=== PATIENT | male | born 1945 | race Caucasian/White ===

== ENCOUNTER 2021-02-22 11:18 | Emergency (ER) | payer OTHER, SELFPAY ==
[2021-02-22] VITALS (8 sets, daily range): BP systolic 98–165; BP diastolic 61–78; PULSE 50–106; RESP 15–18; TEMP 36.3–36.8; O2SAT 99–100
--- NOTE | ~2021-02-22 | XR_ITS ---
EXAMINATION: XR chest 2V DATE: 02/22/2021 13:20 INDICATION: Cough TECHNIQUE: AP and lateral views of the chest are obtained. COMPARISON: None available FINDINGS: The lungs are free of acute opacities. There is no pleural effusion or pneumothorax. The ca rdiomediastinal silhouette is normal. There is moderate thoracic spondylosis. IMPRESSION: 1. No acute cardiopulmonary abnormality. Reviewed, dictated and finalized at location A. OR ANALYST PROGRAMMER
--- NOTE | ~2021-02-22 | CT_ITS ---
EXAMINATION: CT abdomen pelvis w con DATE: 02/22/2021 14:45 INDICATION: Low abdominal pain. Diarrhea. TECHNIQUE: Computed tomography (CT) of the abdomen and pelvis was performed with 100 mL Omnipaque 350 intravenous contrast. Automated exposure control and iterative reconstruction technique were employe d. The dose-length product was 583.06 mGy-cm. COMPARISON: None. FINDINGS: The visualized portions of the lung bases demonstrate mild atelectasis. Calcified pulmonary nodules and calcified hilar lymph nodes are consistent with old granulomatous disease. No pleural ef fusion. The heart size is normal. There are coronary artery calcifications. No pericardial effusion. There is a small sliding hiatal hernia. The liver is normal. There are changes of cholecystectomy. Ca lcifications in the spleen are consistent with old granulomatous disease. The pancreas and adrenal gl ands are normal. There is cortical thinning of the kidneys. There is liquid stool in the colon correl ating with the symptom of diarrhea. There are scattered diverticula in the colon. There is mild wall thickening throughout the colon, consistent with colitis. The appendix is normal. The prostate is mil dly enlarged. There is a diverticulum of the third portion of the duodenum. There are no pathological ly enlarged lymph nodes. There is no free intraperitoneal fluid. There is mild thoracolumbar spondylo sis. IMPRESSION: 1. Pancolitis. Reviewed, dictated and finalized at location A. MECHANIC HELPER IMPRESSION: 1. Pancolitis.
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
--- NOTE | 2021-02-22 13:22 | PC.NURSE ---
Called Jacqueline from vascular access team for assistance with line and labs.
--- NOTE | 2021-02-22 13:44 | PC.NURSE ---
Jacqueline from vascular access at bedside
[2021-02-22] MEDS: SODIUM CHLORIDE 0.9% IV 1,000 ML 999 ML IV CONT ×3 (14:01→17:42)
[2021-02-22 14:06] LABS: Hematocrit 33.9 % (42.0-52.0); Mean Corpuscular HGB Conc 32.4 g/dl (32-36); Mean Corpuscular Hemoglobin 25.8 pg (26-34); Mean Corpuscular Volume 79.4 fl (80-100); Mean Platelet Volume 8.8 fl (7.4-10.4); Platelet Count Result 434 k/mm3 (150-375); Red Blood Count 4.27 M/mm3 (4.6-6.20); Red Cell Distribution Width 13.6 % (11.5-14.5); White Blood Count 8.6 K/mm3 (4.5-10.0)
[2021-02-22 14:16] LABS: Alanine Aminotransferase 16 U/L (4-50); Albumin Level 3.2 g/dL (3.5-5.1); Alkaline Phosphatase 76 U/L (38-126); Anion Gap 8 mmol/L (8-16); Aspartate Amino Transferase 24 U/L (17-59); Bilirubin,Total 0.5 mg/dL (0.2-1.3); Blood Urea Nitrogen 10 mg/dL (9-20); Calcium 8.8 mg/dL (8.4-10.2); Carbon Dioxide 29 mmol/L (22-30); Chloride 94 mmol/L (98-107); Estimated CRCL calculation 38 ml/min; Estimated Glomerular Filt Rate 50; Glucose 98 mg/dL (65-110); Lipase 38 U/L (23-300); Potassium 3.4 mmol/L (3.4-5.0); Sodium 131 mmol/L (137-145)
--- NOTE | 2021-02-22 14:33 | PC.NURSE ---
Pt off floor in CT scan
[2021-02-22 14:46] LABS: Band Neutrophils Percent 11 % (0-6); Lymphocytes Absolute Manual 0.86 K/mm3 (1.1-4.5); Monocytes Absolute Manual 0.43 K/mm3 (0.1-0.90); Monocytes Percent Manual 5 % (3-9); Neutrophils Absolute Manual 7.31 K/mm3 (1.3-6.7); Neutrophils Percent Manual 74 % (46-73); Total Cells Counted 100
[2021-02-22 14:47] LABS: Platelet Estimate Increased (Adequate)
[2021-02-22 16:50] LABS: Add Urine Microscopic? YES; Appearance Urine Clear (Clear); Bilirubin Urine Negative (Negative); Blood Urine Negative (Negative); Color Urine Yellow (Yellow); Glucose Urine UA Negative (Negative); Ketones Urine Trace mg/dL (Negative); Leukocyte Esterase Ur Negative LEU/UL (Negative); Mucus Urine Rare /lpf; Nitrate Urine Negative (Negative); Protein Urine Negative (Negative); RBC Urine 0-2 /hpf (0-2); Squamous Epithelial Cell Urine Rare /hpf (Few); Urobilinogen Urine Negative mg/dL (<2.0); WBC Urine 0-3 /hpf
--- NOTE | 2021-02-22 16:50 | PC.NURSE ---
Orthostatics complete. Pt incontinent of stool, assisted to BSC.
[2021-02-22 16:54] LABS: Specific Grav Ur 1.053 (1.001-1.035)
--- NOTE | 2021-02-22 19:01 | PC.NURSE ---
Spoke with lab as stool sample was walked down earlier by Bone Glue Maker, Natasha, but is not showing as received. Specimen is a send out but confirmed with Montez the sample is present in the lab.
== END 2021-02-22 18:55 | disposition home or self-care (01) ==
PROVIDERS: Emergency Provider General Practice
DX: K52.9 Noninfective gastroenteritis and colitis, unspecified (principal); I25.2 Old myocardial infarction; F03.90 Unspecified dementia, unspecified severity, without behavioral disturbance, psychotic disturbance, mood disturbance, and anxiety; Z86.73 Personal history of transient ischemic attack (TIA), and cerebral infarction without residual deficits; Z87.891 Personal history of nicotine dependence
CPT/HCPCS: 36415; 71046; 74177; 80053; 81001; 83690; 85025; 87324; 96360; 96361; 99284; J7030; Q9967

== ENCOUNTER 2021-09-04 12:56 | Inpatient (IN) | payer MEDICARE, MEDICAID, SELFPAY ==
--- NOTE | ~2021-09-04 | XR_ITS ---
EXAMINATION: XR knee RT 3V DATE: 09/04/2021 14:37 INDICATION: Right knee pain TECHNIQUE: Three views of the right knee were obtained. COMPARISON: None. FINDINGS: Alignment is normal. No fracture or osteochondral lesion. Joint spaces are normal with no e rosions. No joint effusion/synovitis. There is anterior soft tissue swelling of the knee. Scattered soft tissue calcifications are also noted about the knee and distal femur. IMPRESSION: 1. No acute osseous abnormality. Reviewed, dictated and finalized at location A.
--- NOTE | ~2021-09-04 | CT_ITS ---
EXAMINATION: CT brain wo con DATE: 09/05/2021 18:06 INDICATION: AMS . TECHNIQUE: Computed tomography (CT) of the head was performed without intravenous contrast. The mA wa s adjusted according to patient size. Iterative reconstruction technique was employed. The dose-lengt h product was 394.35 mGy-cm. COMPARISON: None FINDINGS: Exam limited by nonstandard positioning. No acute intracranial hemorrhage or extra-axial fluid collection. No hydrocephalus, mass, or herniation. No acute ischemic infarct. Unremarkable dural venous sinus attenuation. No acute osseous abnormality. The aerated spaces are clear. Mild atrophy. Atherosclerotic intracranial calcifications. IMPRESSION: No acute intracranial process. Reviewed, dictated and finalized at location K.
--- NOTE | ~2021-09-04 | CT_ITS ---
EXAMINATION: CT abdomen pelvis wo con DATE: 09/04/2021 14:30 INDICATION: GI bleed TECHNIQUE: Computed tomography (CT) of the abdomen and pelvis was performed without intravenous contr ast. The dose-length product (DLP) was 302.34 mGy-cm. Automated exposure control and iterative recons truction technique were employed. COMPARISON: 02/22/2021 FINDINGS: Calcified pulmonary nodules are consistent with old granulomatous disease. The heart size i s normal. There is a small sliding hiatal hernia. The gallbladder is surgically absent. The liver, sp tushar, pancreas, and adrenal glands are normal. The kidneys are unremarkable. There is calcified ather osclerosis of the aorta and many of the other arteries. There is diffuse wall thickening throughout t he colon. No pathologically enlarged abdominal or pelvic lymph nodes are identified. There is no free intraperitoneal gas or evidence of bowel obstruction. IMPRESSION: 1. Findings consistent with pancolitis. Reviewed, dictated and finalized at location A.
[2021-09-04 13:00] VITALS: PULSE 86; RESP 18; TEMP 36.1; O2SAT 100
--- NOTE | 2021-09-04 13:04 | ED.GIBLEED ---
HPI - GI Bleed General Chief complaint: GI Bleed Stated complaint: rectal bleed History of Present Illness HPI Narrative: pt here wiht bloody stool in depends pt has no c/o temp low and feels cold chills no f/abd pain/urine chagnes/cp/sob/f/uri/ or other c/o pt doen'st think he's on blood thinners or h/o gi bleed Related Data Allergies Allergy/AdvReac Type Severity Reaction Status Date / Time shellfish derived Allergy Hives Verified 02/22/21 12:05 Review of Systems Constitutional: Comments: CONSTITUTIONAL: Denies fever, chills, or sweats. EYES: Denies visual changes, redness, or discharge. ENT: Denies rhinorrhea, congestion, sore throat, or otalgia. CARDIOVASCULAR: Denies chest pain, palpitations, or edema. RESPIRATORY: Denies cough or dyspnea. GASTROINTESTINAL: Denies abdominal pain, nausea, vomiting, or diarrhea. GENITOURINARY: Denies dysuria or hematuria. pt found by NH staff with bloody stool in depends pt has no c/o SKIN: Denies rash or itching. MUSCULOSKELETAL: Denies back pain, joint pain, or myalgia. NEUROLOGIC: Denies headache, numbness, or weakness. PSYCHIATRIC: Denies anxiety or depression. [facility] Past Medical History Medical History (Updated 09/04/21 @ 14:54 by Nel Charels MD) CVA (cerebral vascular accident) Myocardial infarction Social History Social History (Updated 02/22/21 @ 12:34 by Nya Landrum MD) Smoking status: Former smoker Exam Const: Other: APPEARANCE: Well appearing, no pain in distress, well-nourished. Head normocephalic atraumtaic. EYES: PERRLA/EOMI, conjunctivae very clear. NOSE: Normal no drainage EARS:TMS clear Juan David Salinas, with good light reflex. THROAT: Pharynx clear, no exudate. NECK: Supple. No adenopathy, no masses. RESPIRATORY: Airway patent, repsirations nonlabored. Clear to auscultation bilaterally, no rales, rhonchi, wheezing. CARDIOVASCULAR: Regular rate and rhythm without murmurs rubs or gallops. ABDOMINAL: Soft, nontender, nondistended, no hepatosplenomegally heme positive mucus in vault no stool no hemorrhoids externally or fistulas MUSCULOSKELETAl: Moves all extremities. Strenght/ROM intact, No edema, No calf tenderness. but has right knee pain no deformity says pain all day isn't sure if xray done says no fall no swelling noted no ankle/hip pain on exam able to fully flex on own NEURO: Alert. Cranial nerves II through XII intact. Good gait. Good coordination SKIN:: Warm, dry. Normal Color PSYCHIATRIC: Normal affect/mood, normal interaction with parents. Course Reevaluation(s) Reevaluation #1: pt getting US guided iv for blood/access at 1410 Consultations Consultation #1: calling hospitalist for admission at 1453 Vital Signs Vital signs: Vital Signs Temperature 36.1 C L 09/04/21 13:00 Pulse Rate 86 09/04/21 13:00 Respiratory Rate 18 09/04/21 13:00 Pulse Oximetry 100 09/04/21 13:00 Oxygen Delivery Room Air 09/04/21 13:00 Temperature 36.1 C L 09/04/21 13:00 Pulse Rate 86 09/04/21 13:00 Respiratory Rate 18 09/04/21 13:00 Pulse Oximetry 100 09/04/21 13:00 Oxygen Delivery Room Air 09/04/21 13:00 MDM - GI Bleed Lab Data Result diagrams: 09/04/21 14:21 09/04/21 14:21 Labs: Lab Results 09/04/21 09/04/21 09/04/21 Range/Units 14:21 14:21 14:21 WBC 8.4 (4.5-10.0) K/mm3 RBC 4.15 L (4.6-6.20) M/mm3 Hgb 12.1 L (14.0-18.0) g/dL Hct 36.8 L (42.0-52.0) % MCV 88.7 (80-100) fl MCH 29.2 (26-34) pg MCHC 32.9 (32-36) g/dl RDW 14.0 (11.5-14.5) % Plt Count 327 (150-375) k/mm3 MPV 8.6 (7.4-10.4) fl Immature Gran % (Auto) Not Reportable Neut % (Auto) Not Reportable Lymph % (Auto) Not Reportable Collier % (Auto) Not Reportable Eos % (Auto) Not Reportable Baso % (Auto) Not Reportable Lymph # (Auto) Not Reportable Collier # (Auto) Not Reportable Eos # (Auto) Not Reportable Baso # (Auto) Not Reportable
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
--- NOTE | 2021-09-04 13:39 | PC.NURSE ---
IV nurse notified that we need ultrasound in order to gain IV access.
[2021-09-04 14:33] LABS: Hematocrit 36.8 % (42.0-52.0); Hemoglobin 12.1 g/dL (14.0-18.0); Mean Corpuscular HGB Conc 32.9 g/dl (32-36); Mean Corpuscular Hemoglobin 29.2 pg (26-34); Mean Corpuscular Volume 88.7 fl (80-100); Mean Platelet Volume 8.6 fl (7.4-10.4); Platelet Count Result 327 k/mm3 (150-375); Red Blood Count 4.15 M/mm3 (4.6-6.20); White Blood Count 8.4 K/mm3 (4.5-10.0)
[2021-09-04 14:43] LABS: Alanine Aminotransferase 9 U/L (6-50); Albumin Level 2.7 g/dL (3.5-5.1); Alkaline Phosphatase 74 U/L (38-126); Anion Gap 5 mmol/L (8-16); Aspartate Amino Transferase 16 U/L (17-59); Bilirubin,Total 0.7 mg/dL (0.2-1.3); Blood Urea Nitrogen 16 mg/dL (9-20); Calcium 7.8 mg/dL (8.4-10.2); Carbon Dioxide 27 mmol/L (22-30); Chloride 97 mmol/L (98-107); Estimated CRCL calculation 52 ml/min; Estimated Glomerular Filt Rate > 60; Glucose 92 mg/dL (65-110); Lipase 26 U/L (23-300); Potassium 3.7 mmol/L (3.4-5.0); Sodium 129 mmol/L (137-145)
[2021-09-04 14:45] LABS: INR 1.3
[2021-09-04 14:46] LABS: Partial Thromboplastin Time 32.6 SECONDS (22.3-36.8)
[2021-09-04] MEDS: SODIUM CHLORIDE 0.9% IV 1,000 ML 999 ML IV CONT (14:46)
[2021-09-04] MEDS: ONDANSETRON INJ 4 MG/2 ML VIAL IV PUSH (14:47)
[2021-09-04] MEDS: PANTOPRAZOLE SODIUM IV 40 MG VIAL IV PUSH (14:47)
[2021-09-04] MEDS: metroNIDAZOLE 500 MG/ISO 100ML 500 MG/100 ML BAG 100 MG IVPB (14:59)
[2021-09-04 15:17] LABS: Band Neutrophils Percent 13 % (0-6); Lymphocytes Absolute Manual 0.92 K/mm3 (1.1-4.5); Monocytes Percent Manual 6 % (3-9); Neutrophils Absolute Manual 6.97 K/mm3 (1.3-6.7); Neutrophils Percent Manual 70 % (46-73); Platelet Estimate Adequate (Adequate); Total Cells Counted 100
[2021-09-04 15:22] VITALS: BP 130/73; PULSE 19; RESP 18
--- NOTE | 2021-09-04 16:56 | PC.NURSE ---
unable to collect stool. Pt had one episode of watery blood tinged stool.
[2021-09-04 17:30] VITALS: BMI 23.4
--- NOTE | 2021-09-04 17:30 | ADMGEN ---
This patient, Philip Hernández, was admitted to Medical Room 248-. Patient/family oriented to hospital policies and general routines including ID bracelet, bed and alarms, visiting hours, pain management, procedures, bathroom and other care routines, personal items, smoking policy, room service/diet, and visiting hours. Information on how to activate the Rapid Response Team has been discussed. Patient/Family are encouraged to report perceived risks to care and to ask questions if they do not understand what they are told or what they should do.
[2021-09-04 18:23] VITALS: BP 133/74; PULSE 90; RESP 16; TEMP 36.6; O2SAT 100
[2021-09-04 19:46] VITALS: PULSE 107; O2SAT 94
[2021-09-04 20:00] VITALS: PULSE 107; RESP 16; O2SAT 94
--- NOTE | 2021-09-04 20:39 | PM.IMHP ---
H&P: HPI History of Present Illness Date/Time: 09/04/21 20:39 Chief Complaint: blood in the stools Narrative: this is a 75-year-old male with past medical history significant for stroke, myocardial infarction. Patient presents to the emergency room for evaluation of bright red blood per rectum according to patient he has been his usual state of health he denies any fevers, rigors, chills, abdominal pain, nausea, vomiting, diarrhea, no weight loss. preliminary workup was significant for CT abdomen and pelvis with findings typical for pancolitis, CBC showed a hemoglobin of 10 hematocrit of 33 MCV 88 sodium 129 a Hemoccult was positive. patient has been admitted for further evaluation, management and treatment. Review of Systems Review of Systems: Blood in the stools Constitutional: Constitutional: Denies chills, Denies fever(s), Denies malaise, Denies night sweats, Denies poor appetite and Denies weight loss Eyes: Eyes: Denies change in vision ENT: Denies dysphagia, Denies vertigo, Denies dizziness and Denies odynophagia Cardiovascular: Cardiovascular: Denies chest pain, Denies irregular heart rhythm, Denies lightheadedness, Denies palpitations and Denies dyspnea on exertion Respiratory: Respiratory: Denies chest congestion, Denies cough and Denies excessive phlegm production Gastrointestinal: Gastrointestinal: Denies abdominal pain, Reports hematochezia, Denies change in stool character, Denies coffee ground emesis, Denies dyspepsia, Denies heartburn, Denies nausea and Denies vomiting Genitourinary: Genitourinary: Denies dysuria Musculoskeletal: Musculoskeletal: Denies arthralgias, Denies joint swelling and Denies limited range of motion Integumentary/Breasts: Skin/Breast: Denies rash Neurologic: Denies focal weakness and Denies Sensory deficit (Neuro) Psychiatric: Psychiatric: Reports no additional psychiatric complaints and Reports as per HPI Endocrine: Endocrine: Denies cold intolerance, Denies flushing, Denies heat intolerance, Denies polyphagia, Denies polydipsia and Denies palpitations Hematologic/Lymphatic: Hematologic/Lymphatic: Reports no additional hematologic/lymphatic complaints and Reports as per HPI Allergic/Immunologic: Allergic/Immunologic: Reports no additional allergic/immunologic complaints and Reports as per HPI [facility] Past Medical History Medical History (Updated 09/06/21 @ 11:13 by Huma Dover PA-C) CVA (cerebral vascular accident) Myocardial infarction Social History Social History (Updated 02/22/21 @ 12:34 by Nya Landrum MD) Smoking status: Former smoker Tobacco type: pipe and cigars Alcohol intake: never Substance use: never Substance use type: does not use Spiritual care concerns: No Meds Home Medications and Allergies Home Medications Medication Instructions Recorded Confirmed Type acetaminophen 325 mg tablet 650 mg PO 6XD PRN Pain, Mild 09/04/21 09/04/21 History famotidine 20 mg tablet 20 mg PO BID 09/04/21 09/04/21 History folic acid 1 mg tablet 1 mg PO DAILY 09/04/21 09/04/21 History loperamide 2 mg capsule 2 mg PO QID PRN Diarrhea 09/04/21 09/04/21 History midodrine 2.5 mg tablet 7.5 mg PO QID 09/04/21 09/04/21 History Allergies Allergy/AdvReac Type Severity Reaction Status Date / Time shellfish derived Allergy Hives Verified 09/04/21 18:12 Vital Signs Vital Signs - 24 hr 09/04/21 13:00 09/04/21 15:22 09/04/21 18:23 Temperature 96.9 F L 97.8 F Pulse Rate 86 19 L 90 Respiratory Rate 18 18 16 Blood Pressure 130/73 133/74 Pulse Oximetry 100 100 Oxygen Delivery Room Air 09/04/21 19:46 Temperature Pulse Rate 107 H Respiratory Rate Blood Pressure Pulse Oximetry 94 Oxygen Delivery Room Air Exam Const: General: comfortable, no acute distress, well developed, alert, awake and ill appearing chronically Nutritional Appearance: average body habitus Orientation/consciousness: patient oriented x3 HENMT: Head: nor
[2021-09-04 23:46] VITALS: BP 106/64; PULSE 95; RESP 21; TEMP 36.9; O2SAT 100
[2021-09-05] MEDS: metroNIDAZOLE 500 MG/ISO 100ML 500 MG/100 ML BAG 100 MG IVPB ×3 (02:41→18:49)
[2021-09-05] MEDS: ACETAMINOPHEN 325 MG TABLET 650 MG PO (02:41)
[2021-09-05] MEDS: LOPERAMIDE HCL 2 MG CAPSULE PO (02:42)
[2021-09-05] MEDS: ONDANSETRON INJ 4 MG/2 ML VIAL IV PUSH (02:43)
[2021-09-05 06:00] VITALS: BP 113/51; PULSE 99; RESP 20; TEMP 36.1; O2SAT 98
[2021-09-05 07:48] LABS: Hematocrit 33.2 % (42.0-52.0); Hemoglobin 10.9 g/dL (14.0-18.0); Mean Corpuscular HGB Conc 32.8 g/dl (32-36); Mean Corpuscular Hemoglobin 28.9 pg (26-34); Mean Corpuscular Volume 88.1 fl (80-100); Mean Platelet Volume 8.5 fl (7.4-10.4); Platelet Count Result 273 k/mm3 (150-375); Red Blood Count 3.77 M/mm3 (4.6-6.20); Red Cell Distribution Width 13.9 % (11.5-14.5); White Blood Count 7.3 K/mm3 (4.5-10.0)
[2021-09-05 08:02] LABS: Alanine Aminotransferase 9 U/L (6-50); Albumin Level 2.3 g/dL (3.5-5.1); Alkaline Phosphatase 62 U/L (38-126); Anion Gap 5 mmol/L (8-16); Aspartate Amino Transferase 16 U/L (17-59); Bilirubin,Total 0.5 mg/dL (0.2-1.3); Blood Urea Nitrogen 12 mg/dL (9-20); Calcium 7.5 mg/dL (8.4-10.2); Carbon Dioxide 23 mmol/L (22-30); Chloride 102 mmol/L (98-107); Estimated CRCL calculation 52 ml/min; Estimated Glomerular Filt Rate > 60; Glucose 86 mg/dL (65-110); Potassium 3.4 mmol/L (3.4-5.0); Sodium 130 mmol/L (137-145)
[2021-09-05 08:19] LABS: Band Neutrophils Percent 14 % (0-6); Lymphocytes Absolute Manual 1.53 K/mm3 (1.1-4.5); Monocytes Absolute Manual 0.43 K/mm3 (0.1-0.90); Monocytes Percent Manual 6 % (3-9); Neutrophils Absolute Manual 5.32 K/mm3 (1.3-6.7); Neutrophils Percent Manual 59 % (46-73); Total Cells Counted 100
[2021-09-05 08:20] LABS: Atypical Lymphocytes Present; Platelet Estimate Adequate (Adequate)
[2021-09-05] MEDS: FOLIC ACID 1 MG TABLET PO (09:47)
[2021-09-05] MEDS: FAMOTIDINE 20 MG TABLET PO ×2 (09:47→17:32)
[2021-09-05] MEDS: MIDODRINE HCL 2.5 MG TABLET 7.5 MG PO ×4 (09:47→20:16)
[2021-09-05 10:01] VITALS: BMI 23.4
[2021-09-05 13:33] VITALS: BP 117/55; PULSE 64; RESP 18; TEMP 36.2; O2SAT 98
--- NOTE | 2021-09-05 15:56 | PM.IMPN ---
Progress Note: A&P Assessment and Plan (1) Acute metabolic encephalopathy: Code(s): G93.41 - Metabolic encephalopathy Status: Acute Assessment and Plan: -baseline mental status unknown -chart indicates hx of dementia -could be secondary to acute infection -check CT head, UA (2) Pancolitis: Code(s): K51.00 - Ulcerative (chronic) pancolitis without complications Status: Acute Assessment and Plan: -noted on CT abd/pelv -no fevers or leukocytosis -continue Levaquin/Flagyl (3) Acute GI bleeding: Code(s): K92.2 - Gastrointestinal hemorrhage, unspecified Status: Acute Assessment and Plan: -ER notes indicate he was having bright red blood in his stool -likely secondary to pancolitis -stool occult ordered -monitor hgb, has been stable, today is 12.1 (4) Hyponatremia: Code(s): E87.1 - Hypo-osmolality and hyponatremia Status: Acute Assessment and Plan: -appears to be chronic, near his baseline -monitor BMP Subjective Date/time seen: 09/05/21 15:56 Interval history: 75 yo male w/ hx of [place], CVA, and dementia, admitted for pancolitis. Hx limited secondary to mental status. Some hx obtained from chart review. Pt A/Ox1-2. Denies pain currently but does have abdominal tenderness. Somnolent but arousable. Denies N/V. No cp/sob. No other complaints. Review of Systems Review of Systems: ROS unobtainable: Yes unobtainable due to mental status Exam Narrative: General: No acute distress,chronically ill appearing, somnolent but arousable Eyes: PERRL, no scleral icterus HEENT: NCAT, external ears normal, MMM Respiratory: No respiratory distress, Lungs CTA bilaterally, no wheezing Cardiovascular: RRR, no murmur Abdominal: Soft, moderate diffuse ttp, non distended Musculoskeletal: Moves all 4 extremities, no edema Neurological: A/Ox1-2, no facial asymmetry Skin: Warm, dry Psychiatric: Confused Objective Data Vital Signs Vital Signs: Vital Signs - 24 hr 09/04/21 18:23 09/04/21 19:46 09/04/21 20:00 Temperature 97.8 F Pulse Rate 90 107 H 107 H Respiratory Rate 16 16 Blood Pressure 133/74 Pulse Oximetry 100 94 94 Oxygen Delivery Room Air Room Air 09/04/21 23:46 09/05/21 06:00 09/05/21 13:33 Temperature 98.4 F 97.0 F L 97.1 F L Pulse Rate 95 99 64 Respiratory Rate 21 H 20 18 Blood Pressure 106/64 113/51 L 117/55 L Pulse Oximetry 100 98 98 Oxygen Delivery Intake/Output Intake/Output: Intake & Output 09/02/21 09/03/21 09/04/21 09/05/21 23:59 23:59 23:59 23:59 Intake Total 1250 430 Output Total 400 Balance 1250 30 Meds/Results Medications: Active Medications Generic Name Dose Route Start Last Admin Trade Name Freq PRN Reason Stop Dose Admin Acetaminophen 650 mg 09/05/21 01:42 09/05/21 02:41 Acetaminophen 325 Mg Tablet PO 650 mg Q4H PRN Administration Pain Rated 1-3 Collagenase 1 applic 09/05/21 09:00 Collagenase Oint 30 Gm Tube TOPICAL QAM [facility] Famotidine 20 mg 09/05/21 09:00 09/05/21 09:47 Famotidine 20 Mg Tablet PO 20 mg BID ANKIT Administration Folic Acid 1 mg 09/05/21 09:00 09/05/21 09:47 Folic Acid 1 Mg Tablet PO 1 mg DAILY ANKIT Administration Levofloxacin/Dextrose 750 mg in 150 mls @ 100 mls/hr 09/05/21 15:00 Levaquin 750 Mg/D5w 150 Ml IVPB Q24H ANKIT Metronidazole 500 mg in 100 mls @ 100 mls/hr 09/05/21 02:00 09/05/21 09:46 Flagyl 500 Mg/Iso Soln 100 Ml IVPB 100 mls/hr Q8H ANKIT Administration Loperamide HCl 2 mg 09/05/21 01:42 09/05/21 02:42 Loperamide Hcl 2 Mg Capsule PO 2 mg QID PRN Administration Diarrhea Midodrine 7.5 mg 09/05/21 08:00 09/05/21 11:50 Midodrine Hcl 2.5 Mg Tablet PO 7.5 mg 0800,1200,1600,2000 ANKIT Administration Ondansetron HCl 4 mg 09/04/21 20:37 09/05/21 02:43 Ondansetron Inj 4 Mg/2 Ml Vial IV PUSH 4 mg Q4H PRN A
[2021-09-05] MEDS: COLLAGENASE OINT 30 GM TUBE 1 APPLIC TOPICAL (18:49)
[2021-09-05 20:00] VITALS: PULSE 64; RESP 18; O2SAT 98
[2021-09-05 21:48] LABS: IFOB Positive Control Positive; Immunochemical Fecal Occult Bl Positive (N)
[2021-09-05 22:00] VITALS: BP 129/73; PULSE 86; RESP 21; TEMP 36.8; O2SAT 100
[2021-09-06] MEDS: metroNIDAZOLE 500 MG/ISO 100ML 500 MG/100 ML BAG 100 MG IVPB ×3 (01:24→17:49)
[2021-09-06 02:11] LABS: Appearance Urine Clear (Clear); Bilirubin Urine Negative (Negative); Blood Urine Negative (Negative); Color Urine Yellow (Yellow); Glucose Urine UA Negative (Negative); Ketones Urine Negative (Negative); Leukocyte Esterase Ur Negative LEU/UL (Negative); Nitrate Urine Negative (Negative); Protein Urine 1+ mg/dL (Negative); Specific Grav Ur >= 1.030 (1.001-1.035); Urobilinogen Urine 0.2 mg/dL (<2.0); pH Urine 6.5 (5.0-9.0)
[2021-09-06 02:28] LABS: Bacteria Urine Trace /hpf; Mucus Urine Rare /lpf; Squamous Epithelial Cell Urine Rare /hpf (Few); WBC Urine 0-3 /hpf
[2021-09-06 03:31] LABS: Add Urine Microscopic? YES
[2021-09-06 06:03] VITALS: BP 103/50; PULSE 74; RESP 21; TEMP 36.9; O2SAT 100
[2021-09-06 06:37] LABS: Basophils Absolute Auto 0.1 K/mm3 (0.0-0.1); Basophils Percent Auto 1.1 % (0.2-1.2); Eosinophils Percent Auto 0.3 % (0-4.4); Hematocrit 33.9 % (42.0-52.0); Hemoglobin 10.9 g/dL (14.0-18.0); Immature Granulocyte Absolute 0.08 K/mm3 (0.00-0.031); Lymphocytes Absolute Auto 0.77 K/mm3 (0.9-3.2); Lymphocytes Percent Auto 9.7 % (18.3-44.2); Mean Corpuscular HGB Conc 32.2 g/dl (32-36); Mean Corpuscular Hemoglobin 29.1 pg (26-34); Mean Corpuscular Volume 90.6 fl (80-100); Mean Platelet Volume 8.9 fl (7.4-10.4); Monocytes Absolute Auto 0.5 K/mm3 (0.1-0.6); Monocytes Percent Auto 6.3 % (2.6-8.5); Neutrophils Absolute Auto 6.5 K/mm3 (1.3-6.7); Neutrophils Percent Auto 81.6 % (45.5-73.1); Platelet Count Result 295 k/mm3 (150-375); Red Blood Count 3.74 M/mm3 (4.6-6.20); Red Cell Distribution Width 14.1 % (11.5-14.5)
[2021-09-06 06:41] LABS: Alanine Aminotransferase 6 U/L (6-50); Albumin Level 2.2 g/dL (3.5-5.1); Alkaline Phosphatase 58 U/L (38-126); Anion Gap 5 mmol/L (8-16); Aspartate Amino Transferase 13 U/L (17-59); Bilirubin,Total 0.3 mg/dL (0.2-1.3); Blood Urea Nitrogen 7 mg/dL (9-20); Calcium 7.5 mg/dL (8.4-10.2); Carbon Dioxide 21 mmol/L (22-30); Chloride 105 mmol/L (98-107); Estimated CRCL calculation 58 ml/min; Estimated Glomerular Filt Rate > 60; Glucose 69 mg/dL (65-110); Potassium 3.2 mmol/L (3.4-5.0); Sodium 131 mmol/L (137-145)
[2021-09-06] MEDS: FAMOTIDINE 20 MG TABLET PO ×2 (10:24→16:27)
[2021-09-06] MEDS: POTASSIUM CHLORIDE 20 MEQ TABLET 40 MEQ PO (10:24)
[2021-09-06] MEDS: MIDODRINE HCL 2.5 MG TABLET 7.5 MG PO ×4 (10:25→20:12)
[2021-09-06] MEDS: FOLIC ACID 1 MG TABLET PO (10:25)
[2021-09-06] MEDS: COLLAGENASE OINT 30 GM TUBE 1 APPLIC TOPICAL (10:25)
[2021-09-06] MEDS: ONDANSETRON INJ 4 MG/2 ML VIAL IV PUSH (10:47)
--- NOTE | 2021-09-06 11:10 | PM.IMPN ---
Progress Note: A&P Assessment and Plan (1) Acute metabolic encephalopathy: Code(s): G93.41 - Metabolic encephalopathy Status: Acute Assessment and Plan: -baseline mental status unknown - tried calling but number in chart was disconnected -chart indicates hx of dementia -could be secondary to acute infection -ct head and UA unremarkable (2) Pancolitis: Code(s): K51.00 - Ulcerative (chronic) pancolitis without complications Status: Acute Assessment and Plan: -noted on CT abd/pelv -no fevers or leukocytosis -continue Levaquin/Flagyl -still having persistent diarrhea (3) Acute GI bleeding: Code(s): K92.2 - Gastrointestinal hemorrhage, unspecified Status: Acute Assessment and Plan: -ER notes indicate he was having bright red blood in his stool -likely secondary to pancolitis -stool occult ordered -monitor hgb, has been stable, today is 10.9 (4) Hyponatremia: Code(s): E87.1 - Hypo-osmolality and hyponatremia Status: Acute Assessment and Plan: -appears to be chronic, near his baseline -monitor BMP (5) Hypokalemia: Code(s): E87.6 - Hypokalemia Status: Acute Assessment and Plan: -mild -monitor and replace as indicated -daily BMP Subjective Date/time seen: 09/06/21 11:10 Interval history: 75 yo male w/ hx of [place], CVA, and dementia, admitted for pancolitis. Hx limited secondary to mental status. Some hx obtained from chart review. Pt A/Ox1-2. Denies N/V although RN states he was dry heaving with his pills this AM. He also denies diarrhea but RN states he just had an episode of watery stool. Denies abdominal pain but does have tenderness. Further hx limited secondary to mental status. Attempted to call today but number in chart was disconnected. Review of Systems Review of Systems: ROS unobtainable: Yes unobtainable due to mental status Exam Narrative: General: No acute distress,chronically ill appearing, somnolent but arousable Eyes: PERRL, no scleral icterus HEENT: NCAT, external ears normal, MMM Respiratory: No respiratory distress, Lungs CTA bilaterally, no wheezing Cardiovascular: RRR, no murmur Abdominal: Soft, moderate diffuse ttp, non distended Musculoskeletal: Moves all 4 extremities, no edema Neurological: A/Ox1-2, no facial asymmetry Skin: Warm, dry Psychiatric: Confused Objective Data Vital Signs Vital Signs: Vital Signs - 24 hr 09/05/21 13:33 09/05/21 20:00 09/05/21 22:00 Temperature 97.1 F L 98.3 F Pulse Rate 64 64 86 Respiratory Rate 18 18 21 H Blood Pressure 117/55 L 129/73 Pulse Oximetry 98 98 100 Oxygen Delivery Room Air 09/06/21 06:03 09/06/21 08:00 Temperature 98.5 F Pulse Rate 74 Respiratory Rate 21 H Blood Pressure 103/50 L Pulse Oximetry 100 Oxygen Delivery Room Air Intake/Output Intake/Output: Intake & Output 09/03/21 09/04/21 09/05/21 09/06/21 23:59 23:59 23:59 23:59 Intake Total 1250 780 340 Output Total 400 400 Balance 1250 380 -60 Meds/Results Medications: Active Medications Generic Name Dose Route Start Last Admin Trade Name Baldomero PRN Reason Stop Dose Admin Acetaminophen 650 mg 09/05/21 01:42 09/05/21 02:41 Acetaminophen 325 Mg Tablet PO 650 mg Q4H PRN Administration Pain Rated 1-3 Collagenase 1 applic 09/05/21 09:00 09/06/21 10:25 Collagenase Oint 30 Gm Tube TOPICAL 1 applic QAM ANKIT Administration Famotidine 20 mg 09/05/21 09:00 09/06/21 10:24 Famotidine 20 Mg Tablet PO 20 mg BID ANKIT Administration Folic Acid 1 mg 09/05/21 09:00 09/06/21 10:25 Folic Acid 1 Mg Tablet PO 1 mg DAILY ANKIT Administration Levofloxacin/Dextrose 750 mg in 150 mls @ 100 mls/hr 09/05/21 15:00 09/05/21 18:55 Levaquin 750 Mg/D5w 150 Ml IVPB Infused Q24H ANKIT Infusion Metronidazole 500 mg in 100 mls @ 100 mls/hr 09/05/21 02:00 0
[2021-09-06] MEDS: KCL 20 MEQ/D5/0.9% SOD CHL 1,000 ML 75 ML IV CONT (12:30)
[2021-09-06 14:00] VITALS: BP 117/65; PULSE 68; RESP 16; TEMP 36.1; O2SAT 99
[2021-09-06 20:29] VITALS: BP 138/69; PULSE 67; RESP 18; TEMP 35.7; O2SAT 100
[2021-09-07] VITALS: BP 136/64; PULSE 71; RESP 20; TEMP 35.7; O2SAT 100
[2021-09-07] MEDS: metroNIDAZOLE 500 MG/ISO 100ML 500 MG/100 ML BAG 100 MG IVPB ×3 (01:51→18:18)
[2021-09-07 04:23] VITALS: BP 110/54; PULSE 70; RESP 16; TEMP 36.3; O2SAT 100
[2021-09-07 05:39] LABS: Basophils Percent Auto 0.4 % (0.2-1.2); Eosinophils Percent Auto 0.6 % (0-4.4); Hematocrit 33.3 % (42.0-52.0); Hemoglobin 11.1 g/dL (14.0-18.0); Immature Granulocyte Absolute 0.08 K/mm3 (0.00-0.031); Immature Granulocyte Percent A 1.1 % (0-0.5); Lymphocytes Absolute Auto 0.57 K/mm3 (0.9-3.2); Lymphocytes Percent Auto 7.8 % (18.3-44.2); Mean Corpuscular HGB Conc 33.3 g/dl (32-36); Mean Corpuscular Hemoglobin 29.8 pg (26-34); Mean Corpuscular Volume 89.5 fl (80-100); Mean Platelet Volume 8.6 fl (7.4-10.4); Monocytes Absolute Auto 0.4 K/mm3 (0.1-0.6); Monocytes Percent Auto 5.1 % (2.6-8.5); Neutrophils Absolute Auto 6.2 K/mm3 (1.3-6.7); Platelet Count Result 264 k/mm3 (150-375); Red Blood Count 3.72 M/mm3 (4.6-6.20); Red Cell Distribution Width 14.2 % (11.5-14.5); White Blood Count 7.3 K/mm3 (4.5-10.0)
[2021-09-07] MEDS: KCL 20 MEQ/D5/0.9% SOD CHL 1,000 ML 75 ML IV CONT (05:50)
[2021-09-07 05:54] LABS: Alanine Aminotransferase 8 U/L (6-50); Albumin Level 2.3 g/dL (3.5-5.1); Alkaline Phosphatase 63 U/L (38-126); Anion Gap 3 mmol/L (8-16); Aspartate Amino Transferase 13 U/L (17-59); Bilirubin,Total 0.3 mg/dL (0.2-1.3); Blood Urea Nitrogen 9 mg/dL (9-20); Calcium 7.6 mg/dL (8.4-10.2); Carbon Dioxide 24 mmol/L (22-30); Chloride 107 mmol/L (98-107); Estimated CRCL calculation 58 ml/min; Estimated Glomerular Filt Rate > 60; Glucose 99 mg/dL (65-110); Potassium 4.1 mmol/L (3.4-5.0); Sodium 134 mmol/L (137-145)
--- NOTE | 2021-09-07 09:07 | PCNFU ---
Nutrition Follow-Up Complete: Suboptimal po intake related to current diet order and reduced appetite as evidenced by clear liquid status with poor intake Goal: Meet nutritional needs Patient is progressing towards goal. We will continue current goal. Pt current nutrition is clear liquids with Ensure Clear TID. Last recorded weight is 65.9 kg, no new weight to report. Bowel Motility:+Bm reported 09/07-no diarrhea per patient. Labs Reviewed:Na 134, Alb 2.3,Hct 33.3,Hgb 11.1 Meds Noted:Folic Acid, Pepcid, Levaquin, Flagyl, KCL Skin: WNL Additional Notes: patient seen today for nutrition follow up. He was starting to drink coffee this morning. He states to not liking the apple flavor of the ensure clear, flavor change to mixed chow. Diet supplement is providing 240 kcals and 8 gms protein. Recommend advancing diet as tolerated per MD orders. Monitoring: Monitor intake, diet order, tolerance, wt, labs. Follow up in 5 days.
[2021-09-07] MEDS: SODIUM CHLORIDE 0.9% IV 1,000 ML 75 ML IV CONT (10:02)
[2021-09-07] MEDS: FOLIC ACID 1 MG TABLET PO (10:09)
[2021-09-07] MEDS: MIDODRINE HCL 2.5 MG TABLET 7.5 MG PO ×4 (10:09→20:36)
[2021-09-07] MEDS: COLLAGENASE OINT 30 GM TUBE 1 APPLIC TOPICAL (10:09)
[2021-09-07] MEDS: FAMOTIDINE 20 MG TABLET PO ×2 (10:09→17:12)
--- NOTE | 2021-09-07 10:19 | PM.IMPN ---
Progress Note: A&P Assessment and Plan (1) Pancolitis: Code(s): K51.00 - Ulcerative (chronic) pancolitis without complications Status: Acute Assessment and Plan: -noted on CT abd/pelv -no fevers or leukocytosis -continue Levaquin/Flagyl -diarrhea improving, move to full liquids -plan on outpatient GI follow up (2) Acute metabolic encephalopathy: Code(s): G93.41 - Metabolic encephalopathy Status: Acute Assessment and Plan: -chart indicates hx of dementia -could be secondary to acute infection -ct head and UA unremarkable -more alert today, family at bedside today states he is at his baseline mental status (3) Acute GI bleeding: Code(s): K92.2 - Gastrointestinal hemorrhage, unspecified Status: Acute Assessment and Plan: -ER notes indicate he was having bright red blood in his stool -likely secondary to pancolitis -stool occult positive -monitor hgb, has been stable, today is 11.1 (4) Hyponatremia: Code(s): E87.1 - Hypo-osmolality and hyponatremia Status: Acute Assessment and Plan: -appears to be chronic, near his baseline -monitor BMP (5) Hypokalemia: Code(s): E87.6 - Hypokalemia Status: Acute Assessment and Plan: -mild -monitor and replace as indicated -daily BMP Subjective Date/time seen: 09/07/21 10:19 Interval history: 75 yo male w/ hx of [place], CVA, and dementia, admitted for pancolitis. Hx limited secondary to mental status. Some hx obtained from chart review. Pt A/Ox2 today. Much more alert. Family at bedside. He is tired but otherwise has no complaints. No abd pain. No N/V. RN reports no diarrhea. Review of Systems Review of Systems: ROS unobtainable: Yes unobtainable due to mental status Exam Narrative: General: No acute distress, chronically ill appearing, elderly Eyes: PERRL, no scleral icterus HEENT: NCAT, external ears normal, MMM Respiratory: No respiratory distress, Lungs CTA bilaterally, no wheezing Cardiovascular: RRR, no murmur Abdominal: Soft, non tender, non distended, no rebound or guarding Musculoskeletal: Moves all 4 extremities, no edema Neurological: A/Ox2, no facial asymmetry, speech clear Skin: Warm, dry Psychiatric: Confused Objective Data Vital Signs Vital Signs: Vital Signs - 24 hr 09/06/21 14:00 09/06/21 20:29 09/06/21 20:00 Temperature 97.0 F L 96.3 F L Pulse Rate 68 67 Respiratory Rate 16 18 Blood Pressure 117/65 138/69 Pulse Oximetry 99 100 Oxygen Delivery Room Air 09/07/21 00:00 09/07/21 04:23 09/07/21 08:00 Temperature 96.2 F L 97.4 F L Pulse Rate 71 70 Respiratory Rate 20 16 Blood Pressure 136/64 110/54 L Pulse Oximetry 100 100 Oxygen Delivery Room Air Intake/Output Intake/Output: Intake & Output 09/04/21 09/05/21 09/06/21 09/07/21 23:59 23:59 23:59 23:59 Intake Total 1250 352 858 4492 Output Total 400 450 Balance 1250 338 650 1068 Meds/Results Medications: Active Medications Generic Name Dose Route Start Last Admin Trade Name Freq PRN Reason Stop Dose Admin Acetaminophen 650 mg 09/05/21 01:42 09/05/21 02:41 Acetaminophen 325 Mg Tablet PO 650 mg Q4H PRN Administration Pain Rated 1-3 Collagenase 1 applic 09/05/21 09:00 09/07/21 10:09 Collagenase Oint 30 Gm Tube TOPICAL 1 applic QAM ANKIT Administration Famotidine 20 mg 09/05/21 09:00 09/07/21 10:09 Famotidine 20 Mg Tablet PO 20 mg BID ANKIT Administration Folic Acid 1 mg 09/05/21 09:00 09/07/21 10:09 Folic Acid 1 Mg Tablet PO 1 mg DAILY ANKIT Administration Levofloxacin/Dextrose 750 mg in 150 mls @ 100 mls/hr 09/05/21 15:00 09/06/21 16:39 Levaquin 750 Mg/D5w 150 Ml IVPB Infused Q24H ANKIT Infusion Metronidazole 500 mg in 100 mls @ 100 mls/hr 09/05/21 02:00 09/07/21 10:04 Flagyl 500 Mg/Iso Soln 100 Ml IVPB 100 mls/hr Q8H ANKIT Administrati
[2021-09-07 14:00] VITALS: BP 115/62; PULSE 70; RESP 18; TEMP 36.3; O2SAT 97
[2021-09-07 20:28] VITALS: BP 145/65; PULSE 69; RESP 76; TEMP 36; O2SAT 100
[2021-09-08] VITALS: BP 138/65; PULSE 69; RESP 16; TEMP 35.8; O2SAT 98
[2021-09-08] MEDS: metroNIDAZOLE 500 MG/ISO 100ML 500 MG/100 ML BAG 100 MG IVPB ×3 (02:01→18:23)
[2021-09-08] MEDS: SODIUM CHLORIDE 0.9% IV 1,000 ML 75 ML IV CONT (02:02)
[2021-09-08 02:59] VITALS: BP 144/70; PULSE 72; RESP 16; TEMP 36; O2SAT 100
[2021-09-08 05:42] LABS: Hemoglobin 10.6 g/dL (14.0-18.0); Mean Corpuscular HGB Conc 32.1 g/dl (32-36); Mean Corpuscular Volume 90.4 fl (80-100); Mean Platelet Volume 8.7 fl (7.4-10.4); Platelet Count Result 255 k/mm3 (150-375); Red Blood Count 3.65 M/mm3 (4.6-6.20); Red Cell Distribution Width 14.3 % (11.5-14.5); White Blood Count 7.8 K/mm3 (4.5-10.0)
[2021-09-08 05:50] LABS: Alanine Aminotransferase 6 U/L (6-50); Alkaline Phosphatase 58 U/L (38-126); Anion Gap 8 mmol/L (8-16); Aspartate Amino Transferase 17 U/L (17-59); Bilirubin,Total 0.2 mg/dL (0.2-1.3); Blood Urea Nitrogen 7 mg/dL (9-20); Calcium 7.2 mg/dL (8.4-10.2); Carbon Dioxide 18 mmol/L (22-30); Chloride 109 mmol/L (98-107); Estimated CRCL calculation 58 ml/min; Estimated Glomerular Filt Rate > 60; Glucose 79 mg/dL (65-110); Sodium 135 mmol/L (137-145)
[2021-09-08 07:43] LABS: Band Neutrophils Percent 21 % (0-6); Eosinophils Absolute Manual 0.07 K/mm3 (0.02-0.5); Eosinophils Percent Manual 1 % (0-4); Lymphocytes Absolute Manual 0.15 K/mm3 (1.1-4.5); Monocytes Absolute Manual 0.31 K/mm3 (0.1-0.90); Monocytes Percent Manual 4 % (3-9); Neutrophils Absolute Manual 7.25 K/mm3 (1.3-6.7); Neutrophils Percent Manual 72 % (46-73); Total Cells Counted 100
[2021-09-08 07:45] LABS: Burr Cells 2+ (NORMAL); Hyperchromasia 2+ (NORMAL); Platelet Estimate Adequate (Adequate)
[2021-09-08 07:49] VITALS: BP 129/61; PULSE 68; RESP 12; TEMP 36.6; O2SAT 100
[2021-09-08 08:36] VITALS: O2SAT 93
[2021-09-08] MEDS: FAMOTIDINE 20 MG TABLET PO ×2 (09:09→16:47)
[2021-09-08] MEDS: MIDODRINE HCL 2.5 MG TABLET 7.5 MG PO ×4 (09:09→19:33)
[2021-09-08] MEDS: FOLIC ACID 1 MG TABLET PO (09:09)
[2021-09-08] MEDS: COLLAGENASE OINT 30 GM TUBE 1 APPLIC TOPICAL (09:10)
--- NOTE | 2021-09-08 09:57 | PM.IMPN ---
Progress Note: A&P Assessment and Plan (1) Pancolitis: Code(s): K51.00 - Ulcerative (chronic) pancolitis without complications Status: Acute Assessment and Plan: -noted on CT abd/pelv -no fevers or leukocytosis -continue Levaquin/Flagyl -diarrhea improving, move to low fiber -plan on outpatient GI follow up (2) Acute metabolic encephalopathy: Code(s): G93.41 - Metabolic encephalopathy Status: Acute Assessment and Plan: -chart indicates hx of dementia -could be secondary to acute infection -ct head and UA unremarkable -more alert today, family at bedside states he is at his baseline mental status (3) Acute GI bleeding: Code(s): K92.2 - Gastrointestinal hemorrhage, unspecified Status: Acute Assessment and Plan: -ER notes indicate he was having bright red blood in his stool -likely secondary to pancolitis -stool occult positive -monitor hgb, has been stable, today is 10.6 (4) Hyponatremia: Code(s): E87.1 - Hypo-osmolality and hyponatremia Status: Acute Assessment and Plan: -appears to be chronic, near his baseline -monitor BMP (5) Hypokalemia: Code(s): E87.6 - Hypokalemia Status: Acute Assessment and Plan: -mild -monitor and replace as indicated -daily BMP -IVF w/ KCL Subjective Date/time seen: 09/08/21 09:57 Interval history: 75 yo male w/ hx of [place], CVA, and dementia, admitted for pancolitis. Hx limited secondary to mental status. Some hx obtained from chart review. Pt A/Ox3 today. Even more alert today. No abd pain. No N/V. Pt admits to mild diarrhea but this is improving. He was doing okay on full liquids, will move to low fiber today. Review of Systems Review of Systems: All systems reviewed & are unremarkable except as noted in HPI and below Exam Narrative: General: No acute distress, chronically ill appearing, elderly, thin stature Eyes: PERRL, no scleral icterus HEENT: NCAT, external ears normal, MMM Respiratory: No respiratory distress, Lungs CTA bilaterally, no wheezing Cardiovascular: RRR, no murmur Abdominal: Soft, non tender, non distended, no rebound or guarding Musculoskeletal: Moves all 4 extremities, no edema Neurological: A/Ox3, no facial asymmetry, speech clear Skin: Warm, dry Psychiatric: Confused Objective Data Vital Signs Vital Signs: Vital Signs - 24 hr 09/07/21 14:00 09/07/21 20:28 09/07/21 20:00 Temperature 97.4 F L 96.8 F L Pulse Rate 70 69 Respiratory Rate 18 76 H Blood Pressure 115/62 145/65 H Pulse Oximetry 97 100 Oxygen Delivery Room Air 09/08/21 00:00 09/08/21 02:59 09/08/21 07:49 Temperature 96.4 F L 96.8 F L 98 F Pulse Rate 69 72 68 Respiratory Rate 16 16 12 Blood Pressure 138/65 144/70 H 129/61 Pulse Oximetry 98 100 100 Oxygen Delivery 09/08/21 08:36 09/08/21 08:00 Temperature Pulse Rate Respiratory Rate Blood Pressure Pulse Oximetry 93 Oxygen Delivery Autopap Autopap Intake/Output Intake/Output: Intake & Output 09/05/21 09/06/21 09/07/21 09/08/21 23:59 23:59 23:59 23:59 Intake Total 020 018 8282 640 Output Total 400 450 Balance 171 107 3440 640 Meds/Results Medications: Active Medications Generic Name Dose Route Start Last Admin Trade Name Freq PRN Reason Stop Dose Admin Acetaminophen 650 mg 09/05/21 01:42 09/05/21 02:41 Acetaminophen 325 Mg Tablet PO 650 mg Q4H PRN Administration Pain Rated 1-3 Collagenase 1 applic 09/05/21 09:00 09/08/21 09:10 Collagenase Oint 30 Gm Tube TOPICAL 1 applic QAM ANKIT Administration Famotidine 20 mg 09/05/21 09:00 09/08/21 09:09 Famotidine 20 Mg Tablet PO 20 mg BID ANKIT Administration Folic Acid 1 mg 09/05/21 09:00 09/08/21 09:09 Folic Acid 1 Mg Tablet PO 1 mg DAILY ANKIT Administration Levofloxacin/Dextrose 750 mg in 150 mls @ 100 mls/hr 09/05/21 15:00 09/07/21
[2021-09-08] MEDS: KCL 20 MEQ/D5/0.9% SOD CHL 1,000 ML 75 ML IV CONT (11:53)
[2021-09-08 15:45] VITALS: BP 140/68; PULSE 72; RESP 14; TEMP 36.3; O2SAT 100
[2021-09-08] MEDS: ONDANSETRON INJ 4 MG/2 ML VIAL IV PUSH (19:32)
[2021-09-08 22:00] VITALS: BP 132/80; PULSE 68; RESP 14; TEMP 36.4; O2SAT 100
[2021-09-09] MEDS: LOPERAMIDE HCL 2 MG CAPSULE PO ×2 (01:06→21:27)
[2021-09-09] MEDS: ONDANSETRON INJ 4 MG/2 ML VIAL IV PUSH (01:06)
[2021-09-09] MEDS: metroNIDAZOLE 500 MG/ISO 100ML 500 MG/100 ML BAG 100 MG IVPB ×3 (01:06→17:04)
[2021-09-09] MEDS: KCL 20 MEQ/D5/0.9% SOD CHL 1,000 ML 75 ML IV CONT (03:14)
[2021-09-09 05:02] VITALS: BP 136/62; PULSE 69; RESP 16; TEMP 36.4; O2SAT 98
[2021-09-09 05:48] LABS: Basophils Percent Auto 0.2 % (0.2-1.2); Eosinophils Absolute Auto 0.1 K/mm3 (0-0.3); Eosinophils Percent Auto 0.9 % (0-4.4); Hematocrit 31.4 % (42.0-52.0); Hemoglobin 10.5 g/dL (14.0-18.0); Immature Granulocyte Absolute 0.09 K/mm3 (0.00-0.031); Immature Granulocyte Percent A 1.1 % (0-0.5); Lymphocytes Absolute Auto 0.89 K/mm3 (0.9-3.2); Lymphocytes Percent Auto 11.1 % (18.3-44.2); Mean Corpuscular HGB Conc 33.4 g/dl (32-36); Mean Corpuscular Hemoglobin 29.5 pg (26-34); Mean Corpuscular Volume 88.2 fl (80-100); Mean Platelet Volume 8.6 fl (7.4-10.4); Monocytes Absolute Auto 0.5 K/mm3 (0.1-0.6); Monocytes Percent Auto 6.7 % (2.6-8.5); Neutrophils Absolute Auto 6.4 K/mm3 (1.3-6.7); Platelet Count Result 242 k/mm3 (150-375); Red Blood Count 3.56 M/mm3 (4.6-6.20); Red Cell Distribution Width 14.4 % (11.5-14.5)
[2021-09-09 05:58] LABS: Alanine Aminotransferase 7 U/L (6-50); Alkaline Phosphatase 58 U/L (38-126); Anion Gap 3 mmol/L (8-16); Aspartate Amino Transferase 13 U/L (17-59); Bilirubin,Total < 0.1 mg/dL (0.2-1.3); Blood Urea Nitrogen 6 mg/dL (9-20); Calcium 7.2 mg/dL (8.4-10.2); Carbon Dioxide 20 mmol/L (22-30); Chloride 111 mmol/L (98-107); Estimated CRCL calculation 65 ml/min; Estimated Glomerular Filt Rate > 60; Glucose 103 mg/dL (65-110); Potassium 3.1 mmol/L (3.4-5.0); Sodium 134 mmol/L (137-145)
[2021-09-09 07:44] VITALS: BP 105/52; PULSE 68; RESP 16; TEMP 36.1; O2SAT 99
[2021-09-09] MEDS: FOLIC ACID 1 MG TABLET PO (09:07)
[2021-09-09] MEDS: MIDODRINE HCL 2.5 MG TABLET 7.5 MG PO ×4 (09:07→19:28)
[2021-09-09] MEDS: COLLAGENASE OINT 30 GM TUBE 1 APPLIC TOPICAL (09:07)
[2021-09-09] MEDS: FAMOTIDINE 20 MG TABLET PO ×2 (09:07→17:04)
[2021-09-09 09:16] VITALS: O2SAT 99
--- NOTE | 2021-09-09 11:38 | PM.IMPN ---
Progress Note: A&P Assessment and Plan (1) Pancolitis: Code(s): K51.00 - Ulcerative (chronic) pancolitis without complications Status: Acute Assessment and Plan: -noted on CT abd/pelv -no fevers or leukocytosis -continue Levaquin/Flagyl -diarrhea improving, move to low fiber -plan on outpatient GI follow up -struggling with appetite, want to re evaluate when acute infection subsides as family states the appetite has been an ongoing issue for quite some time (2) Acute metabolic encephalopathy: Code(s): G93.41 - Metabolic encephalopathy Status: Acute Assessment and Plan: -chart indicates hx of dementia -could be secondary to acute infection -ct head and UA unremarkable -more alert, family at bedside states he is at his baseline mental status (3) Acute GI bleeding: Code(s): K92.2 - Gastrointestinal hemorrhage, unspecified Status: Acute Assessment and Plan: -ER notes indicate he was having bright red blood in his stool -likely secondary to pancolitis -stool occult positive -monitor hgb, has been stable, today is 10.5 (4) Hyponatremia: Code(s): E87.1 - Hypo-osmolality and hyponatremia Status: Acute Assessment and Plan: -appears to be chronic, near his baseline -monitor BMP (5) Hypokalemia: Code(s): E87.6 - Hypokalemia Status: Acute Assessment and Plan: -mild -monitor and replace as indicated -daily BMP -continue pushing oral intake Subjective Date/time seen: 09/09/21 11:38 Interval history: 75 yo male w/ hx of [place], CVA, and dementia, admitted for pancolitis. Hx limited secondary to mental status. Some hx obtained from chart review. Pt A/Ox3 today but tired. Not eating much today. Denies abd pain/N/V/diarrhea. No cp/sob. Review of Systems Review of Systems: ROS unobtainable: Yes unobtainable due to mental status Exam Narrative: General: No acute distress, chronically ill appearing, elderly, thin stature, somnolent but arousable Eyes: PERRL, no scleral icterus HEENT: NCAT, external ears normal, MMM Respiratory: No respiratory distress, Lungs CTA bilaterally, no wheezing Cardiovascular: RRR, no murmur Abdominal: Soft, non tender, non distended, no rebound or guarding Musculoskeletal: Moves all 4 extremities, no edema Neurological: A/Ox3, no facial asymmetry, speech clear Skin: Warm, dry Psychiatric: Confused Objective Data Vital Signs Vital Signs: Vital Signs - 24 hr 09/08/21 15:45 09/08/21 22:00 09/09/21 05:02 Temperature 97.3 F L 97.6 F 97.6 F Pulse Rate 72 68 69 Respiratory Rate 14 14 16 Blood Pressure 140/68 132/80 136/62 Pulse Oximetry 100 100 98 Oxygen Delivery 09/09/21 07:44 09/09/21 09:16 Temperature 97 F L Pulse Rate 68 Respiratory Rate 16 Blood Pressure 105/52 L Pulse Oximetry 99 99 Oxygen Delivery Room Air Intake/Output Intake/Output: Intake & Output 09/06/21 09/07/21 09/08/21 09/09/21 23:59 23:59 23:59 23:59 Intake Total 990 4170 1530 1500 Output Total 450 400 Balance 540 4170 1530 1100 Meds/Results Medications: Active Medications Generic Name Dose Route Start Last Admin Trade Name Freq PRN Reason Stop Dose Admin Acetaminophen 650 mg 09/05/21 01:42 09/05/21 02:41 Acetaminophen 325 Mg Tablet PO 650 mg Q4H PRN Administration Pain Rated 1-3 Collagenase 1 applic 09/05/21 09:00 09/09/21 09:07 Collagenase Oint 30 Gm Tube TOPICAL 1 applic QAM ANKIT Administration Famotidine 20 mg 09/05/21 09:00 09/09/21 09:07 Famotidine 20 Mg Tablet PO 20 mg BID ANKIT Administration Folic Acid 1 mg 09/05/21 09:00 09/09/21 09:07 Folic Acid 1 Mg Tablet PO 1 mg DAILY ANKIT Administration Levofloxacin/Dextrose 750 mg in 150 mls @ 100 mls/hr 09/05/21 15:00 09/08/21 18:55 Levaquin 750 Mg/D5w 150 Ml IVPB Infused Q24H ANKIT Infusion Metronidazole 500 mg in 100 mls
[2021-09-09] MEDS: SODIUM CHLORIDE 0.9% IV 1,000 ML 75 ML IV CONT (12:10)
[2021-09-09 15:58] VITALS: BP 98/57; PULSE 80; RESP 16; TEMP 36.2; O2SAT 100
[2021-09-09] MEDS: POTASSIUM CHLORIDE 20 MEQ TABLET.ER 40 MEQ PO (17:04)
[2021-09-09 19:39] VITALS: BP 107/59; PULSE 60; RESP 16; TEMP 36.5; O2SAT 99
[2021-09-10] MEDS: metroNIDAZOLE 500 MG/ISO 100ML 500 MG/100 ML BAG 100 MG IVPB ×3 (01:11→17:10)
[2021-09-10] MEDS: SODIUM CHLORIDE 0.9% IV 1,000 ML 75 ML IV CONT ×2 (04:16→21:41)
[2021-09-10 05:49] LABS: Basophils Percent Auto 0.4 % (0.2-1.2); Eosinophils Absolute Auto 0.1 K/mm3 (0-0.3); Eosinophils Percent Auto 0.7 % (0-4.4); Hemoglobin 10.6 g/dL (14.0-18.0); Immature Granulocyte Percent A 1.2 % (0-0.5); Lymphocytes Absolute Auto 0.85 K/mm3 (0.9-3.2); Lymphocytes Percent Auto 10.3 % (18.3-44.2); Mean Corpuscular HGB Conc 33.1 g/dl (32-36); Mean Corpuscular Hemoglobin 29.7 pg (26-34); Mean Corpuscular Volume 89.6 fl (80-100); Mean Platelet Volume 8.4 fl (7.4-10.4); Monocytes Absolute Auto 0.5 K/mm3 (0.1-0.6); Monocytes Percent Auto 6.3 % (2.6-8.5); Neutrophils Absolute Auto 6.7 K/mm3 (1.3-6.7); Neutrophils Percent Auto 81.1 % (45.5-73.1); Platelet Count Result 194 k/mm3 (150-375); Red Blood Count 3.57 M/mm3 (4.6-6.20); Red Cell Distribution Width 14.6 % (11.5-14.5); White Blood Count 8.2 K/mm3 (4.5-10.0)
[2021-09-10 05:51] VITALS: BP 126/67; PULSE 100; RESP 12; TEMP 36.4; O2SAT 99
[2021-09-10 06:05] LABS: Alanine Aminotransferase 6 U/L (6-50); Alkaline Phosphatase 58 U/L (38-126); Anion Gap 4 mmol/L (8-16); Aspartate Amino Transferase 16 U/L (17-59); Bilirubin,Total 0.2 mg/dL (0.2-1.3); Blood Urea Nitrogen 6 mg/dL (9-20); Calcium 7.1 mg/dL (8.4-10.2); Carbon Dioxide 20 mmol/L (22-30); Chloride 112 mmol/L (98-107); Estimated CRCL calculation 58 ml/min; Estimated Glomerular Filt Rate > 60; Glucose 79 mg/dL (65-110); Potassium 3.4 mmol/L (3.4-5.0); Sodium 136 mmol/L (137-145)
[2021-09-10 07:34] VITALS: BP 109/76; PULSE 65; RESP 14; TEMP 36.3; O2SAT 99
[2021-09-10] MEDS: MIDODRINE HCL 2.5 MG TABLET 7.5 MG PO ×4 (09:04→21:35)
[2021-09-10] MEDS: FOLIC ACID 1 MG TABLET PO (09:05)
[2021-09-10] MEDS: FAMOTIDINE 20 MG TABLET PO ×2 (09:05→17:10)
[2021-09-10] MEDS: POTASSIUM CHLORIDE 20 MEQ TABLET.ER 40 MEQ PO ×2 (09:05→17:10)
[2021-09-10] MEDS: COLLAGENASE OINT 30 GM TUBE 1 APPLIC TOPICAL (09:05)
[2021-09-10] MEDS: LOPERAMIDE HCL 2 MG CAPSULE PO (11:32)
--- NOTE | 2021-09-10 13:31 | PM.IMPN ---
Progress Note: A&P Assessment and Plan (1) Pancolitis: Code(s): K51.00 - Ulcerative (chronic) pancolitis without complications Status: Acute Assessment and Plan: -noted on CT abd/pelv -no fevers or leukocytosis -continue Levaquin/Flagyl -diarrhea improving, move to low fiber -stool studies pending -plan on outpatient GI follow up -struggling with appetite/failure to thrive, started Megace today (2) Acute metabolic encephalopathy: Code(s): G93.41 - Metabolic encephalopathy Status: Acute Assessment and Plan: -chart indicates hx of dementia -could be secondary to acute infection -ct head and UA unremarkable -slowly becoming more alert since starting abx, family at bedside states he is at his baseline mental status (3) Acute GI bleeding: Code(s): K92.2 - Gastrointestinal hemorrhage, unspecified Status: Acute Assessment and Plan: -ER notes indicate he was having bright red blood in his stool -likely secondary to pancolitis -stool occult positive -monitor hgb, has been stable, today is 10.6 (4) Hyponatremia: Code(s): E87.1 - Hypo-osmolality and hyponatremia Status: Acute Assessment and Plan: -appears to be chronic, near his baseline -monitor BMP (5) Hypokalemia: Code(s): E87.6 - Hypokalemia Status: Acute Assessment and Plan: -mild -monitor and replace as indicated -daily BMP -continue pushing oral intake Subjective Date/time seen: 09/10/21 13:31 Interval history: 75 yo male w/ hx of [place], CVA, and dementia, admitted for pancolitis. Hx limited secondary to mental status. Some hx obtained from chart review. Pt A/Ox3 today but weak and tired. Has no appetite. Has full lunch tray sitting by him. Has hardly been eating. Denies abd pain, nausea. Review of Systems Review of Systems: All systems reviewed & are unremarkable except as noted in HPI and below Exam Narrative: General: No acute distress, chronically ill appearing, elderly, thin stature, somnolent but arousable Eyes: PERRL, no scleral icterus HEENT: NCAT, external ears normal, MMM Respiratory: No respiratory distress, Lungs CTA bilaterally, no wheezing Cardiovascular: RRR, no murmur Abdominal: Soft, non tender, non distended, no rebound or guarding Musculoskeletal: Moves all 4 extremities, no edema Neurological: A/Ox3, no facial asymmetry, speech clear Skin: Warm, dry Psychiatric: Confused Objective Data Vital Signs Vital Signs: Vital Signs - 24 hr 09/09/21 15:58 09/09/21 19:39 09/10/21 05:51 Temperature 97.1 F L 97.7 F 97.6 F Pulse Rate 80 60 100 Respiratory Rate 16 16 12 Blood Pressure 98/57 L 107/59 L 126/67 Pulse Oximetry 100 99 99 Oxygen Delivery 09/10/21 07:34 09/10/21 09:14 Temperature 97.3 F L Pulse Rate 65 Respiratory Rate 14 Blood Pressure 109/76 Pulse Oximetry 99 Oxygen Delivery Room Air Intake/Output Intake/Output: Intake & Output 09/07/21 09/08/21 09/09/21 09/10/21 23:59 23:59 23:59 23:59 Intake Total 4170 1530 2890 1450 Output Total 400 Balance 4170 1530 2490 1450 Meds/Results Medications: Active Medications Generic Name Dose Route Start Last Admin Trade Name Freq PRN Reason Stop Dose Admin Acetaminophen 650 mg 09/05/21 01:42 09/05/21 02:41 Acetaminophen 325 Mg Tablet PO 650 mg Q4H PRN Administration Pain Rated 1-3 Collagenase 1 applic 09/05/21 09:00 09/10/21 09:05 Collagenase Oint 30 Gm Tube TOPICAL 1 applic QAM ANKIT Administration Famotidine 20 mg 09/05/21 09:00 09/10/21 09:05 Famotidine 20 Mg Tablet PO 20 mg BID ANKIT Administration Folic Acid 1 mg 09/05/21 09:00 09/10/21 09:05 Folic Acid 1 Mg Tablet PO 1 mg DAILY ANKIT Administration Levofloxacin/Dextrose 750 mg in 150 mls @ 100 mls/hr 09/05/21 15:00 09/09/21 16:45 Levaquin 750 Mg/D5w 150 Ml IVPB Infused Q24H ANKIT Infusion
[2021-09-10 15:58] VITALS: BP 127/63; PULSE 69; RESP 16; TEMP 36.3; O2SAT 100
[2021-09-10] MEDS: MEGESTROL ACETATE (*CHEMO) 40 MG TABLET PO (17:10)
[2021-09-10 21:07] VITALS: BP 127/75; PULSE 72; RESP 14; TEMP 36.5; O2SAT 100
[2021-09-11] MEDS: metroNIDAZOLE 500 MG/ISO 100ML 500 MG/100 ML BAG 100 MG IVPB ×3 (02:36→18:30)
[2021-09-11 04:54] VITALS: BP 114/64; PULSE 79; RESP 16; TEMP 36.5; O2SAT 100
[2021-09-11] MEDS: MIDODRINE HCL 2.5 MG TABLET 7.5 MG PO ×4 (09:17→20:46)
[2021-09-11] MEDS: POTASSIUM CHLORIDE 20 MEQ TABLET.ER 40 MEQ PO ×2 (09:17→16:55)
[2021-09-11] MEDS: FAMOTIDINE 20 MG TABLET PO ×2 (09:18→16:54)
[2021-09-11] MEDS: MEGESTROL ACETATE (*CHEMO) 40 MG TABLET PO ×3 (09:18→16:55)
[2021-09-11] MEDS: FOLIC ACID 1 MG TABLET PO (09:18)
[2021-09-11] MEDS: COLLAGENASE OINT 30 GM TUBE 1 APPLIC TOPICAL (09:19)
--- NOTE | 2021-09-11 11:48 | PM.IMPN ---
Progress Note: A&P Assessment and Plan (1) Pancolitis: Code(s): K51.00 - Ulcerative (chronic) pancolitis without complications Status: Acute Assessment and Plan: -noted on CT abd/pelv -no further fevers -continue Levaquin/Flagyl -diarrhea continues but is less -low Fiber diet -stool studies pending -plan on outpatient GI follow up -struggling with appetite/failure to thrive, started Megace today - Dietitian has consulted, concern for Failure To Thrive. (2) Acute metabolic encephalopathy: Code(s): G93.41 - Metabolic encephalopathy Status: Acute Assessment and Plan: -chart indicates hx of dementia -could be secondary to acute infection -ct head and UA unremarkable - Pt. is alert and oriented x3, but is very somnolent. (3) Acute GI bleeding: Code(s): K92.2 - Gastrointestinal hemorrhage, unspecified Status: Acute Assessment and Plan: -ER notes indicate he was having bright red blood in his stool -likely secondary to pancolitis -stool occult positive -Hgb level is flat and not declining. (4) Hyponatremia: Code(s): E87.1 - Hypo-osmolality and hyponatremia Status: Acute Assessment and Plan: -appears to be chronic, near his baseline -monitor BMP (5) Hypokalemia: Code(s): E87.6 - Hypokalemia Status: Resolved Assessment and Plan: -mild -monitor and replace as indicated -daily BMP -continue pushing oral intake - 09/11/21: Resolved Time Spent With Patient Time: 20 minutes Subjective Date/time seen: 09/11/21 0920 This pt. was examined at the bedside today in interval assessment. He is complaining of feeling cold and tired. He has remained afebrile, but intake has been poor despite the fact that it has increased. He has no pain today and has no dyspnea. BS are present in all quads and there is no distention. He appears somnolent and reports that he wants to sleep. He remains on Levaquin, Flagyl and NS infusion. Review of Systems Review of Systems: All systems reviewed & are unremarkable except as noted in HPI and below Exam Narrative: General: No acute distress, chronically ill appearing, elderly, thin stature, somnolent but arousable Eyes: PERRL, no scleral icterus HEENT: external ears normal, MMM Respiratory: No respiratory distress, Lungs CTA bilaterally, no wheezing Cardiovascular: RRR, no murmur Abdominal: Soft, non tender, non distended, no rebound or guarding Musculoskeletal: Moves all 4 extremities, no edema Neurological: A/Ox3, non-focal exam. Skin: Warm, dry Psychiatric: flat affect. Objective Data Vital Signs Vital Signs: Vital Signs - 24 hr 09/10/21 15:58 09/10/21 21:07 09/11/21 04:54 Temperature 97.4 F L 97.7 F 97.7 F Pulse Rate 69 72 79 Respiratory Rate 16 14 16 Blood Pressure 127/63 127/75 114/64 Pulse Oximetry 100 100 100 Intake/Output Intake/Output: Intake & Output 09/08/21 09/09/21 09/10/21 09/11/21 23:59 23:59 23:59 23:59 Intake Total 1530 2890 3100 570 Output Total 400 450 Balance 1530 2490 2650 570 Meds/Results Medications: Active Medications Generic Name Dose Route Start Last Admin Trade Name Freq PRN Reason Stop Dose Admin Acetaminophen 650 mg 09/05/21 01:42 09/05/21 02:41 Acetaminophen 325 Mg Tablet PO 650 mg Q4H PRN Administration Pain Rated 1-3 Collagenase 1 applic 09/05/21 09:00 09/11/21 09:19 Collagenase Oint 30 Gm Tube TOPICAL 1 applic QAM ANKIT Administration Famotidine 20 mg 09/05/21 09:00 09/11/21 09:18 Famotidine 20 Mg Tablet PO 20 mg BID ANKIT Administration Folic Acid 1 mg 09/05/21 09:00 09/11/21 09:18 Folic Acid 1 Mg Tablet PO 1 mg DAILY ANKIT Administration Levofloxacin/Dextrose 750 mg in 150 mls @ 100 mls/hr 09/05/21 15:00 09/10/21 15:59 Levaquin 750 Mg/D5w 150 Ml IVPB Infused Q24H ANKIT Infusion Metronidazole 500 mg in 100 mls @ 100 mls/hr 09/05/21 02:00
[2021-09-11] MEDS: SODIUM CHLORIDE 0.9% IV 1,000 ML 75 ML IV CONT (13:37)
[2021-09-11 15:04] VITALS: BP 118/61; PULSE 63; RESP 16; TEMP 35.8; O2SAT 100
[2021-09-11 20:02] VITALS: BP 108/66; PULSE 69; RESP 16; TEMP 36.6; O2SAT 100
[2021-09-11] MEDS: ONDANSETRON INJ 4 MG/2 ML VIAL IV PUSH (20:46)
[2021-09-11 21:21] LABS: Basophils Percent Auto 0.5 % (0.2-1.2); Eosinophils Percent Auto 0.4 % (0-4.4); Hematocrit 36.1 % (42.0-52.0); Hemoglobin 11.7 g/dL (14.0-18.0); Immature Granulocyte Absolute 0.07 K/mm3 (0.00-0.031); Immature Granulocyte Percent A 0.8 % (0-0.5); Lymphocytes Absolute Auto 1.14 K/mm3 (0.9-3.2); Lymphocytes Percent Auto 13.8 % (18.3-44.2); Mean Corpuscular HGB Conc 32.4 g/dl (32-36); Mean Corpuscular Hemoglobin 29.3 pg (26-34); Mean Corpuscular Volume 90.3 fl (80-100); Mean Platelet Volume 8.3 fl (7.4-10.4); Monocytes Absolute Auto 0.5 K/mm3 (0.1-0.6); Monocytes Percent Auto 6.4 % (2.6-8.5); Neutrophils Absolute Auto 6.4 K/mm3 (1.3-6.7); Neutrophils Percent Auto 78.1 % (45.5-73.1); Platelet Count Result 236 k/mm3 (150-375); Red Cell Distribution Width 14.8 % (11.5-14.5); White Blood Count 8.2 K/mm3 (4.5-10.0)
[2021-09-11 21:35] LABS: Anion Gap 2 mmol/L (8-16); Blood Urea Nitrogen 7 mg/dL (9-20); Calcium 7.3 mg/dL (8.4-10.2); Carbon Dioxide 20 mmol/L (22-30); Chloride 110 mmol/L (98-107); Estimated CRCL calculation 65 ml/min; Estimated Glomerular Filt Rate > 60; Glucose 77 mg/dL (65-110); Potassium 4.3 mmol/L (3.4-5.0); Sodium 132 mmol/L (137-145)
[2021-09-12] MEDS: metroNIDAZOLE 500 MG/ISO 100ML 500 MG/100 ML BAG 100 MG IVPB ×3 (02:24→18:29)
[2021-09-12 03:50] VITALS: BP 116/60; PULSE 65; RESP 17; TEMP 36.6; O2SAT 100
[2021-09-12] MEDS: SODIUM CHLORIDE 0.9% IV 1,000 ML 75 ML IV CONT ×2 (06:28→23:38)
[2021-09-12 07:27] LABS: Basophils Percent Auto 0.3 % (0.2-1.2); Eosinophils Percent Auto 0.3 % (0-4.4); Hemoglobin 10.1 g/dL (14.0-18.0); Immature Granulocyte Absolute 0.05 K/mm3 (0.00-0.031); Immature Granulocyte Percent A 0.7 % (0-0.5); Lymphocytes Absolute Auto 1.04 K/mm3 (0.9-3.2); Lymphocytes Percent Auto 15.2 % (18.3-44.2); Mean Corpuscular HGB Conc 32.6 g/dl (32-36); Mean Corpuscular Hemoglobin 28.9 pg (26-34); Mean Corpuscular Volume 88.8 fl (80-100); Mean Platelet Volume 8.6 fl (7.4-10.4); Monocytes Absolute Auto 0.4 K/mm3 (0.1-0.6); Monocytes Percent Auto 6.1 % (2.6-8.5); Neutrophils Absolute Auto 5.3 K/mm3 (1.3-6.7); Neutrophils Percent Auto 77.4 % (45.5-73.1); Platelet Count Result 196 k/mm3 (150-375); Red Blood Count 3.49 M/mm3 (4.6-6.20); Red Cell Distribution Width 14.9 % (11.5-14.5); White Blood Count 6.9 K/mm3 (4.5-10.0)
[2021-09-12 07:41] LABS: Albumin Level 1.9 g/dL (3.5-5.1); Alkaline Phosphatase 61 U/L (38-126); Anion Gap 3 mmol/L (8-16); Aspartate Amino Transferase 15 U/L (17-59); Bilirubin,Total 0.2 mg/dL (0.2-1.3); Blood Urea Nitrogen 6 mg/dL (9-20); Calcium 6.9 mg/dL (8.4-10.2); Carbon Dioxide 18 mmol/L (22-30); Chloride 110 mmol/L (98-107); Estimated CRCL calculation 73 ml/min; Estimated Glomerular Filt Rate > 60; Glucose 75 mg/dL (65-110); Magnesium 1.6 mg/dL (1.6-2.3); Potassium 3.9 mmol/L (3.4-5.0); Sodium 131 mmol/L (137-145)
[2021-09-12 08:05] LABS: Alanine Aminotransferase < 6 U/L (6-50)
[2021-09-12] MEDS: MIDODRINE HCL 2.5 MG TABLET 7.5 MG PO ×4 (09:11→20:17)
[2021-09-12] MEDS: FAMOTIDINE 20 MG TABLET PO ×2 (09:12→16:46)
[2021-09-12] MEDS: MEGESTROL ACETATE (*CHEMO) 40 MG TABLET PO ×3 (09:12→16:45)
[2021-09-12] MEDS: FOLIC ACID 1 MG TABLET PO (09:12)
[2021-09-12] MEDS: POTASSIUM CHLORIDE 20 MEQ TABLET.ER 40 MEQ PO ×2 (09:12→16:46)
[2021-09-12] MEDS: COLLAGENASE OINT 30 GM TUBE 1 APPLIC TOPICAL (09:18)
[2021-09-12] MEDS: MAGNESIUM SULF 2 GM/WATER 50ML 2 GM/50 ML BAG IVPB (10:32)
--- NOTE | 2021-09-12 11:58 | PCNFU ---
Nutrition Follow-Up Complete: Suboptimal po intake related to reduced appetite as evidenced by poor intake and pt report. Goal: Meet nutritional needs. Pt is slowly progressing towards goal. Continue with same goal Pt current nutrition is now low fiber diet, Ensure compact BID in place. Nutrition recommendation: Modify diet consistency to soft and bite sized level 6 Last recorded weight is 65.9 kg - no new wt. Recommend to reweigh Bowel Motility: + BM 09/12 Labs Reviewed: hgb:10.1, HCT:31, Alb:1.9, NA:131, BUN:6 Meds Noted: pt started on megace for appetite stimulant. Skin:WNL Additional Notes: Pt diet upgraded to regular, low fiber. Intake remains poor, sips on ensure compact but noted remains on bedside table hardly touched. Megace started for appetite. Encouraged intake of meals and supplements. Family states may benefit from mechanical soft diet consistency. Recommend to change to level 6, soft and bite sized for better tolerance. Monitor intake, diet order, tolerance, wt, labs. Follow up in 5 days.
--- NOTE | 2021-09-12 14:35 | PM.IMPN ---
Progress Note: A&P Assessment and Plan (1) Pancolitis: Code(s): K51.00 - Ulcerative (chronic) pancolitis without complications Status: Acute Assessment and Plan: Noted on CT abd/pelv -completed 5 days of Levaquin and Flagyl. Will discontinue at this time. Appreciate ID PharmD assistance. -diarrhea resolved -continue low-fiber diet -stool cultures negative -will need outpatient GI follow-up (2) Acute GI bleeding: Code(s): K92.2 - Gastrointestinal hemorrhage, unspecified Status: Acute Assessment and Plan: ER notes indicate he was having bright red blood in his stool -likely secondary to pancolitis -stool occult positive -Hgb level remains stable -No evidence of blood in stool today -As above, will need outpatient GI follow-up. Will proceed with inpatient consultation if bleeding is persistent (3) Acute metabolic encephalopathy: Code(s): G93.41 - Metabolic encephalopathy Status: Acute Assessment and Plan: Etiology unclear and also baseline is unclear -Patient A&Ox3 during my evaluation -CT head and UA unremarkable (4) Hyponatremia: Code(s): E87.1 - Hypo-osmolality and hyponatremia Status: Acute Assessment and Plan: -appears to be chronic, near his baseline - 131 today - Monitor BMP (5) Hypokalemia: Code(s): E87.6 - Hypokalemia Status: Resolved Assessment and Plan: Resolved. - 3.9 today - Montir BMP (6) Protein calorie malnutrition: Code(s): E46 - Unspecified protein-calorie malnutrition Status: Acute Assessment and Plan: Patient poor appetite and extremity decreased p.o. intake -continue Megace -appreciate dietitian evaluation -continue dietary supplements Plan PT/OT carlos appreciated Subjective Date/time seen: 09/12/21 14:35 Interval history: Date of service: 09/12/2021 Philip Hernández is a 75-year-old male with a history of CVA and myocardial infarction who is seen in follow-up for pancolitis. He states that he feels tired today. He states that he slept all through the night last night but remains tired today. He is unsure why. He has not been eating. States he did not eat any of his breakfast. He states he is no appetite for lunch but I did encourage him to try something. Asked him what he likes and he did say he enjoys chocolate pudding so would like to try that. He denies abdominal pain, nausea, vomiting, fever, chills. No shortness breath, cough, chest pain. He cannot recall his last bowel movement. Unsure if he had blood in his stool. RN notes that last night he had a trace amount of dark colored stool but no bowel movements today. Review of Systems Review of Systems: All systems reviewed & are unremarkable except as noted in HPI and below Exam Narrative: General: Thin, well-appearing 75-year-old male, sitting up in bed, comfortable, NARD Neuro: awake, alert and oriented x4, speech clear, no focal neuro deficits noted HEENMT: normocephalic, atraumatic, EOMI, sclerae anicteric Respiratory: clear to auscultation bilaterally, nonlabored breathing Cardio: regular rate, regular rhythm with S1-S2 Abdomen: nondistended, normoactive bowel sounds, soft, nontender to palpation Extremities: no edema, erythema, or tenderness to palpation, DP pulses 2+ bilaterally Skin: no rashes or lesions, warm and dry Psych: appropriate mood, flat affect, judgment and insight intact Objective Data Vital Signs Vital Signs: Vital Signs - 24 hr 09/11/21 15:04 09/11/21 20:02 09/12/21 03:50 Temperature 96.5 F L 97.8 F 97.8 F Pulse Rate 63 69 65 Respiratory Rate 16 16 17 Blood Pressure 118/61 108/66 116/60 Pulse Oximetry 100 100 100 Oxygen Delivery 09/12/21 09:22 Temperature Pulse Rate Respiratory Rate Blood Pressure Pulse Oximetry Oxygen Delivery Room Air Intake/Output Intake/Output: Intake & Output 09/09/21 09/10/21 09/11/21 09/12/21 23
[2021-09-12 21:43] VITALS: BP 132/70; PULSE 70; RESP 14; TEMP 36.4; O2SAT 100
[2021-09-12] MEDS: ACETAMINOPHEN 325 MG TABLET 650 MG PO (23:36)
[2021-09-13] MEDS: metroNIDAZOLE 500 MG/ISO 100ML 500 MG/100 ML BAG 100 MG IVPB (01:46)
[2021-09-13 06:13] LABS: Hematocrit 29.4 % (42.0-52.0); Hemoglobin 9.8 g/dL (14.0-18.0); Mean Corpuscular HGB Conc 33.3 g/dl (32-36); Mean Corpuscular Hemoglobin 29.3 pg (26-34); Mean Corpuscular Volume 87.8 fl (80-100); Mean Platelet Volume 8.4 fl (7.4-10.4); Platelet Count Result 190 k/mm3 (150-375); Red Blood Count 3.35 M/mm3 (4.6-6.20); Red Cell Distribution Width 15.1 % (11.5-14.5); White Blood Count 7.8 K/mm3 (4.5-10.0)
[2021-09-13 06:37] LABS: Anion Gap 2 mmol/L (8-16); Blood Urea Nitrogen 5 mg/dL (9-20); Calcium 6.9 mg/dL (8.4-10.2); Carbon Dioxide 19 mmol/L (22-30); Chloride 111 mmol/L (98-107); Estimated CRCL calculation 65 ml/min; Estimated Glomerular Filt Rate > 60; Glucose 72 mg/dL (65-110); Magnesium 1.9 mg/dL (1.6-2.3); Potassium 4.4 mmol/L (3.4-5.0); Sodium 132 mmol/L (137-145)
[2021-09-13 07:18] VITALS: BP 91/58; PULSE 94; RESP 16; TEMP 36.6; O2SAT 100
--- NOTE | 2021-09-13 08:48 | PCOTNOTE ---
Attempted OT evaluation, patient declines and reports I just want to rest . Will follow, RN aware.
[2021-09-13] MEDS: POTASSIUM CHLORIDE 20 MEQ TABLET.ER 40 MEQ PO ×2 (08:58→17:03)
[2021-09-13] MEDS: MEGESTROL ACETATE (*CHEMO) 40 MG TABLET PO ×3 (08:58→17:04)
[2021-09-13] MEDS: FAMOTIDINE 20 MG TABLET PO ×2 (08:59→17:04)
[2021-09-13] MEDS: COLLAGENASE OINT 30 GM TUBE 1 APPLIC TOPICAL (08:59)
[2021-09-13] MEDS: MIDODRINE HCL 2.5 MG TABLET 7.5 MG PO ×4 (08:59→20:01)
[2021-09-13] MEDS: SODIUM CHLORIDE 0.9% IV 1,000 ML 75 ML IV CONT ×2 (08:59→14:47)
[2021-09-13] MEDS: FOLIC ACID 1 MG TABLET PO (08:59)
[2021-09-13 14:00] VITALS: BP 139/63; PULSE 65; RESP 16; TEMP 36.6; O2SAT 100
--- NOTE | 2021-09-13 16:35 | PM.IMPN ---
Progress Note: A&P Assessment and Plan (1) Pancolitis: Code(s): K51.00 - Ulcerative (chronic) pancolitis without complications Status: Acute Assessment and Plan: Noted on CT abd/pelv -completed 5 days of Levaquin and Flagyl. Antibiotics discontinued on 09/12. Appreciate ID PharmD recommendations. -diarrhea improving, 1 loose stool today -continue low-fiber diet -stool cultures negative -will need outpatient GI follow-up (2) Acute GI bleeding: Code(s): K92.2 - Gastrointestinal hemorrhage, unspecified Status: Acute Assessment and Plan: ER notes indicate he was having bright red blood in his stool -likely secondary to pancolitis -stool occult positive -slight decline in H&H to 9.8 today. May be dilutional. No further episodes of bleeding. -As above, will need outpatient GI follow-up. Will proceed with inpatient consultation if bleeding is persistent (3) Acute metabolic encephalopathy: Code(s): G93.41 - Metabolic encephalopathy Status: Acute Assessment and Plan: Etiology unclear and also baseline is unclear -Patient A&Ox3 during my evaluation -CT head and UA unremarkable -Daughter reports recent dementia diagnosis. Doubt this is an acute issue. (4) Hyponatremia: Code(s): E87.1 - Hypo-osmolality and hyponatremia Status: Acute Assessment and Plan: Appears to be chronic, near his baseline - 132 today - Monitor BMP (5) Hypokalemia: Code(s): E87.6 - Hypokalemia Status: Resolved Assessment and Plan: Resolved. - 4.4 today - Monitor BMP (6) Protein calorie malnutrition: Code(s): E46 - Unspecified protein-calorie malnutrition Status: Acute Assessment and Plan: Patient with poor appetite and extremity decreased p.o. intake -continue Megace -appreciate dietitian evaluation -continue dietary supplements (7) Dementia: Code(s): F03.90 - Unspecified dementia without behavioral disturbance Status: Acute Assessment and Plan: Daughter reports patient was diagnosed with dementia and may -Not currently on any medications Plan PT/OT carlos appreciated Subjective Date/time seen: 09/13/21 16:35 Interval history: Date of service: 09/12/2021 Philip Hernández is a 75-year-old male with a history of CVA and myocardial infarction who is seen in follow-up for pancolitis. This is his 3rd hospitalization for pancolitis over the past 6 months. He continues to state he is tired today. He declined to participate in PT/OT. He states he did not eat anything today. Patient unable/unwilling to provide further history. RN reports 3 loose stools overnight. One bowel movement this morning. Discussed with patient's daughter/POA via phone today for 11 minutes to provide updates and answer questions. Daughter, Heather, reports she has been talking with her dad about the need for him to eat and participate in therapy. Discussed options if he is not able to maintain nutritional support by mouth including feeding tube versus hospice care. Heather reports that she and her [id number] have discussed hospice in the past. She may want to consider informational meeting but would like to talk this over with her family. She does not feel that her father would want to have a feeding tube. She believes that much of his withdrawn behavior is due to the fact that he knows he will have to go back to a [facility] and cannot return home with his due to his level of care. Review of Systems Review of Systems: ROS unobtainable: Yes unobtainable due to mental status Exam Narrative: General: Thin, well-appearing 75-year-old male, supine in bed, comfortable, NARD Neuro: awake, alert and oriented x4, speech clear, no focal neuro deficits noted HEENMT: normocephalic, atraumatic, EOMI, sclerae anicteric Respiratory: clear to auscultation bilaterally, nonlabored breathing Cardio: regular rate, re
[2021-09-13 20:18] VITALS: BP 125/66; PULSE 67; RESP 18; TEMP 36.4; O2SAT 100
[2021-09-14] VITALS: BP 134/60; PULSE 69; RESP 18; TEMP 36.5; O2SAT 100
[2021-09-14 04:16] VITALS: BP 122/58; PULSE 70; RESP 16; TEMP 36.6; O2SAT 100
[2021-09-14] MEDS: MIDODRINE HCL 2.5 MG TABLET 7.5 MG PO ×4 (08:24→20:12)
[2021-09-14] MEDS: MEGESTROL ACETATE (*CHEMO) 40 MG TABLET PO ×3 (08:24→16:34)
[2021-09-14] MEDS: POTASSIUM CHLORIDE 20 MEQ TABLET.ER 40 MEQ PO ×2 (08:24→16:34)
[2021-09-14] MEDS: COLLAGENASE OINT 30 GM TUBE 1 APPLIC TOPICAL (08:24)
[2021-09-14] MEDS: FAMOTIDINE 20 MG TABLET PO (08:24)
[2021-09-14] MEDS: FOLIC ACID 1 MG TABLET PO (08:24)
[2021-09-14] MEDS: SODIUM CHLORIDE 0.9% IV 1,000 ML 75 ML IV CONT (08:31)
[2021-09-14 09:35] LABS: Hematocrit 32.7 % (42.0-52.0); Hemoglobin 10.7 g/dL (14.0-18.0)
[2021-09-14 09:48] LABS: Anion Gap 3 mmol/L (8-16); Blood Urea Nitrogen 5 mg/dL (9-20); Calcium 7.2 mg/dL (8.4-10.2); Carbon Dioxide 20 mmol/L (22-30); Chloride 108 mmol/L (98-107); Estimated CRCL calculation 65 ml/min; Estimated Glomerular Filt Rate > 60; Glucose 104 mg/dL (65-110); Potassium 4.1 mmol/L (3.4-5.0); Sodium 131 mmol/L (137-145)
[2021-09-14 12:15] VITALS: BP 140/68; PULSE 70; RESP 16; TEMP 36.5; O2SAT 100
--- NOTE | 2021-09-14 15:53 | PM.IMPN ---
Progress Note: A&P Assessment and Plan (1) Pancolitis: Code(s): K51.00 - Ulcerative (chronic) pancolitis without complications Status: Acute Assessment and Plan: Noted on CT abd/pelv -completed 5 days of Levaquin and Flagyl. Antibiotics discontinued on 09/12 per ID PharmD recommendations. Stool cultures negative. -diarrhea persistent today with approximately 3 episodes of loose stool -continue low-fiber diet -persistent pancolitis and weight loss concerning for inflammatory bowel disease versus malignancy -consult to GI. Recommendations appreciated. (2) Acute GI bleeding: Code(s): K92.2 - Gastrointestinal hemorrhage, unspecified Status: Acute Assessment and Plan: ER notes indicate he was having bright red blood in his stool -likely secondary to pancolitis -stool occult blood test positive -H&H remaining stable. No further episodes of bleeding. -appreciate GI consultation (3) Acute metabolic encephalopathy: Code(s): G93.41 - Metabolic encephalopathy Status: Ruled-out Assessment and Plan: Ruled out. -Patient A&Ox3 during my evaluation -CT head and UA unremarkable -Daughter reports recent dementia diagnosis. Likely any confusion is related to dementia rather than acute encephalopathy (4) Hyponatremia: Code(s): E87.1 - Hypo-osmolality and hyponatremia Status: Acute Assessment and Plan: Appears to be chronic, near his baseline - 131 today - Monitor BMP (5) Hypokalemia: Code(s): E87.6 - Hypokalemia Status: Resolved Assessment and Plan: Resolved. - 4.1 today - Monitor BMP (6) Protein calorie malnutrition: Code(s): E46 - Unspecified protein-calorie malnutrition Status: Acute Assessment and Plan: Patient with poor appetite and extremity decreased p.o. intake -continue Megace -appreciate dietitian evaluation -continue dietary supplements (7) Dementia: Code(s): F03.90 - Unspecified dementia without behavioral disturbance Status: Acute Assessment and Plan: Daughter reports patient was diagnosed with dementia in july -Not currently on any medications Plan PT/OT eval appreciated Subjective Date/time seen: 09/14/21 15:53 Interval history: Date of service: 09/12/2021 Philip Hernández is a 75-year-old male with a history of CVA and CAD who is seen in follow-up for pancolitis. This is his 3rd hospitalization for pancolitis over the past 6 months. His sister is present with him at the bedside today. Is more awake today and is able to participate more in conversation. He states he has not eaten anything today. He states he simply does does not feel like eating. Long discussion regarding importance of maintaining adequate nutrition. He states he has issues using the fork and knife so we will make sure his diet consists of foods he can eat with his hands and he will have assistance with cutting his meals. He states he will try to improve his oral intake. He continues to feel fatigued. He denies shortness breath, cough, chest pain, nausea, vomiting, fever, chills. He estimates that he has lost about 40 lb in the past 6 months. Review of Systems Review of Systems: All systems reviewed & are unremarkable except as noted in HPI and below Exam Narrative: General: Thin 75-year-old male, supine in bed, comfortable, NARD Neuro: awake, alert and oriented x4, speech clear, no focal neuro deficits noted HEENMT: normocephalic, atraumatic, EOMI, sclerae anicteric Respiratory: clear to auscultation bilaterally, nonlabored breathing Cardio: regular rate, regular rhythm with S1-S2 Abdomen: nondistended, normoactive bowel sounds, soft, nontender to palpation Extremities: no edema, erythema, or tenderness to palpation, DP pulses 2+ bilaterally Skin: no rashes or lesions, warm and dry Psych: flat affect, judgment and insight fair Objective Data Vital Signs Vital Signs
--- NOTE | 2021-09-14 16:09 | WPDGICN ---
Assessment and Plan Assessment and plan (1) Pancolitis: Code(s): K51.00 - Ulcerative (chronic) pancolitis without complications Status: Acute Assessment and Plan: given the fact that he has apparently had evidence of beverly colitis for at least 6 months, this suggests that he has inflammatory bowel disease, most likely ulcerative colitis. Colonoscopy would be very helpful (2) Acute GI bleeding: Code(s): K92.2 - Gastrointestinal hemorrhage, unspecified Status: Acute Assessment and Plan: no further bleeding. His hemoglobin today is higher than yesterday. It is now 10.7 and 32.7 (3) Protein calorie malnutrition: Code(s): E46 - Unspecified protein-calorie malnutrition Status: Acute Assessment and Plan: he states that he has lost 40 lb. His albumin is 1.9. He also has lymphopenia supporting protein calorie malnutrition Plan we will need to see what his Healthcare power of employee benefits attorney wishes to do. Colonoscopy would definitely be helpful in terms of identifying what is wrong with this colon GI Consult Note Consult date/time: 09/14/21 16:09 HPI: Philip Hernández is a 75 year old male with past medical history significant for stroke, myocardial infarction.? Patient presents to the emergency room for evaluation of bright red blood per rectum according to patient he has been his usual state of health he denies any fevers, rigors, chills, abdominal pain, nausea, vomiting, diarrhea, no weight loss. preliminary workup was significant for CT abdomen and pelvis with findings typical for pancolitis, CBC showed a hemoglobin of 10 hematocrit of 33?. He was found to have pancolitis on CT ( Personally reviewed) scan in has been treated with antibiotics for 5 days, Levaquin and Flagyl. These were given intravenously, not orally, he is unable to give an accurate history. The records indicate that he has had 3 hospitalizations for pancolitis in the last 6 months but I do not see that he has had a previous admission here for that. At any rate, does not appear that he has had a colonoscopy. Is very possible that he has ulcerative colitis. Review of Systems Review of Systems: All systems reviewed & are unremarkable except as noted in HPI and below PMFSH Past Medical History Medical History (Updated 09/14/21 @ 16:04 by Mary Tomlinson PA-C) CVA (cerebral vascular accident) Myocardial infarction Social History Social History (Updated 02/22/21 @ 12:34 by Nya Landrum MD) Smoking status: Former smoker Tobacco type: pipe and cigars Alcohol intake: never Substance use: never Substance use type: does not use Spiritual care concerns: No Meds Home Medications and Allergies Home Medications Medication Instructions Recorded Confirmed Type acetaminophen 325 mg tablet 650 mg PO 6XD PRN Pain, Mild 09/04/21 09/04/21 History famotidine 20 mg tablet 20 mg PO BID 09/04/21 09/04/21 History folic acid 1 mg tablet 1 mg PO DAILY 09/04/21 09/04/21 History loperamide 2 mg capsule 2 mg PO QID PRN Diarrhea 09/04/21 09/04/21 History midodrine 2.5 mg tablet 7.5 mg PO QID 09/04/21 09/04/21 History Allergies Allergy/AdvReac Type Severity Reaction Status Date / Time shellfish derived Allergy Hives Verified 09/04/21 18:12 Vital Signs Vital Signs - 24 hr 09/13/21 20:18 09/14/21 00:00 09/14/21 04:16 Temperature 36.4 C 36.5 C 36.6 C Pulse Rate 67 69 70 Respiratory Rate 18 18 16 Blood Pressure 125/66 134/60 122/58 L Pulse Oximetry 100 100 100 Oxygen Delivery 09/14/21 07:50 09/14/21 12:15 09/14/21 12:56 Temperature 36.5 C Pulse Rate 70 Respiratory Rate 16 Blood Pressure 140/68 Pulse Oximetry 100 Oxygen Delivery Room Air Room Air Exam Const: General: confusion Nutritional Appearance: underweight Orientation/consciousness: patient oriented x3 Resp: Auscultation: clear to auscultation bilaterally Cardio: Rhythm: regular rhythm GI: I
[2021-09-14 19:39] VITALS: BP 100/66; PULSE 56; RESP 20; TEMP 36.3; O2SAT 100
[2021-09-14] MEDS: MELATONIN 3 MG TABLET PO (20:12)
[2021-09-15] VITALS: BP 128/57; PULSE 63; RESP 18; TEMP 35.7; O2SAT 100
[2021-09-15 03:22] VITALS: BP 125/68; PULSE 86; RESP 16; TEMP 36.5; O2SAT 100
[2021-09-15] MEDS: SODIUM CHLORIDE 0.9% IV 1,000 ML 50 ML IV CONT (04:45)
[2021-09-15 06:12] LABS: Hematocrit 31.4 % (42.0-52.0); Hemoglobin 10.4 g/dL (14.0-18.0); Mean Corpuscular HGB Conc 33.1 g/dl (32-36); Mean Corpuscular Hemoglobin 29.3 pg (26-34); Mean Corpuscular Volume 88.5 fl (80-100); Mean Platelet Volume 8.3 fl (7.4-10.4); Platelet Count Result 231 k/mm3 (150-375); Red Blood Count 3.55 M/mm3 (4.6-6.20); Red Cell Distribution Width 15.2 % (11.5-14.5); White Blood Count 6.3 K/mm3 (4.5-10.0)
[2021-09-15 06:25] LABS: Anion Gap 2 mmol/L (8-16); Blood Urea Nitrogen 5 mg/dL (9-20); Calcium 7.3 mg/dL (8.4-10.2); Carbon Dioxide 20 mmol/L (22-30); Chloride 108 mmol/L (98-107); Estimated CRCL calculation 65 ml/min; Estimated Glomerular Filt Rate > 60; Glucose 73 mg/dL (65-110); Potassium 4.6 mmol/L (3.4-5.0); Sodium 130 mmol/L (137-145)
[2021-09-15] MEDS: MIDODRINE HCL 2.5 MG TABLET 7.5 MG PO ×4 (08:19→20:41)
[2021-09-15] MEDS: PANTOPRAZOLE 40 MG TABLET PO (08:19)
[2021-09-15] MEDS: POTASSIUM CHLORIDE 20 MEQ TABLET.ER 40 MEQ PO ×2 (08:19→17:13)
[2021-09-15] MEDS: FOLIC ACID 1 MG TABLET PO (08:19)
[2021-09-15] MEDS: COLLAGENASE OINT 30 GM TUBE 1 APPLIC TOPICAL (08:20)
[2021-09-15] MEDS: MEGESTROL ACETATE (*CHEMO) 40 MG TABLET PO ×3 (08:20→17:12)
[2021-09-15 14:27] VITALS: BP 97/54; PULSE 80; RESP 18; TEMP 37.1; O2SAT 100
--- NOTE | 2021-09-15 15:53 | PM.IMPN ---
Progress Note: A&P Assessment and Plan (1) Pancolitis: Code(s): K51.00 - Ulcerative (chronic) pancolitis without complications Status: Acute Assessment and Plan: Noted on CT abd/pelv -completed 5 days of Levaquin and Flagyl. Antibiotics discontinued on 09/12 per ID PharmD recommendations. Stool cultures negative. -diarrhea is persistent -continue low-fiber diet -persistent pancolitis and weight loss concerning for inflammatory bowel disease versus malignancy -consult to GI. Recommendations appreciated. -recommendations for colonoscopy per GI. Patient's daughter/POA would like to proceed with this. Patient agreeable. (2) Acute GI bleeding: Code(s): K92.2 - Gastrointestinal hemorrhage, unspecified Status: Acute Assessment and Plan: ER notes indicate he was having bright red blood in his stool -likely secondary to pancolitis -stool occult blood test positive -H&H remaining stable. No further episodes of bleeding. -appreciate GI consultation (3) Hyponatremia: Code(s): E87.1 - Hypo-osmolality and hyponatremia Status: Acute Assessment and Plan: Appears to be chronic, near his baseline - 130 today - Monitor BMP (4) Hypokalemia: Code(s): E87.6 - Hypokalemia Status: Resolved Assessment and Plan: Resolved. - 4.6 today - Monitor BMP (5) Protein calorie malnutrition: Code(s): E46 - Unspecified protein-calorie malnutrition Status: Acute Assessment and Plan: Patient with poor appetite and extremely decreased p.o. intake -continue Megace -appreciate dietitian evaluation -continue dietary supplements (6) Dementia: Code(s): F03.90 - Unspecified dementia without behavioral disturbance Status: Acute Assessment and Plan: Daughter reports patient was diagnosed with dementia in July -Not currently on any medications -Pt A&O x3 on evaluation today (7) Failure to thrive: Status: Acute Assessment and Plan: Patient with overall diminished oral intake, somnolence, refusing activity Plan as above Daughter/POA has been in contact with hospice. Plan PT/OT carlos appreciated Subjective Date/time seen: 09/15/21 15:53 Interval history: Date of service: 09/15/2021 Philip Hernández is a 75-year-old male with a history of CVA and CAD who is seen in follow-up for pancolitis. This is his 3rd hospitalization for pancolitis over the past 6 months. He continues to states that he feels tired. He cannot recall if he ate breakfast. When asked about diarrhea he said ?a little. He complains of feeling cold. No further history is obtainable. Review of Systems Review of Systems: ROS unobtainable: Yes unobtainable due to mental status Exam Narrative: General: Thin, tired appearing 75-year-old male, supine in bed with covers over his head, NARD Neuro: awake, alert and oriented x4, speech clear, no focal neuro deficits noted HEENMT: normocephalic, atraumatic, EOMI, sclerae anicteric Respiratory: clear to auscultation bilaterally, nonlabored breathing Cardio: regular rate, regular rhythm with S1-S2 Abdomen: nondistended, normoactive bowel sounds, soft, nontender to palpation Extremities: no edema, erythema, or tenderness to palpation, DP pulses 2+ bilaterally Skin: no rashes or lesions, warm and dry Psych: flat affect, judgment and insight poor Objective Data Vital Signs Vital Signs: Vital Signs - 24 hr 09/14/21 19:39 09/15/21 00:00 09/15/21 03:22 Temperature 97.3 F L 96.2 F L 97.7 F Pulse Rate 56 L 63 86 Respiratory Rate 20 18 16 Blood Pressure 100/66 128/57 L 125/68 Pulse Oximetry 100 100 100 Oxygen Delivery 09/15/21 08:15 09/15/21 14:27 Temperature 98.8 F Pulse Rate 80 Respiratory Rate 18 Blood Pressure 97/54 L Pulse Oximetry 100 Oxygen Delivery Room Air Intake/Output Intake/Output: Intake & Output 09/12/21 09/13/21 09/14/21 09/15/21 23:59
--- NOTE | 2021-09-15 16:33 | PC.NURSE ---
Spoke with Dr Graham re: colonoscopy on Friday with Dr Goodrich. Dr Graham will see patient tomorrow.
[2021-09-15 19:24] VITALS: BP 110/58; PULSE 77; RESP 16; TEMP 35.7; O2SAT 95
[2021-09-15] MEDS: MELATONIN 3 MG TABLET PO (20:41)
[2021-09-16 04:10] VITALS: BP 113/67; PULSE 68; RESP 17; TEMP 36.6; O2SAT 95
[2021-09-16 05:49] LABS: Hematocrit 36.9 % (42.0-52.0); Hemoglobin 11.3 g/dL (14.0-18.0); Mean Corpuscular HGB Conc 30.6 g/dl (32-36); Mean Corpuscular Hemoglobin 29.1 pg (26-34); Mean Corpuscular Volume 95.1 fl (80-100); Mean Platelet Volume 8.7 fl (7.4-10.4); Platelet Count Result 243 k/mm3 (150-375); Red Blood Count 3.88 M/mm3 (4.6-6.20); Red Cell Distribution Width 15.7 % (11.5-14.5); White Blood Count 8.5 K/mm3 (4.5-10.0)
[2021-09-16 07:22] LABS: Anion Gap 3 mmol/L (8-16); Blood Urea Nitrogen 6 mg/dL (9-20); Calcium 7.7 mg/dL (8.4-10.2); Carbon Dioxide 22 mmol/L (22-30); Chloride 107 mmol/L (98-107); Estimated CRCL calculation 65 ml/min; Estimated Glomerular Filt Rate > 60; Glucose 81 mg/dL (65-110); Potassium 4.6 mmol/L (3.4-5.0); Sodium 132 mmol/L (137-145)
[2021-09-16 07:31] LABS: Albumin Level 2.4 g/dL (3.5-5.1)
[2021-09-16] MEDS: MEGESTROL ACETATE (*CHEMO) 40 MG TABLET PO ×3 (08:10→16:23)
[2021-09-16] MEDS: COLLAGENASE OINT 30 GM TUBE 1 APPLIC TOPICAL (08:10)
[2021-09-16] MEDS: MIDODRINE HCL 2.5 MG TABLET 7.5 MG PO ×4 (08:10→20:37)
[2021-09-16] MEDS: POTASSIUM CHLORIDE 20 MEQ TABLET.ER 40 MEQ PO ×2 (08:10→16:24)
[2021-09-16] MEDS: FOLIC ACID 1 MG TABLET PO (08:10)
[2021-09-16] MEDS: PANTOPRAZOLE 40 MG TABLET PO (08:10)
--- NOTE | 2021-09-16 10:50 | PM.IMPN ---
Progress Note: A&P Assessment and Plan (1) Pancolitis: Code(s): K51.00 - Ulcerative (chronic) pancolitis without complications Status: Acute Assessment and Plan: Noted on CT abd/pelv -completed 5 days of Levaquin and Flagyl. Antibiotics discontinued on 09/12 per ID PharmD recommendations. Stool cultures negative. -diarrhea is persistent -continue low-fiber diet -persistent pancolitis and weight loss concerning for inflammatory bowel disease versus malignancy -consult to GI. Recommendations appreciated. -recommendations for colonoscopy per GI. Patient's daughter/POA would like to proceed with this. Patient agreeable. Hopefully can be completed tomorrow, will await GI recommendations (2) Acute GI bleeding: Code(s): K92.2 - Gastrointestinal hemorrhage, unspecified Status: Acute Assessment and Plan: ER notes indicate he was having bright red blood in his stool -likely secondary to pancolitis -stool occult blood test positive -H&H remaining stable. No further episodes of bleeding. -appreciate GI consultation (3) Hyponatremia: Code(s): E87.1 - Hypo-osmolality and hyponatremia Status: Acute Assessment and Plan: Appears to be chronic, near his baseline - 132 today - Monitor BMP (4) Hypokalemia: Code(s): E87.6 - Hypokalemia Status: Resolved Assessment and Plan: Resolved. - 4.6 today - Monitor BMP (5) Protein calorie malnutrition: Code(s): E46 - Unspecified protein-calorie malnutrition Status: Acute Assessment and Plan: Patient with poor appetite and extremely decreased p.o. intake -continue Megace -appreciate dietitian evaluation -continue dietary supplements -pt ate a good breakfast today (6) Dementia: Code(s): F03.90 - Unspecified dementia without behavioral disturbance Status: Acute Assessment and Plan: Daughter reports patient was diagnosed with dementia in July -Not currently on any medications -Pt A&O x3 on evaluation today (7) Failure to thrive: Status: Acute Assessment and Plan: Patient with overall diminished oral intake, somnolence, refusing activity Plan as above Daughter/POA has been in contact with hospice for informational meeting, however at this time awaiting colonoscopy. Hopeful that based on colonscopy findings, he can begin appropriate therapy that will improve his diarrhea and he will be more willing to eat. Plan PT/OT eval appreciated Subjective Date/time seen: 09/16/21 10:50 Interval history: Date of service: 09/15/2021 Philip Hernández is a 75-year-old male with a history of CVA and CAD who is seen in follow-up for pancolitis. This is his 3rd hospitalization for pancolitis over the past 6 months. He again complains of feeling cold today. He also states that he is tired. He does not offer any additional complaints. He is a bit more alert today. His nurse was present at the time my evaluation. Reports he has been having at least 2 episodes of diarrhea per shift. His RN and I helped him with his breakfast tray and I watched him drink his full Esure and eat his full serving of cream of wheat. He was able to feed himself appropriately. Encouraged him to try to eat something at lunch as well. He denied abdominal pain. He denied chest pain or shortness of breath. He did not provide any additional history. Review of Systems Review of Systems: ROS unobtainable: Yes unobtainable due to mental status Exam Narrative: General: Thin, tired appearing 75-year-old male, supine in bed, comfortable, NARD Neuro: awake, alert, answering all questions appropriately, follows all commands, speech clear, no focal neuro deficits noted HEENMT: normocephalic, atraumatic, EOMI, sclerae anicteric Respiratory: clear to auscultation bilaterally, nonlabored breathing Cardio: regular rate, regular rhythm with S1-S2 Abdomen: nondistended, normoactive darrick
[2021-09-16] MEDS: SIMETHICONE 80 MG TAB.CHEW 160 MG PO ×3 (11:43→20:37)
[2021-09-16] MEDS: BISACODYL 5 MG TABLET EC 10 MG PO ×3 (11:43→20:38)
[2021-09-16] MEDS: polyethylene glycoL 3350 238 GM BOTTLE PO (12:45)
[2021-09-16 14:04] VITALS: BP 108/61; PULSE 60; RESP 16; TEMP 36.5; O2SAT 100
[2021-09-16 22:00] VITALS: BP 109/71; PULSE 74; RESP 21; TEMP 36.6; O2SAT 100
[2021-09-17] VITALS (9 sets, daily range): BP systolic 101–132; BP diastolic 56–82; PULSE 68–93; RESP 12–25; TEMP 36.1–36.6; O2SAT 99–100
[2021-09-17] MEDS: MAGNESIUM CITRATE 300 ML BTL 180 ML PO (04:13)
[2021-09-17 08:08] LABS: Glucose Point of Care 83 mg/dl (65-105)
[2021-09-17] MEDS: COLLAGENASE OINT 30 GM TUBE 1 APPLIC TOPICAL (08:11)
[2021-09-17] MEDS: POTASSIUM CHLORIDE 20 MEQ TABLET.ER 40 MEQ PO ×2 (08:12→16:55)
[2021-09-17] MEDS: PANTOPRAZOLE 40 MG TABLET PO (08:12)
[2021-09-17] MEDS: MEGESTROL ACETATE (*CHEMO) 40 MG TABLET PO ×3 (08:12→16:55)
[2021-09-17] MEDS: MIDODRINE HCL 2.5 MG TABLET 7.5 MG PO ×4 (08:12→20:24)
[2021-09-17] MEDS: FOLIC ACID 1 MG TABLET PO (08:12)
--- NOTE | 2021-09-17 10:22 | P.PNAN_ITS ---
Anes - Initial Pre Proc Eval Procedure: Operation Date: 09/17/21 14:15 Proposed Procedures p Colonoscopy - Jaydon Goodrich MD Date/Time: 09/17/21 10:22 Surgeon: Mary Tomlinosn PA-C Pre Op Diagnosis: GI BLEED, PANCOLITIS Patient Data Age: 75 Gender: M Height: 1.68 m Weight: 65.9 kg Last Vital Signs Temp 36.4 C 09/17/21 08:35 Pulse 91 09/17/21 08:35 Resp 14 09/17/21 08:35 BP 126/82 09/17/21 08:35 Pulse Ox 99 09/17/21 08:39 O2 Del Method Room Air 09/17/21 08:39 Allergies Allergy/AdvReac Type Severity Reaction Status Date / Time shellfish derived Allergy Hives Verified 09/17/21 13:16 Home Medications Medication Instructions Recorded Confirmed Type acetaminophen 325 mg tablet 650 mg PO 6XD PRN Pain, Mild 09/04/21 09/04/21 History famotidine 20 mg tablet 20 mg PO BID 09/04/21 09/04/21 History folic acid 1 mg tablet 1 mg PO DAILY 09/04/21 09/04/21 History loperamide 2 mg capsule 2 mg PO QID PRN Diarrhea 09/04/21 09/04/21 History midodrine 2.5 mg tablet 7.5 mg PO QID 09/04/21 09/04/21 History Laboratory Tests 09/17/21 07:52 POC Capillary Glucose 83 mg/dl mg/dl (65-105) Patient hx anesthesia problems: none Family hx anesthesia problems: none Results Review: All pre-operative results and documents have been reviewed as part of the pre- operative evaluation. [facility] Past Medical History Medical History (Updated 09/17/21 @ 10:23 by Bernard Reilly DO) CVA (cerebral vascular accident) Dementia Failure to thrive Hypertension Myocardial infarction Protein calorie malnutrition Social History Social History (Updated 02/22/21 @ 12:34 by Nya Landrum MD) Smoking status: Former smoker Tobacco type: pipe and cigars Alcohol intake: never Substance use: never Substance use type: does not use Spiritual care concerns: No Anes - Eval Final PreProcedure Day of Procedure 09/17/21 10:22 Patient weight: normal Heart: regular rate and rhythm Lungs: clear to auscultation Airway: Mallampati scale class II Neurological: alert and oriented Last oral intake: >/= 8 hours ASA classification: IV Emergent: no Anesthetic plan: proceed Anesthesia type and monitoring: general GIVS and standard monitoring Results Review: All pre-operative results and documents have been reviewed as part of the pre- operative evaluation. Informed Consent: The patient's anesthetic plan and its attendant risks and benefits were discussed with the patient/family/POA. Questions were solicited and answers provided to the satisfaction of the patient/family/POA.
[2021-09-17] MEDS: LACTATED RINGERS 1,000 ML 150 ML IV CONT (13:27)
--- NOTE | 2021-09-17 14:50 | SUR.PHASEII ---
Patient transferred to [address] bed 248-01 at 1430. Patient comfortably in bed. Bed exit alarm on. GREGORIO arango.
--- NOTE | 2021-09-17 14:56 | PCNFU ---
Nutrition Follow-Up Complete: Suboptimal po intake related to reduced appetite as evidenced by poor intake Goal: PO intake 75% or greater of meals and supplements Pt current nutrition is low fiber diet. Nutrition recommendation: Add Ensure compact TID with meals, Banitrol BID Last recorded weight is 65.9 kg - stable at this time. Bowel Motility: +BM 09/16 Labs Reviewed: Hgb:11.3, HCT:36.9, Alb:2.4, NA:132, BUN:6 Meds Noted: megace, solumedrol, protonix, zofran Skin: WNL Additional Notes: Pt NPO today for procedure. Diet restarted as low fiber this afternoon. Was on ensure compact BID, recommend to increase to TID with meals. Also noted diarrhea, recommend banitrol BID. Monitor intake, tolerance, wt, labs. Follow up in 5 days.
[2021-09-17] MEDS: methylPREDNISolone SOD SUCC 40 MG VIAL IV PUSH ×2 (15:07→20:24)
--- NOTE | 2021-09-17 16:15 | PM.IMPN ---
Progress Note: A&P Assessment and Plan (1) Chronic pancolonic ulcerative colitis: Code(s): K51.00 - Ulcerative (chronic) pancolitis without complications Status: Acute Assessment and Plan: Patient with pancolitis noted on CT on presentation. Third hospitalization for pancolitis in 6 months (at outside facility) however no colonoscopy completed -completed 5 days of Levaquin and Flagyl. Antibiotics discontinued on 09/12 per ID PharmD recommendations. Stool cultures negative. -he has been seen in consultation by Gastroenterology -colonoscopy performed today showed ulcerative chronic pancolitis throughout the colon. Biopsies collected and are pending -continue low-fiber diet -begin mesalamine 1000 mg qid -begin Solu-Medrol 40 mg q.8 hours (2) Acute GI bleeding: Code(s): K92.2 - Gastrointestinal hemorrhage, unspecified Status: Acute Assessment and Plan: ER notes indicate he was having bright red blood in his stool -likely secondary to pancolitis -stool occult blood test positive -H&H remaining stable. No further episodes of bleeding. -appreciate GI consultation (3) Hyponatremia: Code(s): E87.1 - Hypo-osmolality and hyponatremia Status: Acute Assessment and Plan: Appears to be chronic, near his baseline - sodium levels remaining stable - Monitor BMP (4) Hypokalemia: Code(s): E87.6 - Hypokalemia Status: Resolved Assessment and Plan: Resolved. - potassium levels have been stable - Monitor BMP (5) Protein calorie malnutrition: Code(s): E46 - Unspecified protein-calorie malnutrition Status: Acute Assessment and Plan: Patient with poor appetite and extremely decreased p.o. intake -continue Megace -appreciate dietitian evaluation -continue dietary supplements (6) Dementia: Code(s): F03.90 - Unspecified dementia without behavioral disturbance Status: Acute Assessment and Plan: Daughter reports patient was diagnosed with dementia in July -Not currently on any medications -Pt A&O x3 on evaluation today (7) Failure to thrive: Status: Acute Assessment and Plan: Patient with overall diminished oral intake, somnolence, refusing activity - Plan as above - Daughter/POA has been in contact with hospice for informational meeting, however wished to defer until colonoscopy. - Hopeful that based on colonscopy findings of ulcerative pancolitis and initiation of therapy that will improve his symptomsand he will be more willing to eat. Plan PT/OT carlos appreciated Subjective Date/time seen: 09/17/21 16:15 Interval history: Date of service: 09/15/2021 Philip Hernández is a 75-year-old male with a history of CVA and CAD who is seen in follow-up for pancolitis. This is his 3rd hospitalization for pancolitis over the past 6 months. He states he feels cold today. He is having trouble sleeping and states he is feeling restless. He tolerated his colonoscopy prep. He denies abdominal pain or cramping. He has been NPO today. Denies shortness of breath or chest pain. He has no additional complaints. Review of Systems Review of Systems: All systems reviewed & are unremarkable except as noted in HPI and below Exam Narrative: General: Thin, tired appearing 75-year-old male, supine in bed, comfortable, NARD Neuro: awake, alert, answering all questions appropriately, follows all commands, speech clear, no focal neuro deficits noted HEENMT: normocephalic, atraumatic, EOMI, sclerae anicteric Respiratory: clear to auscultation bilaterally, nonlabored breathing Cardio: regular rate, regular rhythm with S1-S2 Abdomen: nondistended, normoactive bowel sounds, soft, nontender to palpation Extremities: no edema, erythema, or tenderness to palpation, DP pulses 2+ bilaterally Skin: no rashes or lesions, warm and dry Psych: flat affect, judgment and insight fair Objective Data Vital Signs Vital
[2021-09-17] MEDS: MESALAMINE 250 MG CAP CR 1000 MG PO ×2 (16:54→20:24)
[2021-09-17] MEDS: MELATONIN 3 MG TABLET PO (20:24)
[2021-09-17 21:19] LABS: CRP 1.1 mg/dL (<1.0)
[2021-09-18] VITALS (8 sets, daily range): BP systolic 90–146; BP diastolic 50–73; PULSE 58–87; RESP 16–21; TEMP 36.1–36.6; O2SAT 97–100
[2021-09-18] MEDS: methylPREDNISolone SOD SUCC 40 MG VIAL IV PUSH ×3 (05:47→22:36)
--- NOTE | 2021-09-18 07:54 | WPDANESPN ---
Anes - Prog Note Post-Op Date/Time: 09/18/21 07:54 Cardiovascular status: normal Respiratory status: normal Airway patency: baseline Mental status: baseline Post-Op hydration status: normal Vital Signs: Last Vital Signs Temp 36.3 C L 09/18/21 06:00 Pulse 58 L 09/18/21 06:00 Resp 20 09/18/21 06:00 BP 113/50 L 09/18/21 06:00 Pulse Ox 99 09/18/21 06:00 O2 Del Method Room Air 09/18/21 07:43 Pain Score (VAS): 0 I/O: Intake & Output 09/17/21 09/17/21 09/18/21 15:59 23:59 07:59 Intake Total 100 280 150 Output Total 600 Balance 100 280 -450 Laboratory Tests 09/16/21 05:32 09/16/21 06:53 09/17/21 09/17/21 07:52 20:39 POC Capillary Glucose 83 C-Reactive Protein 1.1 Post-procedural complaints: none Patient Feedback: Patient satisfied with anesthetic care.
[2021-09-18] MEDS: MIDODRINE HCL 2.5 MG TABLET 7.5 MG PO ×4 (08:36→20:03)
[2021-09-18] MEDS: POTASSIUM CHLORIDE 20 MEQ TABLET.ER 40 MEQ PO ×2 (08:36→17:37)
[2021-09-18] MEDS: MESALAMINE 250 MG CAP CR 1000 MG PO ×4 (08:36→20:03)
[2021-09-18] MEDS: MEGESTROL ACETATE (*CHEMO) 40 MG TABLET PO ×3 (08:36→17:38)
[2021-09-18] MEDS: FOLIC ACID 1 MG TABLET PO (08:36)
[2021-09-18] MEDS: COLLAGENASE OINT 30 GM TUBE 1 APPLIC TOPICAL (08:38)
[2021-09-18] MEDS: PANTOPRAZOLE 40 MG TABLET PO (08:39)
[2021-09-18 09:00] LABS: Hematocrit 34.1 % (42.0-52.0); Hemoglobin 11.3 g/dL (14.0-18.0); Mean Corpuscular HGB Conc 33.1 g/dl (32-36); Mean Corpuscular Hemoglobin 30.1 pg (26-34); Mean Corpuscular Volume 90.7 fl (80-100); Mean Platelet Volume 8.5 fl (7.4-10.4); Platelet Count Result 361 k/mm3 (150-375); Red Blood Count 3.76 M/mm3 (4.6-6.20); Red Cell Distribution Width 15.7 % (11.5-14.5); White Blood Count 15.2 K/mm3 (4.5-10.0)
[2021-09-18 09:10] LABS: Anion Gap 4 mmol/L (8-16); Blood Urea Nitrogen 10 mg/dL (9-20); Calcium 8.1 mg/dL (8.4-10.2); Carbon Dioxide 21 mmol/L (22-30); Chloride 105 mmol/L (98-107); Estimated CRCL calculation 52 ml/min; Estimated Glomerular Filt Rate > 60; Glucose 118 mg/dL (65-110); Potassium 5.1 mmol/L (3.4-5.0); Sodium 130 mmol/L (137-145)
[2021-09-18] MEDS: SODIUM CHLORIDE 0.9% IV 500 ML 250 ML IV CONT (10:23)
--- NOTE | 2021-09-18 13:18 | PM.IMPN ---
Progress Note: A&P Assessment and Plan (1) Chronic pancolonic ulcerative colitis: Code(s): K51.00 - Ulcerative (chronic) pancolitis without complications Status: Acute Assessment and Plan: Patient with pancolitis noted on CT on presentation. Third hospitalization for pancolitis in 6 months (at outside facility) however no colonoscopy completed -Completed 5 days of Levaquin and Flagyl. Antibiotics discontinued on 09/12 per ID PharmD recommendations. Stool cultures negative. -He has been seen in consultation by Gastroenterology -colonoscopy 09/17 showed ulcerative chronic pancolitis throughout the colon. Biopsies collected and are pending -continue low-fiber diet -Continue mesalamine 1000 mg qid started on 09/17 -Continue Solu-Medrol 40 mg q.8 hours. Wean based on GI recommendations Spoke with daughter/POA via phone today. She states patient was diagnosed with ulcerative colitis in March and was supposedly taking mesalamine although this diagnosis or medication is not evident in his records and this was not reported to me by family when discussing possibility of ulcerative colitis prior to colonoscopy. (2) Acute GI bleeding: Code(s): K92.2 - Gastrointestinal hemorrhage, unspecified Status: Acute Assessment and Plan: ER notes indicate he was having bright red blood in his stool -likely secondary to pancolitis -stool occult blood test positive -H&H remaining stable. No further episodes of bleeding. -appreciate GI consultation (3) Hyponatremia: Code(s): E87.1 - Hypo-osmolality and hyponatremia Status: Acute Assessment and Plan: Appears to be chronic, near his baseline - sodium levels remaining stable, 130 today - Monitor BMP (4) Hypokalemia: Code(s): E87.6 - Hypokalemia Status: Resolved Assessment and Plan: Resolved. - Potassium levels have been stable - Mildly elevated today at 5.1 for unclear reasons. He is not on potassium supplementation and not on any potassium raising medications - Monitor potassium levels closely (5) Protein calorie malnutrition: Code(s): E46 - Unspecified protein-calorie malnutrition Status: Acute Assessment and Plan: Patient with poor appetite and extremely decreased p.o. intake -continue Megace -appreciate dietitian evaluation -continue dietary supplements (6) Dementia: Code(s): F03.90 - Unspecified dementia without behavioral disturbance Status: Acute Assessment and Plan: Daughter reports patient was diagnosed with dementia in July -Not currently on any medications -Pt A&O x3 on evaluation today (7) Failure to thrive: Status: Acute Assessment and Plan: Patient with overall diminished oral intake, somnolence, overall decline - Plan as above - Daughter/POA has been in contact with hospice for informational meeting, however wished to defer until colonoscopy. - Continue to encourage PO intake - PT/OT (8) Orthostatic hypotension: Code(s): I95.1 - Orthostatic hypotension Status: Acute Assessment and Plan: Patient became dizzy today while participating in PT 25 point drop in BP from standing to supine position. Administer 500 cc IV fluid bolus CARLEE gilbert Fall precautions Monitor orthostatics Subjective Date/time seen: 09/18/21 13:18 Interval history: Date of service: 09/15/2021 Philip Hernández is a 75-year-old male with a history of CVA and CAD who is seen in follow-up for pancolitis. This is his 3rd hospitalization for pancolitis over the past 6 months. This morning when he got up with therapy he felt dizzy and lightheaded and had to lay back down. He states this happens to him from time to time. He does endorse abdominal discomfort. His appetite remains poor. He did eat some cream of wheat this morning. He complains of feeling cold. His dizziness/lightheadedness has resolved. He denies fevers or chills.
[2021-09-18] MEDS: MELATONIN 3 MG TABLET PO (20:03)
[2021-09-19] VITALS (10 sets, daily range): BP systolic 78–133; BP diastolic 48–75; PULSE 50–91; RESP 12–21; TEMP 36.2–36.6; O2SAT 95–100
[2021-09-19 05:45] LABS: Hematocrit 39.6 % (42.0-52.0); Hemoglobin 12.9 g/dL (14.0-18.0); Mean Corpuscular HGB Conc 32.6 g/dl (32-36); Mean Corpuscular Hemoglobin 29.5 pg (26-34); Mean Corpuscular Volume 90.4 fl (80-100); Mean Platelet Volume 9.4 fl (7.4-10.4); Platelet Count Result 346 k/mm3 (150-375); Red Blood Count 4.38 M/mm3 (4.6-6.20); Red Cell Distribution Width 15.9 % (11.5-14.5); White Blood Count 15.4 K/mm3 (4.5-10.0)
[2021-09-19] MEDS: methylPREDNISolone SOD SUCC 40 MG VIAL IV PUSH (05:53)
[2021-09-19 06:42] LABS: Anion Gap 5 mmol/L (8-16); Blood Urea Nitrogen 14 mg/dL (9-20); Calcium 8.8 mg/dL (8.4-10.2); Carbon Dioxide 22 mmol/L (22-30); Chloride 105 mmol/L (98-107); Estimated CRCL calculation 58 ml/min; Estimated Glomerular Filt Rate > 60; Glucose 110 mg/dL (65-110); Potassium 5.6 mmol/L (3.4-5.0); Sodium 132 mmol/L (137-145)
--- NOTE | 2021-09-19 07:01 | WPDGIPROGNO ---
Progress Note: A&P Assessment and Plan (1) Pancolitis: Code(s): K51.00 - Ulcerative (chronic) pancolitis without complications Status: Acute Assessment and Plan: given the fact that he has apparently had evidence of beverly colitis for at least 6 months, this suggests that he has inflammatory bowel disease, most likely ulcerative colitis. Colonoscopy would be very helpful 09/19/2021 biopsies do confirm ulcerative colitis. This severely suggested he may in fact at some point need a biologic. I am not sure how that could be managed at home. I think we can discontinue the intravenous steroids and started tapering dose of prednisone, 40 mg/ day for 1 week; then 30 mg etcetera (2) Acute GI bleeding: Code(s): K92.2 - Gastrointestinal hemorrhage, unspecified Status: Acute Assessment and Plan: no further bleeding. His hemoglobin today is higher than yesterday. It is now 10.7 and 32.7 09/19/2021 Hemoglobin today is 12.9 (3) Protein calorie malnutrition: Code(s): E46 - Unspecified protein-calorie malnutrition Status: Acute Assessment and Plan: he states that he has lost 40 lb. His albumin is 1.9. He also has lymphopenia supporting protein calorie malnutrition Subjective Date/time seen: 09/19/21 07:01 Patient has no complaints today. No bloody stools have been noted. Biopsies do confirm that he has severe ulcerative colitis. Apparently the family had been aware of that. When I asked the patient if he had been told in the past that he had colitis he nodded 'yes' but he cannot recall anything about medications which he may have taken. I see in the hospitalist's notes that the family recalls him being on mesalamine earlier in the year. Apparently he was treated somewhere else. Exam Const: General: confusion Nutritional Appearance: underweight Orientation/consciousness: patient oriented x3 and confusion Resp: Auscultation: clear to auscultation bilaterally Cardio: Rhythm: regular rhythm GI: Inspection: scaphoid Auscultation: normal bowel sounds Neuro: General: patient oriented x3 and confusion Objective Data Vital Signs Vital Signs: Vital Signs - 24 hr 09/18/21 07:43 09/18/21 09:22 09/18/21 09:23 Temperature Pulse Rate 76 87 Respiratory Rate Blood Pressure 115/70 90/58 L Pulse Oximetry 100 100 Oxygen Delivery Room Air 07/12/22 14:00 09/18/21 22:44 09/18/21 22:45 Temperature 36.6 C 36.2 C L 36.1 C L Pulse Rate 73 65 61 Respiratory Rate 16 18 21 H Blood Pressure 109/57 L 146/68 H 115/73 Pulse Oximetry 100 97 100 Oxygen Delivery 09/18/21 22:46 09/18/21 22:00 09/19/21 05:21 Temperature 36.2 C L 36.2 C L 36.6 C Pulse Rate 72 65 62 Respiratory Rate 21 H 18 21 H Blood Pressure 90/63 L 146/68 H 126/68 Pulse Oximetry 100 97 100 Oxygen Delivery Intake/Output Intake/Output: Intake & Output 09/16/21 09/17/21 09/18/21 09/19/21 23:59 23:59 23:59 23:59 Intake Total 637 561 3418 200 Output Total 750 606 750 950 Balance -275 -226 810 -750 Meds/Results Medications: Active Medications Generic Name Dose Route Start Last Admin Trade Name Freq PRN Reason Stop Dose Admin Acetaminophen 650 mg 09/05/21 01:42 09/12/21 23:36 Acetaminophen 325 Mg Tablet PO 650 mg Q4H PRN Administration Pain Rated 1-3 Collagenase 1 applic 09/05/21 09:00 09/18/21 08:38 Collagenase Oint 30 Gm Tube TOPICAL 1 applic QAM ANKIT Administration Folic Acid 1 mg 09/05/21 09:00 09/18/21 08:36 Folic Acid 1 Mg Tablet PO 1 mg DAILY ANKIT Administration Megestrol Acetate 40 mg 09/10/21 17:00 09/18/21 17:38 Megestrol Acetate (*Chemo) 40 Mg Tablet PO 40 mg TIDWM ANKIT Administration Melatonin 3 mg 09/14/21 21:00 09/18/21 20:03 Melatonin 3 Mg Tablet PO 3 mg HS ANKIT Administration Mesalamine 1,000 mg 09/17/21 17:00 09/18/21 20:03 Mesalamine 250 Mg Cap Cr PO 1,000 mg QID ANKIT Administration Met
[2021-09-19] MEDS: PANTOPRAZOLE 40 MG TABLET PO (08:11)
[2021-09-19] MEDS: MESALAMINE 250 MG CAP CR 1000 MG PO ×4 (08:11→22:55)
[2021-09-19] MEDS: MIDODRINE HCL 2.5 MG TABLET 7.5 MG PO ×4 (08:11→19:53)
[2021-09-19] MEDS: MEGESTROL ACETATE (*CHEMO) 40 MG TABLET PO ×3 (08:11→16:33)
[2021-09-19] MEDS: FOLIC ACID 1 MG TABLET PO (08:11)
[2021-09-19] MEDS: COLLAGENASE OINT 30 GM TUBE 1 APPLIC TOPICAL (08:12)
--- NOTE | 2021-09-19 10:20 | PM.IMPN ---
Progress Note: A&P Assessment and Plan (1) Chronic pancolonic ulcerative colitis: Code(s): K51.00 - Ulcerative (chronic) pancolitis without complications Status: Acute Assessment and Plan: Patient with pancolitis noted on CT on presentation. Third hospitalization for pancolitis in 6 months (at outside facility) however no colonoscopy completed -Completed 5 days of Levaquin and Flagyl. Antibiotics discontinued on 09/12 per ID PharmD recommendations. Stool cultures negative. -He has been seen in consultation by Gastroenterology -colonoscopy 09/17 showed ulcerative chronic pancolitis throughout the colon. Biopsies collected and do confirm UC -continue low-fiber diet -Continue mesalamine 1000 mg qid started on 09/17 -Was on Solu-Medrol 40 mg q.8 hours. Wean to oral prednisone taper based on GI recommendations. Spoke with daughter/POA via phone 09/18/21. She states patient was diagnosed with ulcerative colitis in March and was supposedly taking mesalamine although this diagnosis or medication is not evident in his records and this was not reported to me by family when discussing possibility of ulcerative colitis prior to colonoscopy. (2) Acute GI bleeding: Code(s): K92.2 - Gastrointestinal hemorrhage, unspecified Status: Acute Assessment and Plan: ER notes indicate he was having bright red blood in his stool -likely secondary to pancolitis -stool occult blood test positive -H&H remaining stable. No further episodes of bleeding. -appreciate GI consultation (3) Hyponatremia: Code(s): E87.1 - Hypo-osmolality and hyponatremia Status: Acute Assessment and Plan: Appears to be chronic, near his baseline - sodium levels remaining stable, 132 today - Monitor BMP (4) Hypokalemia: Code(s): E87.6 - Hypokalemia Status: Resolved Assessment and Plan: -he was started on KCL supplementation on 09/09/21 -started trending upward yesterday -hold KCL today, recheck this afternoon -hold on Lokelma for now due to patient's pancolitis and diarrhea (5) Protein calorie malnutrition: Code(s): E46 - Unspecified protein-calorie malnutrition Status: Acute Assessment and Plan: Patient with poor appetite and extremely decreased p.o. intake -continue Megace -appreciate dietitian evaluation -continue dietary supplements (6) Dementia: Code(s): F03.90 - Unspecified dementia without behavioral disturbance Status: Acute Assessment and Plan: Daughter reports patient was diagnosed with dementia in July -Not currently on any medications -Pt A&O x3 on evaluation today (7) Failure to thrive: Status: Acute Assessment and Plan: Patient with overall diminished oral intake, somnolence, overall decline - Plan as above - Daughter/POA has been in contact with hospice for informational meeting, however wished to defer until colonoscopy. Will revisit this. - Continue to encourage PO intake - PT/OT (8) Orthostatic hypotension: Code(s): I95.1 - Orthostatic hypotension Status: Acute Assessment and Plan: Patient became dizzy 09/18/21 while participating in PT 25 point drop in BP from standing to supine position. Administered 500 cc IV fluid bolus however still very orthostatic today CARLEE gilbert Fall precautions I believe this to be secondary to dehydration and decreased PO intake. He is still not eating/drink so I have restarted maintenance fluids which will hopefully help with his BP monitor daily orthostatics Subjective Date/time seen: 09/19/21 10:20 Interval history: Date of service: 09/15/2021 Philip Hernández is a 75-year-old male with a history of CVA and CAD who is seen in follow-up for pancolitis. This is his 3rd hospitalization for pancolitis over the past 6 months. Pt states he feels fine today other than he is cold. Still has no appetite. Was orthostatic this mor
[2021-09-19] MEDS: SODIUM CHLORIDE 0.9% IV 1,000 ML 80 ML IV CONT (10:27)
[2021-09-19] MEDS: predniSONE 20 MG TABLET 30 MG PO (11:26)
[2021-09-19 11:35] LABS: Anion Gap 3 mmol/L (8-16); Blood Urea Nitrogen 15 mg/dL (9-20); Calcium 8.1 mg/dL (8.4-10.2); Carbon Dioxide 22 mmol/L (22-30); Chloride 105 mmol/L (98-107); Estimated CRCL calculation 58 ml/min; Estimated Glomerular Filt Rate > 60; Glucose 151 mg/dL (65-110); Potassium 4.5 mmol/L (3.4-5.0); Sodium 130 mmol/L (137-145)
[2021-09-19] MEDS: MELATONIN 3 MG TABLET PO (22:56)
[2021-09-20] VITALS (11 sets, daily range): BP systolic 72–145; BP diastolic 49–82; PULSE 53–89; RESP 15–24; TEMP 35.8–36.8; O2SAT 96–100
[2021-09-20 06:40] LABS: Hematocrit 35.9 % (42.0-52.0); Hemoglobin 11.7 g/dL (14.0-18.0); Mean Corpuscular HGB Conc 32.6 g/dl (32-36); Mean Corpuscular Volume 92.1 fl (80-100); Mean Platelet Volume 9.2 fl (7.4-10.4); Platelet Count Result 332 k/mm3 (150-375); Red Cell Distribution Width 15.9 % (11.5-14.5); White Blood Count 14.4 K/mm3 (4.5-10.0)
[2021-09-20 07:05] LABS: Anion Gap 4 mmol/L (8-16); Blood Urea Nitrogen 16 mg/dL (9-20); Calcium 8.4 mg/dL (8.4-10.2); Carbon Dioxide 23 mmol/L (22-30); Chloride 102 mmol/L (98-107); Estimated CRCL calculation 52 ml/min; Estimated Glomerular Filt Rate > 60; Glucose 103 mg/dL (65-110); Potassium 4.4 mmol/L (3.4-5.0); Sodium 129 mmol/L (137-145)
--- NOTE | 2021-09-20 08:34 | PM.IMPN ---
Progress Note: A&P Assessment and Plan (1) Chronic pancolonic ulcerative colitis: Code(s): K51.00 - Ulcerative (chronic) pancolitis without complications Status: Acute Assessment and Plan: -Patient with pancolitis noted on CT on presentation. Third hospitalization for pancolitis in 6 months (at outside facility) -Completed 5 days of Levaquin and Flagyl. Antibiotics discontinued on 09/12 per ID PharmD recommendations. Stool cultures negative. -He has been seen in consultation by Gastroenterology -colonoscopy 09/17 showed ulcerative chronic pancolitis throughout the colon. Biopsies collected and do confirm UC -continue low-fiber diet -Continue mesalamine 1000 mg qid started on 09/17 -Was on Solu-Medrol 40 mg q.8 hours. Wean to oral prednisone taper based on GI recommendations. -09/18/21: Spoke with daughter/POA via phone. She states patient was diagnosed with ulcerative colitis in March and was supposedly taking mesalamine although this diagnosis or medication is not evident in his records and this was not reported to me by family when discussing possibility of ulcerative colitis prior to colonoscopy. -09/20/21: spoke w/ POA again and Dr. Goodrich. Plan is for EGD today to assess for other causes of his decreased appetite and malnutrition. After EGD will discuss possibility of feeding tube. POA is not ready to discuss hospice at this time. (2) Acute GI bleeding: Code(s): K92.2 - Gastrointestinal hemorrhage, unspecified Status: Acute Assessment and Plan: ER notes indicate he was having bright red blood in his stool -likely secondary to pancolitis -stool occult blood test positive -H&H remaining stable. No further episodes of bleeding. -appreciate GI consultation (3) Hyponatremia: Code(s): E87.1 - Hypo-osmolality and hyponatremia Status: Acute Assessment and Plan: Appears to be chronic, near his baseline - sodium levels remaining stable - Monitor BMP (4) Hypokalemia: Code(s): E87.6 - Hypokalemia Status: Resolved Assessment and Plan: -he was started on KCL supplementation on 09/09/21 -started trending upward -stopped KCL supplement -K normal today, 4.4 (5) Protein calorie malnutrition: Code(s): E46 - Unspecified protein-calorie malnutrition Status: Acute Assessment and Plan: Patient with poor appetite and extremely decreased p.o. intake -continue Megace -appreciate dietitian evaluation -continue dietary supplements -EGD today as above (6) Dementia: Code(s): F03.90 - Unspecified dementia without behavioral disturbance Status: Acute Assessment and Plan: Daughter reports patient was diagnosed with dementia in July -Not currently on any medications -Pt A&O x3 on evaluation today (7) Failure to thrive: Status: Acute Assessment and Plan: Patient with overall diminished oral intake, somnolence, overall decline - Plan as above - Daughter/POA has been in contact with hospice for informational meeting, however now wishes to defer this for now until after EGD and possibly 6 weeks into starting a biologic. We have discussed a feeding tube. - Continue to encourage PO intake - PT/OT (8) Orthostatic hypotension: Code(s): I95.1 - Orthostatic hypotension Status: Acute Assessment and Plan: Patient became dizzy 09/18/21 while participating in PT 25 point drop in BP from standing to supine position. Administered 500 cc IV fluid bolus however still very orthostatic CARLEE hose Fall precautions I believe this to be secondary to dehydration and decreased PO intake. He is still not eating/drink so I have restarted maintenance fluids which will hopefully help with his BP monitor daily orthostatics Subjective Date/time seen: 09/20/21 08:34 Interval history: Philip Hernández is a 75-year-old male with a history of CVA and CAD who is seen i
[2021-09-20] MEDS: SODIUM CHLORIDE 0.9% IV 1,000 ML 75 ML IV CONT (10:16)
[2021-09-20] MEDS: COLLAGENASE OINT 30 GM TUBE 1 APPLIC TOPICAL (10:16)
--- NOTE | 2021-09-20 10:50 | PCOTNOTE ---
Attempted to see patient this am, however patient sleeping upon entering with covers pulled over head. Encouraged patient to participate however patient responded shaking head while keeping eyes closed.
--- NOTE | 2021-09-20 12:18 | WPDANESEPPF ---
Anes - Initial Pre Proc Eval Procedure: Operation Date: 09/17/21 14:15 Proposed Procedures p Colonoscopy - Jaydon Goodrich MD Operation Date: 09/20/21 13:00 Proposed Procedures p Esophagogastroduodenoscopy - Jaydon Goodrich MD Date/Time: 09/20/21 12:18 Surgeon: Huma Dover PA-C Pre Op Diagnosis: GI BLEED, PANCOLITIS Patient Data Age: 75 Gender: M Height: 1.68 m Weight: 65.9 kg Last Vital Signs Temp 36.6 C 09/20/21 03:32 Pulse 71 09/20/21 03:32 Resp 20 09/20/21 03:32 BP 92/62 L 09/20/21 10:05 Pulse Ox 99 09/20/21 03:32 O2 Del Method Room Air 09/20/21 07:57 Allergies Allergy/AdvReac Type Severity Reaction Status Date / Time shellfish derived Allergy Hives Verified 09/17/21 13:16 Home Medications Medication Instructions Recorded Confirmed Type acetaminophen 325 mg tablet 650 mg PO 6XD PRN Pain, Mild 09/04/21 09/04/21 History famotidine 20 mg tablet 20 mg PO BID 09/04/21 09/04/21 History folic acid 1 mg tablet 1 mg PO DAILY 09/04/21 09/04/21 History loperamide 2 mg capsule 2 mg PO QID PRN Diarrhea 09/04/21 09/04/21 History midodrine 2.5 mg tablet 7.5 mg PO QID 09/04/21 09/04/21 History Laboratory Tests 09/20/21 09/20/21 05:57 05:57 WBC 14.4 K/mm3 H K/mm3 (4.5-10.0) RBC 3.90 M/mm3 L M/mm3 (4.6-6.20) Hgb 11.7 g/dL L g/dL (14.0-18.0) Hct 35.9 % L % (42.0-52.0) MCV 92.1 fl fl (80-100) MCH 30.0 pg pg (26-34) MCHC 32.6 g/dl g/dl (32-36) RDW 15.9 % H % (11.5-14.5) Plt Count 332 k/mm3 k/mm3 (150-375) MPV 9.2 fl fl (7.4-10.4) Sodium 129 mmol/L L mmol/L (137-145) Potassium 4.4 mmol/L mmol/L (3.4-5.0) Chloride 102 mmol/L mmol/L (98-107) Carbon Dioxide 23 mmol/L mmol/L (22-30) Anion Gap 4 mmol/L L mmol/L (8-16) BUN 16 mg/dL mg/dL (9-20) Creatinine 1.00 mg/dL mg/dL (0.7-1.3) Estim Creat Clear Calc 52 ml/min ml/min Estimated GFR > 60 (59 - ) Glucose 103 mg/dL mg/dL (65-110) Calcium 8.4 mg/dL mg/dL (8.4-10.2) Patient hx anesthesia problems: none Family hx anesthesia problems: none Results Review: All pre-operative results and documents have been reviewed as part of the pre-operative evaluation. [facility] Past Medical History Medical History (Updated 09/18/21 @ 13:43 by Mary Tomlinson PA-C) CVA (cerebral vascular accident) Dementia Failure to thrive Hypertension Myocardial infarction Protein calorie malnutrition Social History Social History (Updated 02/22/21 @ 12:34 by Nya Landrum MD) Smoking status: Former smoker Tobacco type: pipe and cigars Alcohol intake: never Substance use: never Substance use type: does not use Spiritual care concerns: No Anes - Eval Final PreProcedure Day of Procedure 09/20/21 12:18 Patient weight: normal Heart: regular rate and rhythm Lungs: clear to auscultation Airway: Mallampati scale class II Neurological: alert and oriented Last oral intake: >/= 8 hours ASA classification: IV Emergent: no Anesthetic plan: proceed Anesthesia type and monitoring: general GIVS and standard monitoring Results Review: All pre-operative results and documents have been reviewed as part of the pre-operative evaluation. Informed Consent: The patient's anesthetic plan and its attendant risks and benefits were discussed with the patient/family/POA. Questions were solicited and answers provided to the satisfaction of the patient/family/POA.
[2021-09-20] MEDS: LACTATED RINGERS 1,000 ML 150 ML IV CONT (12:21)
--- NOTE | 2021-09-20 14:00 | PCNFU ---
Nutrition Follow-Up Complete: Inadequate energy intake related to poor appetite as evidenced by meal intake less than 50%. Goal: Adequate intake of at least 75% of meals. Pt is not meeting goal. Pt current nutrition is regular diet. Last recorded weight is 60.9 kg. Weight is decreasing. Bowel Motility: + BM 09/20 Labs Reviewed: Hgb:11.7, Hct:35.9, Na: 129 Meds Noted: megace, zofran, pentasa, proamatine, folic acid Skin: WNL Additional Notes: Continue with current diet order. Recommend Ensure Compact BID: 220 kcals, 9 grams protein per bottle. Pt had EDG today and oral intake has been poor since admission. Discussion with MD regarding possible Tube feeding. Agree with diet orders. Monitor intake, diet order, tolerance, wt, labs. Follow up in 3 days.
[2021-09-20] MEDS: MEGESTROL ACETATE (*CHEMO) 40 MG TABLET PO (16:36)
[2021-09-20] MEDS: MIDODRINE HCL 2.5 MG TABLET 7.5 MG PO ×2 (16:36→21:09)
[2021-09-20] MEDS: MESALAMINE 250 MG CAP CR 1000 MG PO ×2 (16:36→21:08)
[2021-09-20] MEDS: LACTASE 3,000 UNIT TABLET 3000 UNIT PO (16:36)
--- NOTE | 2021-09-20 21:06 | PC.NURSE ---
Pt having frequent small output (50-150ml), post void bladder scan shows 154ml max
[2021-09-20] MEDS: MELATONIN 3 MG TABLET PO (21:12)
[2021-09-21 00:07] LABS: Calprotectin, Stool 3890 mcg/g
[2021-09-21] MEDS: SODIUM CHLORIDE 0.9% IV 1,000 ML 75 ML IV CONT ×2 (02:08→16:41)
[2021-09-21 04:01] VITALS: BP 104/52; PULSE 82; RESP 16; TEMP 36.4; O2SAT 99
[2021-09-21 05:36] LABS: Basophils Percent Auto 0.1 % (0.2-1.2); Eosinophils Percent Auto 0.2 % (0-4.4); Hematocrit 31.8 % (42.0-52.0); Hemoglobin 10.1 g/dL (14.0-18.0); Immature Granulocyte Absolute 0.07 K/mm3 (0.00-0.031); Immature Granulocyte Percent A 0.8 % (0-0.5); Lymphocytes Absolute Auto 0.96 K/mm3 (0.9-3.2); Lymphocytes Percent Auto 10.4 % (18.3-44.2); Mean Corpuscular HGB Conc 31.8 g/dl (32-36); Mean Corpuscular Hemoglobin 29.4 pg (26-34); Mean Corpuscular Volume 92.7 fl (80-100); Mean Platelet Volume 8.8 fl (7.4-10.4); Monocytes Absolute Auto 0.4 K/mm3 (0.1-0.6); Monocytes Percent Auto 4.8 % (2.6-8.5); Neutrophils Absolute Auto 7.7 K/mm3 (1.3-6.7); Neutrophils Percent Auto 83.7 % (45.5-73.1); Platelet Count Result 253 k/mm3 (150-375); Red Blood Count 3.43 M/mm3 (4.6-6.20); Red Cell Distribution Width 15.8 % (11.5-14.5); White Blood Count 9.2 K/mm3 (4.5-10.0)
[2021-09-21 05:52] LABS: Alanine Aminotransferase 63 U/L (6-50); Albumin Level 2.4 g/dL (3.5-5.1); Alkaline Phosphatase 80 U/L (38-126); Anion Gap 2 mmol/L (8-16); Aspartate Amino Transferase 58 U/L (17-59); Bilirubin,Total 0.4 mg/dL (0.2-1.3); Blood Urea Nitrogen 15 mg/dL (9-20); Calcium 7.6 mg/dL (8.4-10.2); Carbon Dioxide 21 mmol/L (22-30); Chloride 108 mmol/L (98-107); Estimated CRCL calculation 62 ml/min; Estimated Glomerular Filt Rate > 60; Glucose 87 mg/dL (65-110); Potassium 3.8 mmol/L (3.4-5.0); Sodium 131 mmol/L (137-145)
--- NOTE | 2021-09-21 06:43 | WPDGIPROGNO ---
Progress Note: A&P Assessment and Plan (1) Pancolitis: Code(s): K51.00 - Ulcerative (chronic) pancolitis without complications Status: Acute Assessment and Plan: given the fact that he has apparently had evidence of beverly colitis for at least 6 months, this suggests that he has inflammatory bowel disease, most likely ulcerative colitis. Colonoscopy would be very helpful 09/19/2021 biopsies do confirm ulcerative colitis. This severely suggested he may in fact at some point need a biologic. I am not sure how that could be managed at home. I think we can discontinue the intravenous steroids and started tapering dose of prednisone, 40 mg/ day for 1 week; then 30 mg etcetera 09/21/[address] Montaño. She knows that he had been started on mesalamine. He was then in the hospital, then in the rehab center he is now in alf. Because he has been in and out of various institutions she believes that somewhere along the line mesalamine was discontinued. She found records that indicate he was on 500 mg 3 times a day in June, but believes that Some provider noted that and stated that they were going to increase his dose. It was not listed as 1 of his medications at admission and it appears that he has been off of it for at least a month or so. At any rate I explained that mesalamine is the 1st step in treating ulcer colitis. If that fails we would need to consider a biologic but at this point is too soon to know whether that is necessary. fecal calprotectin level is 3890. This is of course high but will serve as a baseline to guide us in therapy and follow disease activity. (2) Acute GI bleeding: Code(s): K92.2 - Gastrointestinal hemorrhage, unspecified Status: Acute Assessment and Plan: no further bleeding. His hemoglobin today is higher than yesterday. It is now 10.7 and 32.7 09/19/2021 Hemoglobin today is 12.9 (3) Protein calorie malnutrition: Code(s): E46 - Unspecified protein-calorie malnutrition Status: Acute Assessment and Plan: he states that he has lost 40 lb. His albumin is 1.9. He also has lymphopenia supporting protein calorie malnutrition 09/21/2021 albumin actually has increased, though his oral intake is still negligible. The daughter is considering gastrostomy tube feedings and other options. Subjective Date/time seen: 09/19/21? 07:01 Patient has no complaints today.? No bloody stools have been noted.? Biopsies do confirm that he has severe ulcerative colitis.? Apparently the family had been aware of that.? When I asked the patient if he had been told in the past that he had colitis he nodded 'yes' but he cannot recall anything about medications? which he may have taken. ? I see in the hospitalist's notes that the family recalls him being on mesalamine earlier in the year.? Apparently he was treated somewhere else. 09/21/21 06:43 I spoke with the patient's daughter, Heather, who is the POA for the patient yesterday. She described how he was initially diagnosed with ulcerative colitis by Dr. Montaño. She knows that he had been started on mesalamine. He was then in the hospital, then in the rehab center he is now in alf. Because he has been in and out of various institutions she believes that somewhere along the line mesalamine was discontinued. She found records that indicate he was on 500 mg 3 times a day in June, but believes that Some provider noted that and stated that they were going to increase his dose. It was not listed as 1 of his medications at admission and it appears that he has been off of it for at least a month or so. At any rate I explained that mesalamine is the 1st step in treating ulcer colitis. If that fails we would need to consider a biologic but at this point is too soon to know whether that is necessary. The main issue now courses his nutrition. She states he has always been a picky eater but lately has not seem inter
[2021-09-21 08:00] VITALS: BP 104/68; BP 140/68
[2021-09-21] MEDS: MEGESTROL ACETATE (*CHEMO) 40 MG TABLET PO ×3 (08:44→16:44)
[2021-09-21] MEDS: FOLIC ACID 1 MG TABLET PO (08:44)
[2021-09-21] MEDS: MIDODRINE HCL 2.5 MG TABLET 7.5 MG PO ×4 (08:44→20:29)
[2021-09-21] MEDS: LACTASE 3,000 UNIT TABLET 3000 UNIT PO ×3 (08:45→16:43)
[2021-09-21] MEDS: MESALAMINE 250 MG CAP CR 1000 MG PO ×4 (08:45→20:28)
[2021-09-21] MEDS: COLLAGENASE OINT 30 GM TUBE 1 APPLIC TOPICAL (08:46)
[2021-09-21] MEDS: predniSONE 20 MG TABLET 30 MG PO (08:46)
--- NOTE | 2021-09-21 08:58 | PM.IMPN ---
Progress Note: A&P Assessment and Plan (1) Chronic pancolonic ulcerative colitis: Code(s): K51.00 - Ulcerative (chronic) pancolitis without complications Status: Acute Assessment and Plan: -Patient with pancolitis noted on CT on presentation. Third hospitalization for pancolitis in 6 months (at outside facility) -Completed 5 days of Levaquin and Flagyl. Antibiotics discontinued on 09/12 per ID PharmD recommendations. Stool cultures negative. -He has been seen in consultation by Gastroenterology -colonoscopy 09/17 showed ulcerative chronic pancolitis throughout the colon. Biopsies collected and do confirm UC -continue low-fiber diet -Continue mesalamine 1000 mg qid started on 09/17 -Was on Solu-Medrol 40 mg q.8 hours. Wean to oral prednisone taper based on GI recommendations. -09/18/21: Spoke with daughter/DASHAWN via phone. She states patient was diagnosed with ulcerative colitis in March and was supposedly taking mesalamine although this diagnosis or medication is not evident in his records and this was not reported to me by family when discussing possibility of ulcerative colitis prior to colonoscopy. -09/20/21: spoke w/ ALANATano again and Dr. Goodrich. Plan is for EGD today to assess for other causes of his decreased appetite and malnutrition. After EGD will discuss possibility of feeding tube. DASHAWN is not ready to discuss hospice at this time. -09/21/21: EGD fairly unremarkable. Dr. Goodrich has had in depth conversations with family, as have I. The daughter/POA Heather is currently debating G tube vs hospice and would like to see how he does over the next day or two and if he starts eating again. (2) Acute GI bleeding: Code(s): K92.2 - Gastrointestinal hemorrhage, unspecified Status: Acute Assessment and Plan: ER notes indicate he was having bright red blood in his stool -likely secondary to pancolitis -stool occult blood test positive -H&H remaining stable. No further episodes of bleeding. -appreciate GI consultation (3) Failure to thrive: Status: Acute Assessment and Plan: Patient with overall diminished oral intake, somnolence, overall decline - Plan as above - Daughter/DASHAWN has been in contact with hospice for informational meeting, however now wishes to defer this for now until after EGD and possibly 6 weeks into starting a biologic. We have discussed a feeding tube. - Continue to encourage PO intake - PT/OT (4) Protein calorie malnutrition: Code(s): E46 - Unspecified protein-calorie malnutrition Status: Acute Assessment and Plan: Patient with poor appetite and extremely decreased p.o. intake -continue Megace -appreciate dietitian evaluation -continue dietary supplements -EGD reviewed (5) Hyponatremia: Code(s): E87.1 - Hypo-osmolality and hyponatremia Status: Acute Assessment and Plan: Appears to be chronic, near his baseline - sodium levels remaining stable - Monitor BMP (6) Hypokalemia: Code(s): E87.6 - Hypokalemia Status: Resolved Assessment and Plan: -he was started on KCL supplementation on 09/09/21 -started trending upward -stopped KCL supplement -K normal today, 3.8 (7) Dementia: Code(s): F03.90 - Unspecified dementia without behavioral disturbance Status: Acute Assessment and Plan: Daughter reports patient was diagnosed with dementia in July -Not currently on any medications -Pt A&O x3 on evaluation today (8) Orthostatic hypotension: Code(s): I95.1 - Orthostatic hypotension Status: Acute Assessment and Plan: Patient became dizzy 09/18/21 while participating in PT 25 point drop in BP from standing to supine position. Administered 500 cc IV fluid bolus however still very orthostatic CARLEE hose Fall precautions I believe this to be secondary to dehydration and decreased PO intake. He is still not eating/drink much at all
--- NOTE | 2021-09-21 13:01 | PCNFU ---
Nutrition Follow-Up Complete: Suboptimal po intake related to reduced appetite as evidenced by 25% meal intake. Goal: Adequate meal intake of at least 50% of meals. Pt diet was advanced and pt is progressing towards goal. Pt current nutrition is regular with Ensure Compact BID: 220 kcals, 9 grams protein per bottle. Last recorded weight is 60.9 kg. Weight is decreasing. Bowel Motility: + BM 09/20 Labs Reviewed: Hgb:10.1, Hct:31.8, Alb:2.4, Na:131 Meds Noted: megace, zofran, pentasa, proamatine, folic acid, lactaid Skin: WNL Additional Notes: Continue with current diet order. Recommend Ensure Compact sent TID since pt is drinking them. Pt had EDG yesterday. Pt diet order was advanced to regular and curent intake is less than 50%. Discussion with MD regarding possible Tube feeding after the weekend. Agree with diet orders. Monitor intake, weight, diet order, and labs and follow up in 3 days.
--- NOTE | 2021-09-21 13:11 | PCNSR ---
On 09/21/21, the student, Anamaria Rodriguez, provided care and completed [facility] documentation on this patient. I have reviewed the student's documentation and agree with the findings.
[2021-09-21 14:30] VITALS: BP 98/51; PULSE 84; RESP 18; TEMP 36.4; O2SAT 99
[2021-09-21] MEDS: MELATONIN 3 MG TABLET PO (20:29)
[2021-09-21 21:18] VITALS: BP 106/63; PULSE 77; RESP 21; TEMP 36.2; O2SAT 100
[2021-09-21 21:19] VITALS: BP 121/85; BP 93/68; PULSE 54; PULSE 85; RESP 21; TEMP 36.1; TEMP 36.3; O2SAT 100
[2021-09-21 21:20] VITALS: BP 106/63; PULSE 77; RESP 21; TEMP 36.2; O2SAT 100
[2021-09-22 05:35] VITALS: BP 126/82; PULSE 73; RESP 21; TEMP 36.4; O2SAT 100
[2021-09-22] MEDS: LACTASE 3,000 UNIT TABLET 3000 UNIT PO ×3 (08:37→17:13)
[2021-09-22] MEDS: MIDODRINE HCL 2.5 MG TABLET 7.5 MG PO ×4 (08:38→19:59)
[2021-09-22] MEDS: MEGESTROL ACETATE (*CHEMO) 40 MG TABLET PO ×3 (08:38→17:13)
[2021-09-22] MEDS: predniSONE 10 MG TABLET 30 MG PO (08:39)
[2021-09-22] MEDS: predniSONE 20 MG TABLET 30 MG PO (08:39)
[2021-09-22] MEDS: MESALAMINE 250 MG CAP CR 1000 MG PO ×4 (08:40→19:59)
[2021-09-22] MEDS: FOLIC ACID 1 MG TABLET PO (08:40)
[2021-09-22] MEDS: COLLAGENASE OINT 30 GM TUBE 1 APPLIC TOPICAL (08:41)
--- NOTE | 2021-09-22 09:31 | PM.IMPN ---
Progress Note: A&P Assessment and Plan (1) Chronic pancolonic ulcerative colitis: Code(s): K51.00 - Ulcerative (chronic) pancolitis without complications Status: Acute Assessment and Plan: -Patient with pancolitis noted on CT on presentation. Third hospitalization for pancolitis in 6 months (at outside facility) -Completed 5 days of Levaquin and Flagyl. Antibiotics discontinued on 09/12 per ID PharmD recommendations. Stool cultures negative. -He has been seen in consultation by Gastroenterology -colonoscopy 09/17 showed ulcerative chronic pancolitis throughout the colon. Biopsies collected and do confirm UC -continue low-fiber diet -Continue mesalamine 1000 mg qid started on 09/17 -Was on Solu-Medrol 40 mg q.8 hours. Wean to oral prednisone taper based on GI recommendations. -09/18/21: Spoke with daughter/DASHAWN via phone. She states patient was diagnosed with ulcerative colitis in March and was supposedly taking mesalamine although this diagnosis or medication is not evident in his records and this was not reported to me by family when discussing possibility of ulcerative colitis prior to colonoscopy. -09/20/21: spoke w/ ALANAA again and Dr. Goodrich. Plan is for EGD today to assess for other causes of his decreased appetite and malnutrition. After EGD will discuss possibility of feeding tube. DASHAWN is not ready to discuss hospice at this time. -09/21/21: EGD fairly unremarkable. Dr. Goodrich has had in depth conversations with family, as have I. The daughter/POA Heather is currently debating G tube vs hospice and would like to see how he does over the next day or two and if he starts eating again. 09/22: Patient continues to be on interested in p.o. intake, will discuss hospice versus G tube with family again (2) Acute GI bleeding: Code(s): K92.2 - Gastrointestinal hemorrhage, unspecified Status: Acute Assessment and Plan: ER notes indicate he was having bright red blood in his stool -likely secondary to pancolitis -stool occult blood test positive -H&H remaining stable. No further episodes of bleeding. -appreciate GI consultation 09/22: Continue mesalamine for now, appreciate GI consultation, patient may need a biologic agent, will defer to GI for further management (3) Failure to thrive: Status: Acute Assessment and Plan: Patient with overall diminished oral intake, somnolence, overall decline - Plan as above - Daughter/POA has been in contact with hospice for informational meeting, however now wishes to defer this for now until after EGD and possibly 6 weeks into starting a biologic. We have discussed a feeding tube. - Continue to encourage PO intake - PT/OT (4) Protein calorie malnutrition: Code(s): E46 - Unspecified protein-calorie malnutrition Status: Acute Assessment and Plan: Patient with poor appetite and extremely decreased p.o. intake -continue Megace -appreciate dietitian evaluation -continue dietary supplements -EGD reviewed (5) Hyponatremia: Code(s): E87.1 - Hypo-osmolality and hyponatremia Status: Acute Assessment and Plan: Appears to be chronic, near his baseline - sodium levels remaining stable - Monitor BMP 09/22: Sodium is 131, continue current management (6) Hypokalemia: Code(s): E87.6 - Hypokalemia Status: Resolved Assessment and Plan: -he was started on KCL supplementation on 09/09/21 -started trending upward -stopped KCL supplement 09/22: Potassium 3.8, continue current management (7) Dementia: Code(s): F03.90 - Unspecified dementia without behavioral disturbance Status: Acute Assessment and Plan: Daughter reports patient was diagnosed with dementia in July -Not currently on any medications (8) Orthostatic hypotension: Code(s): I95.1 - Orthostatic hypotension Status: Acute Assessment and Plan: Patient became di
[2021-09-22] MEDS: SODIUM CHLORIDE 0.9% IV 1,000 ML 75 ML IV CONT (11:53)
[2021-09-22 14:00] VITALS: BP 111/57; PULSE 83; RESP 16; TEMP 36.2; O2SAT 97
[2021-09-22 14:37] VITALS: BP 111/57; PULSE 83
[2021-09-22 14:44] VITALS: BP 79/45; PULSE 92
--- NOTE | 2021-09-22 19:23 | PC.NURSE ---
IV fluids paused, pt has no IV access. aware and will reassess tomorrow. Per Crissy King RN
[2021-09-22] MEDS: MELATONIN 3 MG TABLET PO (19:59)
[2021-09-22 22:33] VITALS: BP 106/76; PULSE 58; RESP 21; TEMP 36.5; O2SAT 100
[2021-09-22 22:41] LABS: Basophils Percent Auto 0.1 % (0.2-1.2); Hematocrit 35.4 % (42.0-52.0); Hemoglobin 11.4 g/dL (14.0-18.0); Immature Granulocyte Percent A 0.7 % (0-0.5); Lymphocytes Absolute Auto 0.75 K/mm3 (0.9-3.2); Lymphocytes Percent Auto 5.1 % (18.3-44.2); Mean Corpuscular HGB Conc 32.2 g/dl (32-36); Mean Corpuscular Hemoglobin 29.6 pg (26-34); Mean Corpuscular Volume 91.9 fl (80-100); Mean Platelet Volume 8.8 fl (7.4-10.4); Monocytes Absolute Auto 0.4 K/mm3 (0.1-0.6); Neutrophils Absolute Auto 13.3 K/mm3 (1.3-6.7); Neutrophils Percent Auto 91.1 % (45.5-73.1); Platelet Count Result 345 k/mm3 (150-375); Red Blood Count 3.85 M/mm3 (4.6-6.20); Red Cell Distribution Width 16.1 % (11.5-14.5); White Blood Count 14.6 K/mm3 (4.5-10.0)
[2021-09-22 22:53] LABS: Alanine Aminotransferase 75 U/L (6-50); Albumin Level 3.1 g/dL (3.5-5.1); Alkaline Phosphatase 113 U/L (38-126); Anion Gap 5 mmol/L (8-16); Aspartate Amino Transferase 54 U/L (17-59); Bilirubin,Total 0.2 mg/dL (0.2-1.3); Blood Urea Nitrogen 13 mg/dL (9-20); Calcium 8.1 mg/dL (8.4-10.2); Carbon Dioxide 23 mmol/L (22-30); Chloride 104 mmol/L (98-107); Estimated CRCL calculation 70 ml/min; Estimated Glomerular Filt Rate > 60; Glucose 108 mg/dL (65-110); Potassium 4.1 mmol/L (3.4-5.0); Sodium 132 mmol/L (137-145)
[2021-09-23] VITALS (10 sets, daily range): BP systolic 94–168; BP diastolic 59–88; PULSE 52–91; RESP 16–21; TEMP 36.1–37; O2SAT 99–100
[2021-09-23] MEDS: MESALAMINE 250 MG CAP CR 1000 MG PO ×4 (09:06→20:37)
[2021-09-23] MEDS: MIDODRINE HCL 2.5 MG TABLET 7.5 MG PO ×4 (09:06→20:37)
[2021-09-23] MEDS: LACTASE 3,000 UNIT TABLET 3000 UNIT PO ×3 (09:07→16:16)
[2021-09-23] MEDS: FOLIC ACID 1 MG TABLET PO (09:07)
[2021-09-23] MEDS: MEGESTROL ACETATE (*CHEMO) 40 MG TABLET PO ×3 (09:08→16:16)
[2021-09-23] MEDS: predniSONE 10 MG TABLET 30 MG PO (09:08)
[2021-09-23] MEDS: COLLAGENASE OINT 30 GM TUBE 1 APPLIC TOPICAL (09:09)
[2021-09-23] MEDS: predniSONE 20 MG TABLET 30 MG PO (09:10)
--- NOTE | 2021-09-23 10:02 | PM.IMPN ---
Progress Note: A&P Assessment and Plan (1) Chronic pancolonic ulcerative colitis: Code(s): K51.00 - Ulcerative (chronic) pancolitis without complications Status: Acute Assessment and Plan: Pancolitis with underlying ulcerative colitis (confirmed on biopsy from colonoscopy done September 17) being treated with mesalamine, did receive a 5 day course of Levaquin and Flagyl upon admission before stool cultures came back negative and these were discontinued, appreciate GI consultation, they recommend outpatient management with possible biologic, however, rectal bleeding has completely resolved Continue prednisone taper per GI (2) Acute GI bleeding: Code(s): K92.2 - Gastrointestinal hemorrhage, unspecified Status: Acute Assessment and Plan: Resolved, hemoglobin stable at 11.4 today, no further reports of blood in stool (3) Failure to thrive: Status: Acute Assessment and Plan: No specific etiology, ulcerative colitis flare appears to be resolving, p.o. intake is not improving, suspect this is secondary to patient's underlying dementia with a multifactorial etiology (4) Protein calorie malnutrition: Code(s): E46 - Unspecified protein-calorie malnutrition Status: Acute Assessment and Plan: Appreciate Nutrition consultation Currently on Megace and steroids with little appetite (5) Hyponatremia: Code(s): E87.1 - Hypo-osmolality and hyponatremia Status: Acute Assessment and Plan: Unsure of specific etiology, likely multifactorial, but appears asymptomatic with a baseline around 130-132 (6) Hypokalemia: Code(s): E87.6 - Hypokalemia Status: Resolved Assessment and Plan: Resolved (7) Dementia: Code(s): F03.90 - Unspecified dementia without behavioral disturbance Status: Acute Assessment and Plan: Daughter reports patient was diagnosed with dementia in July Not currently on any medications (8) Orthostatic hypotension: Code(s): I95.1 - Orthostatic hypotension Status: Acute Assessment and Plan: Appears to be quite severe, very symptomatic with significant drops in systolic and diastolic blood pressures with both sitting and standing Currently receiving midodrine with little improvement in symptoms Will add salt tabs and give 1L NS bolus and recheck orthostatics + BMP at 1pm Consider fludrocortisone if symptoms continue, suspect this is a large factor in lethargy and decreased appetite, unsure of etiology? Consider nephrology c/s for hyponatremia if no improvement with salt tabs Subjective Date/time seen: 09/23/21 10:02 Interval history: Still with significant orthostatic symptoms, lightheadedness and dizziness upon sitting up. No overnight events noted. No chest pain or shortness of breath. No nausea, vomiting or diarrhea. No fevers or chills. No blood in his stool. Review of Systems Review of Systems: 12 point review of systems was assessed and was negative except as noted in the HPI Exam Narrative: General: No acute distress, alert and oriented per baseline, sitting up decided bed, eating breakfast, seems a little lightheaded and weak HEENT: Atraumatic, normocephalic, mucous membranes moist CV: Regular rate and rhythm, S1, S2 Lungs: Clear to auscultation bilaterally, no rales or crackles noted, no wheezes, good air entry Abdomen: Soft, nontender, nondistended Extremities: Normal to inspection Skin: No rashes noted, no lesions or wounds seen Objective Data Vital Signs Vital Signs: Vital Signs - 24 hr 09/22/21 14:00 09/22/21 14:37 09/22/21 14:44 Temperature 97.2 F L Pulse Rate 83 83 92 Respiratory Rate 16 Blood Pressure 111/57 L 111/57 L 79/45 L Pulse Oximetry 97 Oxygen Delivery 09/22/21 20:00 09/22/21 22:33 09/23/21 06:00 Temperature 97.7 F 98.6 F Pulse Rate 58 L 78 Respiratory Rate 21 H 20 Blood Pressure 10
[2021-09-23 10:31] LABS: Basophils Percent Auto 0.1 % (0.2-1.2); Eosinophils Absolute Auto 0.1 K/mm3 (0-0.3); Eosinophils Percent Auto 1.2 % (0-4.4); Hematocrit 32.4 % (42.0-52.0); Hemoglobin 10.6 g/dL (14.0-18.0); Immature Granulocyte Absolute 0.07 K/mm3 (0.00-0.031); Immature Granulocyte Percent A 0.6 % (0-0.5); Lymphocytes Absolute Auto 1.45 K/mm3 (0.9-3.2); Lymphocytes Percent Auto 12.3 % (18.3-44.2); Mean Corpuscular HGB Conc 32.7 g/dl (32-36); Mean Corpuscular Hemoglobin 29.7 pg (26-34); Mean Corpuscular Volume 90.8 fl (80-100); Mean Platelet Volume 8.7 fl (7.4-10.4); Monocytes Absolute Auto 0.5 K/mm3 (0.1-0.6); Monocytes Percent Auto 4.1 % (2.6-8.5); Neutrophils Absolute Auto 9.7 K/mm3 (1.3-6.7); Neutrophils Percent Auto 81.7 % (45.5-73.1); Platelet Count Result 325 k/mm3 (150-375); Red Blood Count 3.57 M/mm3 (4.6-6.20); White Blood Count 11.8 K/mm3 (4.5-10.0)
[2021-09-23 10:41] LABS: Alanine Aminotransferase 61 U/L (6-50); Albumin Level 2.7 g/dL (3.5-5.1); Alkaline Phosphatase 92 U/L (38-126); Anion Gap 4 mmol/L (8-16); Aspartate Amino Transferase 32 U/L (17-59); Bilirubin,Total 0.4 mg/dL (0.2-1.3); Blood Urea Nitrogen 11 mg/dL (9-20); Calcium 7.9 mg/dL (8.4-10.2); Carbon Dioxide 21 mmol/L (22-30); Chloride 107 mmol/L (98-107); Estimated CRCL calculation 62 ml/min; Estimated Glomerular Filt Rate > 60; Glucose 85 mg/dL (65-110); Potassium 3.5 mmol/L (3.4-5.0); Sodium 132 mmol/L (137-145)
[2021-09-23] MEDS: SODIUM CHLORIDE 0.9% IV 1,000 ML 999 ML IV CONT (12:42)
[2021-09-23] MEDS: SODIUM CHLORIDE 1 GM TABLET PO (16:16)
[2021-09-23] MEDS: MELATONIN 3 MG TABLET PO (20:37)
[2021-09-24 06:00] VITALS: BP 150/84; PULSE 86; RESP 21; TEMP 36.3; O2SAT 100
[2021-09-24] MEDS: MEGESTROL ACETATE (*CHEMO) 40 MG TABLET PO ×3 (07:55→17:14)
[2021-09-24] MEDS: LACTASE 3,000 UNIT TABLET 3000 UNIT PO ×3 (07:55→17:14)
[2021-09-24] MEDS: MIDODRINE HCL 2.5 MG TABLET 7.5 MG PO ×4 (07:55→20:36)
[2021-09-24] MEDS: predniSONE 10 MG TABLET 30 MG PO (07:56)
[2021-09-24] MEDS: SODIUM CHLORIDE 1 GM TABLET PO ×2 (07:56→17:14)
[2021-09-24] MEDS: MESALAMINE 250 MG CAP CR 1000 MG PO ×4 (07:56→20:36)
[2021-09-24] MEDS: FOLIC ACID 1 MG TABLET PO (07:56)
[2021-09-24] MEDS: predniSONE 20 MG TABLET 30 MG PO (07:57)
[2021-09-24 08:00] VITALS: PULSE 86; RESP 21; O2SAT 100
[2021-09-24 09:54] LABS: Eosinophils Absolute Auto 0.1 K/mm3 (0-0.3); Eosinophils Percent Auto 1.1 % (0-4.4); Hematocrit 30.3 % (42.0-52.0); Hemoglobin 9.8 g/dL (14.0-18.0); Immature Granulocyte Absolute 0.03 K/mm3 (0.00-0.031); Immature Granulocyte Percent A 0.4 % (0-0.5); Lymphocytes Absolute Auto 1.33 K/mm3 (0.9-3.2); Lymphocytes Percent Auto 15.6 % (18.3-44.2); Mean Corpuscular HGB Conc 32.3 g/dl (32-36); Mean Corpuscular Hemoglobin 29.8 pg (26-34); Mean Corpuscular Volume 92.1 fl (80-100); Monocytes Absolute Auto 0.4 K/mm3 (0.1-0.6); Monocytes Percent Auto 4.8 % (2.6-8.5); Neutrophils Absolute Auto 6.7 K/mm3 (1.3-6.7); Neutrophils Percent Auto 78.1 % (45.5-73.1); Platelet Count Result 322 k/mm3 (150-375); Red Blood Count 3.29 M/mm3 (4.6-6.20); Red Cell Distribution Width 16.3 % (11.5-14.5); White Blood Count 8.5 K/mm3 (4.5-10.0)
[2021-09-24 10:11] LABS: Alanine Aminotransferase 56 U/L (6-50); Albumin Level 2.5 g/dL (3.5-5.1); Alkaline Phosphatase 81 U/L (38-126); Anion Gap 4 mmol/L (8-16); Aspartate Amino Transferase 36 U/L (17-59); Bilirubin,Total 0.4 mg/dL (0.2-1.3); Blood Urea Nitrogen 12 mg/dL (9-20); Calcium 7.9 mg/dL (8.4-10.2); Carbon Dioxide 23 mmol/L (22-30); Chloride 105 mmol/L (98-107); Estimated CRCL calculation 62 ml/min; Estimated Glomerular Filt Rate > 60; Glucose 122 mg/dL (65-110); Potassium 3.4 mmol/L (3.4-5.0); Sodium 132 mmol/L (137-145)
--- NOTE | 2021-09-24 10:11 | PM.IMPN ---
Progress Note: A&P Assessment and Plan (1) Chronic pancolonic ulcerative colitis: Code(s): K51.00 - Ulcerative (chronic) pancolitis without complications Status: Acute Assessment and Plan: Pancolitis with underlying ulcerative colitis (confirmed on biopsy from colonoscopy done September 17) being treated with mesalamine. He did receive a 5 day course of Levaquin and Flagyl upon admission before stool cultures came back negative and these were discontinued. Appreciate GI consultation. Continue low-dose prednisone taper. GI recommends outpatient management with possible biologic. (2) Acute GI bleeding: Code(s): K92.2 - Gastrointestinal hemorrhage, unspecified Status: Acute Assessment and Plan: Resolved, hemoglobin stable, no further reports of blood in stool (3) Failure to thrive: Status: Acute Assessment and Plan: No specific etiology, ulcerative colitis flare appears to be resolving however p.o. intake is not improving. Suspect this is secondary to patient's underlying dementia with a multifactorial etiology. Continue to monitor oral intake. Patient's daughter is currently deciding if she would like to proceed with feeding tube placement vs hospice care. (4) Protein calorie malnutrition: Code(s): E46 - Unspecified protein-calorie malnutrition Status: Acute Assessment and Plan: Appreciate Nutrition consultation. Continue Megace. No appetite increase, even while on steroids. See above. (5) Hyponatremia: Code(s): E87.1 - Hypo-osmolality and hyponatremia Status: Acute Assessment and Plan: Unsure of specific etiology, likely multifactorial, but appears asymptomatic with a baseline around 130-132. Sodium remains consistent with baseline today at 132 (6) Hypokalemia: Code(s): E87.6 - Hypokalemia Status: Resolved Assessment and Plan: Resolved (7) Dementia: Code(s): F03.90 - Unspecified dementia without behavioral disturbance Status: Acute Assessment and Plan: Daughter reports patient was diagnosed with dementia in July. Not currently on any medications. Likely contributing to failure to thrive (8) Orthostatic hypotension: Code(s): I95.1 - Orthostatic hypotension Status: Acute Assessment and Plan: Patient with significant drop in systolic blood pressures with positional changes. Remains on midodrine (home medication) without much improvement. Patient was noted to be symptomatic. Received IV fluid bolus yesterday. Started on salt tabs. Continue Edy hose. Monitor orthostatics Subjective Date/time seen: 09/24/21 10:11 Interval history: Date of service: 09/24/2021 Philip Hernández is a 75-year-old male with a history of CVA, CAD, and ulcerative colitis who is seen in follow-up for ulcerative colitis and failure to thrive. Patient states he is cold today. He did just get on working with therapy and felt he did well with this. He denies feeling dizzy or lightheaded but does endorse weakness. He denies shortness of breath or chest pain. Denies further episodes of diarrhea. Denies abdominal pain. When asked if he ate breakfast today he stated ?I think. But could not state what he had for breakfast. Review of Systems Review of Systems: All systems reviewed & are unremarkable except as noted in HPI and below Exam Narrative: General: Thin, tired appearing 75-year-old male, supine in bed with legs tucked up to his abdomen, appears comfortable, NARD Neuro: awake, alert, answering questions appropriately, follows all commands, speech clear, no focal neuro deficits noted HEENMT: normocephalic, atraumatic, EOMI, sclerae anicteric Respiratory: clear to auscultation bilaterally, nonlabored breathing Cardio: regular rate, regular rhythm with S1-S2 Abdomen: nondistended, normoactive bowel sounds, soft, nontender to palpation Extremities: no edema, erythema
[2021-09-24] MEDS: COLLAGENASE OINT 30 GM TUBE 1 APPLIC TOPICAL (10:52)
--- NOTE | 2021-09-24 13:25 | PCPTNOTE ---
Attempted to see patient two times this afternoon. First time RN reported patient is eating and request therapy check back. Second time patient refused and seemed lethargic. Checked blood pressure supine, blood pressure 102/66. RN aware.
[2021-09-24 13:52] VITALS: BP 111/67; PULSE 83; RESP 18; TEMP 36.7; O2SAT 100
--- NOTE | 2021-09-24 13:59 | PCNFU ---
Nutrition Follow-Up Complete: Suboptimal po intake related to reduced appetite as evidenced by low meal intake. Goal: Meet nutritional needs. Pt is progressing towards goal. Pt current nutrition is regular diet. Pt receives Ensure Compact sent TID: 220 kcals, 9 grams protein per bottle. Last recorded weight is 60.9 kg. Weight is stable. Bowel Motility: + BM Labs Reviewed: Hgb:9.8, Hct:30.3, Alb:2.5, Na:132, Glu:122 Meds Noted: megace, zofran, pentasa, proamatine, folic acid, lactaid, melatonin Skin: WNL Additional Notes: Continue with current regular diet order. Ensure Compact sent TID: 220 kcals, 9 grams protein per bottle. Current intake is improving with 90% breakfast intake this morning and 25% lunch. Discussion with MD regarding possible Tube feeding. Daughter is still considering whether to place him on tube feeding or in hospice care. Agree with diet orders. Monitor intake, diet order, wt, labs. Follow up in 3 days.
--- NOTE | 2021-09-24 14:15 | PCNSR ---
On 09/24/21, the student, Anamaria Rodriguez, provided care and completed [facility] documentation on this patient. I have reviewed the student's documentation and agree with the findings.
[2021-09-24 20:00] VITALS: BP 111/67; PULSE 83; RESP 18; TEMP 36.7; O2SAT 100
[2021-09-24] MEDS: MELATONIN 3 MG TABLET PO (20:36)
[2021-09-24 22:58] VITALS: BP 121/76; PULSE 81; RESP 16; TEMP 36.4; O2SAT 100
[2021-09-25] VITALS (7 sets, daily range): BP systolic 88–119; BP diastolic 38–71; PULSE 70–126; RESP 12–16; TEMP 36.6–36.8; O2SAT 93–100
[2021-09-25] MEDS: SODIUM CHLORIDE 1 GM TABLET PO ×2 (08:17→16:43)
[2021-09-25] MEDS: MESALAMINE 250 MG CAP CR 1000 MG PO ×4 (08:17→20:22)
[2021-09-25] MEDS: predniSONE 10 MG TABLET 20 MG PO (08:18)
[2021-09-25] MEDS: MEGESTROL ACETATE (*CHEMO) 40 MG TABLET PO ×3 (08:18→16:42)
[2021-09-25] MEDS: MIDODRINE HCL 2.5 MG TABLET 7.5 MG PO ×2 (08:18→12:25)
[2021-09-25] MEDS: FOLIC ACID 1 MG TABLET PO (08:18)
[2021-09-25] MEDS: COLLAGENASE OINT 30 GM TUBE 1 APPLIC TOPICAL (08:18)
[2021-09-25] MEDS: LACTASE 3,000 UNIT TABLET 3000 UNIT PO ×3 (08:18→16:42)
--- NOTE | 2021-09-25 15:28 | PM.IMPN ---
Progress Note: A&P Assessment and Plan (1) Chronic pancolonic ulcerative colitis: Code(s): K51.00 - Ulcerative (chronic) pancolitis without complications Status: Acute Assessment and Plan: Pancolitis with underlying ulcerative colitis (confirmed on biopsy from colonoscopy done September 17) being treated with mesalamine. He did receive a 5 day course of Levaquin and Flagyl upon admission before stool cultures came back negative and these were discontinued. Appreciate GI consultation. Continue prednisone taper, currently on 30 mg daily. Will need close outpatient GI follow-up (2) Acute GI bleeding: Code(s): K92.2 - Gastrointestinal hemorrhage, unspecified Status: Acute Assessment and Plan: Resolved, hemoglobin stable, no further reports of blood in stool (3) Failure to thrive: Status: Acute Assessment and Plan: Suspect this is secondary to patient's underlying dementia with a multifactorial etiology. Previous provider discussed with daughter feeding tube placement versus hospice care. Patient is opposed to feeding tube. Continue to monitor oral intake. PO. intake seems to be slowly improving. Patient does consume all of his Ensure supplements and has been eating all of the outside food brought in by family. Continue to encourage adequate p.o. intake. Restart sertraline 25 mg daily which was stopped at his halfway for unclear reasons. (4) Protein calorie malnutrition: Code(s): E46 - Unspecified protein-calorie malnutrition Status: Acute Assessment and Plan: Appreciate Nutrition consultation. Continue Megace. PO intake slowly improving. (5) Hyponatremia: Code(s): E87.1 - Hypo-osmolality and hyponatremia Status: Acute Assessment and Plan: Unsure of specific etiology, likely multifactorial, but appears asymptomatic with a baseline around 130-132. Monitor sodium closely with addition of sertraline. (6) Hypokalemia: Code(s): E87.6 - Hypokalemia Status: Resolved Assessment and Plan: Resolved (7) Dementia: Code(s): F03.90 - Unspecified dementia without behavioral disturbance Status: Acute Assessment and Plan: Daughter reports patient was diagnosed with dementia in July. Not currently on any medications. Likely contributing to failure to thrive (8) Orthostatic hypotension: Code(s): I95.1 - Orthostatic hypotension Status: Acute Assessment and Plan: Patient with significant drop in systolic blood pressures with positional changes and is symptomatic. Has been appropriately rehydrated. Continue CARLEE hose. Will increase midodrine to 10 mg and change to TID during waking hours. Monitor orthostatics Subjective Date/time seen: 09/25/21 15:28 Interval history: Date of service: 09/25/2021 Philip Hernández is a 75-year-old male with a history of CVA, CAD, and ulcerative colitis who is seen in follow-up for ulcerative colitis and failure to thrive. he feels okay today. He had trouble sleeping last night because he stated it was noisy. He could not get comfortable. He feels tired today. He can not remember if he ate breakfast. Not able to provide any additional history. Discussed with RN. Reports he is eating better. He still is having loose stools. Spoke with patient's [id number], Sonya, via phone for 12 minutes to provide updates and answer questions regarding patient's medications Review of Systems Review of Systems: ROS unobtainable: Yes unobtainable due to mental status Exam Narrative: General: Thin, tired appearing 75-year-old male, supine in bed, appears comfortable, NARD Neuro: awake, alert and oriented x3, answers all questions appropriately but is forgetful, follows all commands, speech clear, no focal neuro deficits noted HEENMT: normocephalic, atraumatic, EOMI, sclerae anicteric Respiratory: clear to auscultation bilaterally, non
[2021-09-25 16:52] LABS: Alanine Aminotransferase 109 U/L (6-50); Albumin Level 2.8 g/dL (3.5-5.1); Alkaline Phosphatase 121 U/L (38-126); Anion Gap 5 mmol/L (8-16); Aspartate Amino Transferase 74 U/L (17-59); Bilirubin,Total 0.3 mg/dL (0.2-1.3); Blood Urea Nitrogen 14 mg/dL (9-20); Calcium 7.9 mg/dL (8.4-10.2); Carbon Dioxide 23 mmol/L (22-30); Chloride 105 mmol/L (98-107); Estimated CRCL calculation 55 ml/min; Estimated Glomerular Filt Rate > 60; Glucose 242 mg/dL (65-110); Sodium 133 mmol/L (137-145)
--- NOTE | 2021-09-25 17:05 | WPDGIPROGNO ---
Progress Note: A&P Assessment and Plan (1) Pancolitis: Code(s): K51.00 - Ulcerative (chronic) pancolitis without complications Status: Acute Assessment and Plan: given the fact that he has apparently had evidence of beverly colitis for at least 6 months, this suggests that he has inflammatory bowel disease, most likely ulcerative colitis. Colonoscopy would be very helpful 09/19/2021 biopsies do confirm ulcerative colitis. This severely suggested he may in fact at some point need a biologic. I am not sure how that could be managed at home. I think we can discontinue the intravenous steroids and started tapering dose of prednisone, 40 mg/ day for 1 week; then 30 mg etcetera 09/21/[address] Montaño. She knows that he had been started on mesalamine. He was then in the hospital, then in the rehab center he is now in detention. Because he has been in and out of various institutions she believes that somewhere along the line mesalamine was discontinued. She found records that indicate he was on 500 mg 3 times a day in June, but believes that Some provider noted that and stated that they were going to increase his dose. It was not listed as 1 of his medications at admission and it appears that he has been off of it for at least a month or so. At any rate I explained that mesalamine is the 1st step in treating ulcer colitis. If that fails we would need to consider a biologic but at this point is too soon to know whether that is necessary. fecal calprotectin level is 3890. This is of course high but will serve as a baseline to guide us in therapy and follow disease activity. 09/25/2021 I repeating a calprotectin level today anticipating that he might be discharged tomorrow . I discussed his case with hospitalist. The plan is that he will go home in his current regimen, continuing steroid taper and then follow-up with me in the office in 4 weeks (2) Acute GI bleeding: Code(s): K92.2 - Gastrointestinal hemorrhage, unspecified Status: Acute Assessment and Plan: no further bleeding. His hemoglobin today is higher than yesterday. It is now 10.7 and 32.7 09/19/2021 Hemoglobin today is 12.9 (3) Protein calorie malnutrition: Code(s): E46 - Unspecified protein-calorie malnutrition Status: Acute Assessment and Plan: he states that he has lost 40 lb. His albumin is 1.9. He also has lymphopenia supporting protein calorie malnutrition 09/21/2021 albumin actually has increased, though his oral intake is still negligible. The daughter is considering gastrostomy tube feedings and other options. 09/25/2021 his nutrition is definitely improved as reflected by his oral intake. He is taking all of his nutritional supplements, Ensure, as well as food from home including milk shakes. This is dramatically improved from when, on admission, he was lethargic and seemed very very uninterested in food. Subjective Date/time seen: 09/19/21? 07:01 Patient has no complaints today.? No bloody stools have been noted.? Biopsies do confirm that he has severe ulcerative colitis.? Apparently the family had been aware of that.? When I asked the patient if he had been told in the past that he had colitis he nodded 'yes' but he cannot recall anything about medications? which he may have taken. ? I see in the hospitalist's notes that the family recalls him being on mesalamine earlier in the year.? Apparently he was treated somewhere else. 09/21/21? 06:43 I spoke with the patient's daughter, Heather, who is the POA for the patient yesterday.? She described how he was initially diagnosed with ulcerative colitis by Dr. Montaño.? She knows that he had been started on mesalamine.? ? He was then in the hospital, then in the rehab center he is now in detention.? Because he has been in and out of various institutions she believes that somewhere along the line mesalamine was discontinued.? She found records that indicate
[2021-09-25] MEDS: MIDODRINE HCL 10 MG TABLET PO (17:18)
[2021-09-25] MEDS: MELATONIN 3 MG TABLET PO (20:23)
[2021-09-26 06:15] VITALS: BP 125/75; PULSE 72; RESP 16; TEMP 36.4; O2SAT 95
[2021-09-26 06:15] LABS: Hematocrit 33.6 % (42.0-52.0); Mean Corpuscular HGB Conc 32.7 g/dl (32-36); Mean Corpuscular Volume 91.6 fl (80-100); Mean Platelet Volume 9.3 fl (7.4-10.4); Platelet Count Result 369 k/mm3 (150-375); Red Blood Count 3.67 M/mm3 (4.6-6.20); Red Cell Distribution Width 16.4 % (11.5-14.5); White Blood Count 12.5 K/mm3 (4.5-10.0)
[2021-09-26 06:22] LABS: Alanine Aminotransferase 119 U/L (6-50); Albumin Level 2.9 g/dL (3.5-5.1); Alkaline Phosphatase 127 U/L (38-126); Anion Gap 5 mmol/L (8-16); Aspartate Amino Transferase 57 U/L (17-59); Bilirubin,Total 0.5 mg/dL (0.2-1.3); Blood Urea Nitrogen 15 mg/dL (9-20); Calcium 8.2 mg/dL (8.4-10.2); Carbon Dioxide 22 mmol/L (22-30); Chloride 107 mmol/L (98-107); Estimated CRCL calculation 62 ml/min; Estimated Glomerular Filt Rate > 60; Glucose 100 mg/dL (65-110); Potassium 4.3 mmol/L (3.4-5.0); Sodium 134 mmol/L (137-145)
[2021-09-26] MEDS: SODIUM CHLORIDE 1 GM TABLET PO (09:09)
[2021-09-26] MEDS: MIDODRINE HCL 10 MG TABLET PO ×2 (09:09→12:56)
[2021-09-26] MEDS: LACTASE 3,000 UNIT TABLET 3000 UNIT PO ×2 (09:09→12:56)
[2021-09-26] MEDS: MESALAMINE 250 MG CAP CR 1000 MG PO ×2 (09:09→12:56)
[2021-09-26] MEDS: MEGESTROL ACETATE (*CHEMO) 40 MG TABLET PO ×2 (09:09→12:56)
[2021-09-26] MEDS: LOPERAMIDE HCL 2 MG CAPSULE 4 MG PO (09:09)
[2021-09-26] MEDS: FOLIC ACID 1 MG TABLET PO (09:10)
[2021-09-26] MEDS: COLLAGENASE OINT 30 GM TUBE 1 APPLIC TOPICAL (09:10)
[2021-09-26] MEDS: SERTRALINE HCL 25 MG TABLET PO (09:10)
[2021-09-26] MEDS: predniSONE 10 MG TABLET 20 MG PO (09:10)
[2021-09-26 13:43] VITALS: BP 125/72
[2021-09-26 13:45] VITALS: BP 112/70
[2021-09-26 14:38] LABS: EDCOVIDSCREEN Negative (Negative)
--- NOTE | 2021-09-26 14:43 | PM.DS ---
DS: Admitting Diagnosis Discharge Date 09/26/2021 Admitting Diagnosis Pancolitis DS: Discharge Diagnosis Discharge Diagnosis (1) Chronic pancolonic ulcerative colitis: Code(s): K51.00 - Ulcerative (chronic) pancolitis without complications Status: Acute Assessment and Plan: Pancolitis with underlying ulcerative colitis confirmed on biopsy from colonoscopy done September 17. He was restarted on Ms. Alanine 1000 mg qid. being treated with mesalamine (had previously been taking but was instructed to stop for unclear reasons). He did receive a 5 day course of Levaquin and Flagyl upon admission before stool cultures came back negative and these were discontinued. He was started on Solu-Medrol and transition to a p.o. prednisone taper which she will continue as an outpatient. He will follow-up with GI in 1 month for monitoring of medication therapy. (2) Acute GI bleeding: Code(s): K92.2 - Gastrointestinal hemorrhage, unspecified Status: Acute Assessment and Plan: Aguirre to be secondary to above. Resolved. Hemoglobin remained stable. (3) Failure to thrive: Status: Acute Assessment and Plan: Suspect this is secondary to patient's underlying dementia with a multifactorial etiology. Previous provider discussed with daughter feeding tube placement versus hospice care. Patient is opposed to feeding tube and family wished to defer hospice following informational meeting. His p.o. intake did slowly begin to improve. Sertraline 25 mg daily was restarted (also previously stopped for unclear reasons) and he was started on Megace 40 mg t.i.d. Continue nutrition supplements with each meal. (4) Protein calorie malnutrition: Code(s): E46 - Unspecified protein-calorie malnutrition Status: Acute Assessment and Plan: See above. Dietary consult completed during hospital stay. (5) Hyponatremia: Code(s): E87.1 - Hypo-osmolality and hyponatremia Status: Acute Assessment and Plan: Unsure of specific etiology, likely multifactorial, but appears asymptomatic with a baseline around 130-132. SSRI res her sodium remained stable. Continue to monitor on outpatient labs. (6) Hypokalemia: Code(s): E87.6 - Hypokalemia Status: Resolved Assessment and Plan: Resolved (7) Dementia: Code(s): F03.90 - Unspecified dementia without behavioral disturbance Status: Acute Assessment and Plan: Daughter reports patient was diagnosed with dementia in July. Not currently on any medications. Likely contributing to failure to thrive (8) Orthostatic hypotension: Code(s): I95.1 - Orthostatic hypotension Status: Acute Assessment and Plan: Patient with significant drop in systolic blood pressures with positional changes and was symptomatic. He was appropriately rehydrated. Continue CARLEE hose. Midodrine changed to 10 mg TID during waking hours (previously 7.5 mg qid). Subsequent orthostatics improved. Implement fall precautions DS: Summary Hospital Course Hospital Course: Date of admission: 09/04/2021 Date of discharge: 09/26/2021 Philip Hernández is a 75-year-old male with a history of CVA and CAD who presented to the emergency department on 09/04/2021 from his [facility] due to bloody stool found in his depends. On presentation to the ED, his vital signs are stable, hemoglobin 12.1, sodium 129, additional laboratory workup unremarkable, CT of the abdomen/pelvis showed findings consistent with beverly colitis. He was admitted to the hospitalist service for further evaluation management was seen in consultation by Gastroenterology. Please see above for further details. Patient underwent colonoscopy on 09/17/2021 which was consistent with ulcerative pancolitis, later confirmed on biopsy. Following the diagnostic colonoscopy, the patient's daughter reported that the patient already carried this diagnosis al
[2021-09-26 15:27] VITALS: BP 108/65; PULSE 90; RESP 16; TEMP 36.6; O2SAT 100
[2021-10-03 01:57] LABS: Calprotectin, Stool 31 mcg/g
== END 2021-09-26 17:42 | DRG 385 ==
LOC: ANHED 14:54 → ANH2MED 16:49
PROVIDERS: Internal Medicine Gastroenterology; Nurse Practitioner Adult Health; Physician Assistant; Admitting Provider Student in an Organized Health Care Education/Training Program; Emergency Provider Emergency Medicine; Visit Provider Physician Assistant
PROC: 0DJD8ZZ Inspection of Lower Intestinal Tract, Via Natural or Artificial Opening Endoscopic (ICD-10-PCS; CPT 45378; principal; 2021-09-17 14:15)
PROC: 0DJ08ZZ Inspection of Upper Intestinal Tract, Via Natural or Artificial Opening Endoscopic (ICD-10-PCS; CPT 43235; principal; 2021-09-20 13:00)
DX: K51.018 Ulcerative (chronic) pancolitis with other complication (principal); G93.41 Metabolic encephalopathy; K92.2 Gastrointestinal hemorrhage, unspecified; E46 Unspecified protein-calorie malnutrition; E87.1 Hypo-osmolality and hyponatremia; K64.8 Other hemorrhoids; K57.30 Diverticulosis of large intestine without perforation or abscess without bleeding; Z68.21 Body mass index [BMI] 21.0-21.9, adult; Z20.822 Contact with and (suspected) exposure to COVID-19; E86.0 Dehydration; E87.6 Hypokalemia; K44.9 Diaphragmatic hernia without obstruction or gangrene; K29.80 Duodenitis without bleeding; F03.90 Unspecified dementia, unspecified severity, without behavioral disturbance, psychotic disturbance, mood disturbance, and anxiety; I95.1 Orthostatic hypotension; I25.10 Atherosclerotic heart disease of native coronary artery without angina pectoris; R62.7 Adult failure to thrive; Z86.73 Personal history of transient ischemic attack (TIA), and cerebral infarction without residual deficits; I25.2 Old myocardial infarction; Z87.891 Personal history of nicotine dependence
CPT/HCPCS: 36415; 70450; 73562; 74176; 80048; 80053; 81001; 82040; 82274; 82948; 83690; 83735; 83993; 85014; 85018; 85025; 85027; 85610; 85730; 86140; 86850; 86900; 86901; 87045; 87081; 87269; 87272; 87426; 87427; 88305; 89055; 96365; 96366; 96375; 96376; 97110; 97116; 97161; 97165; 97530; 97535; 99285; A9270; C9113; C9803; G0378; J1956; J2405; J2704; J2920; J3475; J3480; J7030; J7040; J7120; J7512